=== PATIENT | male | born 1950 | race Caucasian/White ===

== ENCOUNTER 2021-04-27 01:48 | Inpatient (IN) | payer MEDICARE, SELFPAY ==
[2021-04-27] VITALS (25 sets, daily range): BP systolic 116–140; BP diastolic 63–90; PULSE 51–82; RESP 16–22; TEMP 36.1–36.8; O2SAT 94–98; BMI 40.8
--- NOTE | ~2021-04-27 | CT_ITS ---
EXAMINATION: CT abdomen pelvis wo con DATE: 04/30/2021 10:56 INDICATION: Abdominal pain. TECHNIQUE: Computed tomography (CT) of the abdomen and pelvis was performed without intravenous contr ast. Automated exposure control and iterative reconstruction technique were employed. The dose-length product was 1640.35 mGy-cm. COMPARISON: CT abdomen and pelvis 04/27/2021 FINDINGS: The visualized portions of the lung bases demonstrates a small right pleural effusion. A ca lcified right lung nodule and calcified right hilar lymph nodes are consistent with old granulomatous disease. The heart size is normal. There are coronary artery calcifications. No pericardial effusion . The liver is normal. Calcifications in the spleen are consistent with old granulomatous disease. Th ere is a gallstone in the gallbladder, which is normal in size. The pancreas, adrenal glands, and kid neys are normal. The prostate is mildly enlarged. There is diverticulosis of the colon without eviden ce of diverticulitis. There are changes of appendectomy. There is a small volume of ascites in right abdomen, including adjacent to the site of the appendectomy and around the liver. Anterior skin stapl es are noted. There are no pathologically enlarged lymph nodes. There is internal fixation of proxima l left femur. There is mild thoracolumbar spondylosis. IMPRESSION: 1. Small volume of ascites in right abdomen. 2. Small right pleural effusion. 3. Cholelithiasis. Reviewed, dictated and finalized at location A.
--- NOTE | ~2021-04-27 | NM_ITS ---
EXAMINATION: NM hepatobiliary wo pharm DATE: 05/01/2021 12:56 INDICATION: Right upper quadrant abdominal pain. COMPARISON: CT abdomen and pelvis 04/30/2021 TECHNIQUE: 4.5 mCi Tc-99m mebrofenin (Choletec) was administered intravenously. Scintigraphic images of the abdomen were obtained for one hour. Then, the patient drank 8 oz Ensure, and imaging was cont inued for 60 minutes. FINDINGS: There is normal clearance of radiotracer from the blood pool. There is homogeneous tracer u ptake by the liver. Activity progresses to the bowel and gallbladder. Gallbladder ejection fraction (GBEF) was 35%. Note that with this technique, normal GBEF >= 33%. IMPRESSION: 1. Normal hepatobiliary scintigraphy. Reviewed, dictated and finalized at location A.
--- NOTE | ~2021-04-27 | XR_ITS ---
EXAMINATION: XR abdomen obstructive series DATE: 05/01/2021 13:01 INDICATION: Abdominal pain. TECHNIQUE: Upright and supine views of the abdomen were obtained. COMPARISON: CT abdomen and pelvis 04/30/2021 FINDINGS: There is dilated small bowel in left abdomen. The colon is normal in caliber. There is a ca lcified gallstone in the gallbladder. No free intraperitoneal gas. There is a small right pleural eff usion. There is a closure device at left atrial appendage. There is instrumentation of proximal left femur. Skin clint are noted. IMPRESSION: 1. Dilated small bowel, likely adynamic ileus. 2. Cholelithiasis. 3. Small right pleural effusion. Reviewed, dictated and finalized at location A.
--- NOTE | ~2021-04-27 | CT_ITS ---
EXAMINATION: CT guide absc cath placement DATE: 05/02/2021 14:15 INDICATION: Right abdominal fluid collection. TECHNIQUE: The procedure including the risks, benefits, and alternatives was discussed with the patie nt. Risks discussed included bleeding and infection. The patient understood the risks and benefits an d agreed to proceed. The patient was confirmed to be receiving appropriate antibiotic coverage. The skin overlying the right abdomen was prepped and draped in usual sterile fashion. Anesthetic was adm inistered with 1% lidocaine subcutaneously. An 18 gauge trochar needle was inserted into the right ab dominal fluid collection with CT guidance. The needle was exchanged over a wire for 6 Macanese, 8 Frenc h, and 9 Macanese dilators and then for an 8.5 Macanese pigtail catheter. The catheter was stitched to th e skin, and a sterile dressing was applied. The mA was adjusted according to patient size. Iterative reconstruction technique was employed. The dose-length product was 200.09 mGy-cm. There were no immed iate complications. FINDINGS: CT images demonstrate the catheter within the right abdominal fluid collection. 8 mL fluid was aspirated for testing. There is a gallstone in the gallbladder, which is contracted. There is dil ated small bowel, consistent with adynamic ileus. IMPRESSION: 1. Successful CT-guided right abdominal abscess drainage. 2. 8 mL opaque, red fluid was sent for aerobic and anaerobic cultures. Reviewed, dictated and finalized at location A.
--- NOTE | ~2021-04-27 | XR_ITS ---
EXAMINATION: XR perc drain cath insrt w img DATE: 05/08/2021 13:00 INDICATION: Intra-abdominal abscess. TECHNIQUE: The right abdominal drainage catheter site was sterilely prepped and draped. I cut the exi sting percutaneous drainage catheter and injected it with contrast. I then exchanged it over a guidew genie for 10 Mongolian and 12 Mongolian dilators and then a 14 Mongolian pigtail drain under fluoroscopic guidan ce. The catheter was stitched to the skin, and a dressing was applied. Fluoroscopy exposure time was 1.2 minutes. The total number of images was 4. Total dose-area product was 7.86 Gy-cm^2. COMPARISON: CT abdomen and pelvis 05/08/2021 FINDINGS: Images demonstrate exchange of the 8.5 Mongolian pigtail drain for a new 14 Mongolian pigtail sonal in. IMPRESSION: 1. Fluoroscopy guided right abdominal percutaneous abscess drain exchange. Reviewed, dictated and finalized at location A.
--- NOTE | ~2021-04-27 | XR_ITS ---
EXAMINATION: XR abdomen/kub 1V DATE: 05/04/2021 13:03 INDICATION: Bilious vomiting. Hypoactive bowel sounds. TECHNIQUE: A supine view of the abdomen on 2 radiographs was obtained. COMPARISON: Abdomen radiographs 05/01/2021 FINDINGS: There are multiple dilated loops of small bowel. Skin clint are noted. There is internal fixation of proximal left femur. There is a gallstone in the gallbladder. There is a closure device a t the left atrial appendage. Retained epicardial pacer wires are noted. There is a small right pleura l effusion. IMPRESSION: 1. Dilated small bowel, likely adynamic ileus. 2. Small right pleural effusion. 3. Cholelithiasis. Reviewed, dictated and finalized at location A.
--- NOTE | ~2021-04-27 | CT_ITS ---
EXAMINATION: CT abdomen pelvis w con DATE: 04/27/2021 03:15 INDICATION: Abdominal pain. TECHNIQUE: Computed tomography (CT) of the abdomen and pelvis was performed with 100 mL Omnipaque 350 intravenous contrast. Automated exposure control and iterative reconstruction technique were employe d. The dose-length product was 1650.68 mGy-cm. COMPARISON: None. FINDINGS: The visualized portions of the lung bases demonstrate mild atelectasis. A calcified right l geremias nodule and calcified right hilar and mediastinal lymph nodes are consistent with old granulomatou s disease. No pleural effusion. The heart size is normal. There are coronary artery calcifications. N o pericardial effusion. Retained epicardial pacer wires are noted. Median sternotomy wires are noted. The liver is normal. Calcifications in the spleen are consistent with old granulomatous disease. The re is a gallstone in the gallbladder neck. The gallbladder is distended. The pancreas, adrenal glands , and kidneys are normal. The prostate is mildly enlarged. There is diverticulosis of the colon witho ut evidence of diverticulitis. The appendix measures 10 mm in diameter. The appendiceal lumen is not dilated. The appendiceal wall is thickened by fat deposition. There are no pathologically enlarged ly mph nodes. There is no free intraperitoneal fluid. There is internal fixation of proximal left femur. There is mild lumbar spondylosis. IMPRESSION: 1. Distended gallbladder with gallstone in the neck suspicious for acute cholecystitis. 2. Appendiceal diameter of 10 mm, likely predominantly due to fat deposition in the wall. No inflamma tion to suggest appendicitis. Reviewed, dictated and finalized at location A. IMPRESSION: 1. Distended gallbladder with gallstone in the neck suspicious for acute cholec ystitis. 2. Appendiceal diameter of 10 mm, likely predominantly due to fat deposition in the wall. No inflammation to suggest appendicitis.
--- NOTE | ~2021-04-27 | XR_ITS ---
EXAMINATION: XR abdomen obstructive series EXAM DATE: 05/06/2021 08:48 INDICATION: Ileus follow-up. Postcholecystectomy. TECHNIQUE: Frontal upright projection of the upper abdomen, frontal projection of the lower abdomen f or interpretation. Comparison is made to prior examination from 05/04/2021. FINDINGS: Persistent severely distended loops of jejunum, probably postoperative ileus. There are low er abdominal clint. No appreciable free intraperitoneal gas. Small right pleural effusion. Sternoto my wires. Mild levoscoliosis. IMPRESSION: Persistent jejunal dilation, likely postoperative ileus. Reviewed, dictated and finalized at location A.
--- NOTE | ~2021-04-27 | CT_ITS ---
EXAMINATION: CTA chest PE protocol DATE: 05/01/2021 13:08 INDICATION: Cough. TECHNIQUE: Computed tomography angiography (CTA) of the chest was performed with 100 mL Omnipaque-350 intravenous contrast timed to evaluate the pulmonary arteries. Coronal maximum intensity projection 3D-reconstructions were created by the technologist. Automated exposure control and iterative reconst ruction technique were employed. The dose-length product was 987.44 mGy-cm. COMPARISON: CT abdomen and pelvis 04/30/2021 FINDINGS: There is a small right pleural effusion. There is dependent atelectasis in right lower lobe . Calcified right lung nodules and calcified right hilar lymph nodes are consistent with old granulom atous disease. The heart demonstrates lipomatous hypertrophy of the interatrial septum. There is a cl osure device at the left atrial appendage. No pericardial effusion. There is no pulmonary embolus. Th ere is a gallstone in the gallbladder, which is normal in size. There is a small volume of perihepati c ascites. Calcifications in the spleen are consistent with old granulomatous disease. IMPRESSION: 1. No pulmonary embolus. 2. Small right pleural effusion. 3. Small volume of perihepatic ascites. 4. Cholelithiasis. Reviewed, dictated and finalized at location A.
--- NOTE | ~2021-04-27 | US_ITS ---
EXAMINATION: US venous doppler [facility] DATE: 05/01/2021 13:24 INDICATION: Lower limb edema. TECHNIQUE: Grayscale ultrasound images without and with compression and Doppler ultrasound images of the bilateral lower extremity veins were obtained. COMPARISON: None. FINDINGS: The visualized portions of right common femoral vein, profunda (deep) femoral vein, femoral vein, pop liteal vein, peroneal veins, posterior tibial veins, and greater saphenous vein outflow are patent. The visualized portions of left common femoral vein, profunda femoral vein, femoral vein, popliteal v ein, peroneal veins, posterior tibial veins, and greater saphenous vein outflow are patent. IMPRESSION: 1. No deep venous thrombosis. Reviewed, dictated and finalized at location A.
--- NOTE | ~2021-04-27 | XR_ITS ---
EXAMINATION: XR chest 2V DATE: 04/29/2021 09:06 INDICATION: Shortness of breath. TECHNIQUE: Frontal and lateral views of the chest were obtained. COMPARISON: CT abdomen and pelvis 04/27/2021 FINDINGS: A calcified left lung nodule is consistent with old granulomatous disease. No pneumonia, pl eural effusion, or pneumothorax. Blunting of right posterior costophrenic angle correlates with a sma ll diaphragmatic hernia containing fat on CT. The heart size is normal. Median sternotomy wires are n oted. There is a closure device at left atrial appendage. IMPRESSION: 1. No acute cardiopulmonary disease. Reviewed, dictated and finalized at location A.
--- NOTE | ~2021-04-27 | US_ITS ---
EXAMINATION: US abdomen complete DATE: 04/29/2021 14:06 INDICATION: Right upper quadrant abdominal pain. TECHNIQUE: Multiple grayscale and Doppler ultrasound images of the abdomen were obtained. COMPARISON: CT abdomen and pelvis 04/27/2021 FINDINGS: The pancreas is obscured by bowel gas. The liver is normal without focal lesion. There is n ormal flow in main portal vein. The gallbladder is normal in size and contains a gallstone. Gallbladd er wall thickening is noted. There is no sonographic Crowe sign. The common duct is normal and measu res 4 mm. The visualized portion of the inferior vena cava is normal. Abdominal aorta is obscured by bowel gas. The kidneys are normal in size. The spleen is normal in size. IMPRESSION: 1. Cholelithiasis. Gallbladder wall thickening may be secondary to acute or chronic cholecystitis. Co nsider hepatobiliary scintigraphy. Reviewed, dictated and finalized at location A. IMPRESSION: 1. Cholelithiasis. Gallbladder wall thickening may be secondary to acute or chr onic cholecystitis. Consider hepatobiliary scintigraphy.
--- NOTE | ~2021-04-27 | CT_ITS ---
EXAMINATION: CT abdomen pelvis wo con DATE: 05/08/2021 10:03 INDICATION: Intra-abdominal abscess. TECHNIQUE: Computed tomography (CT) of the abdomen and pelvis was performed without intravenous contr ast. Automated exposure control and iterative reconstruction technique were employed. The dose-length product was 1525.45 mGy-cm. COMPARISON: CT abdomen and pelvis 04/30/2021 FINDINGS: The visualized portions of the lung bases demonstrate a small right pleural effusion. There is dependent passive atelectasis in right lower lobe. Calcified right lung nodules and calcified rig ht hilar lymph nodes are consistent with old granulomatous disease. The heart size is normal. There a re coronary artery calcifications. There are changes of coronary artery bypass grafting. The liver is normal. There is a gallstone in the gallbladder, which is distended. Calcifications in the spleen ar e consistent with old granulomatous disease. The pancreas and adrenal glands are normal. There is cor tical thinning of the kidneys. The prostate is mildly enlarged. There is liquid stool in the colon hammonds ggesting diarrhea. There is diverticulosis of the colon without evidence of diverticulitis. There are changes of appendectomy. There is a collection of fluid and gas adjacent to the appendectomy with pe rcutaneous drain in expected position. The fluid component of the collection measures 12.4 x 3.1 x 3. 0 cm. There is a fluid collection at the undersurface of the liver measuring 7.0 x 1.0 x 2.2 cm. Ther e are no pathologically enlarged lymph nodes. There is internal fixation of left femur. There is mild thoracolumbar spondylosis. IMPRESSION: 1. Fluid and gas adjacent to the appendectomy and fluid at the undersurface of the liver with percuta neous drain in expected position near the appendectomy. The degree of gas is suspicious for leak at t he site of surgery. I flushed the drain with 10 mL of saline, but the drainage bag does not immediate ly fill as well as I would expect. Consider fluoro-guided exchange for a larger drain. 2. Small right pleural effusion, worsened from 04/30/21. 3. Cholelithiasis. Gallbladder distention is likely secondary to fasting given the recent normal HIDA scan. Reviewed, dictated and finalized at location A. IMPRESSION: 1. Fluid and gas adjacent to the appendectomy and fluid at the undersurface of the liver with percutaneous drain in expected position near the appendectomy. T he degree of gas is suspicious for leak at the site of surgery. I flushed the d rain with 10 mL of saline, but the drainage bag does not immediately fill as we ll as I would expect. Consider fluoro-guided exchange for a larger drain. 2. Small right pleural effusion, worsened from 04/30/21. 3. Cholelithiasis. Gallbladder distention is likely secondary to fasting given the recent normal HIDA scan.
--- NOTE | 2021-04-27 02:10 | ED.ABDPAIN ---
HPI - Abdominal Pain General Chief Complaint: Abdominal Pain Stated Complaint: Abdominal pain-nausea Time Seen by Provider: 04/27/21 02:05 Source: patient Mode of arrival: ambulatory Limitations: no limitations History of Present Illness HPI narrative: Patient is a 70-year-old male complaining of abdominal pain, mid abdomen, 7 out of 10, nonradiating, dull, started 3 hours ago. Patient denies any chest pain, shortness of breath, nausea, vomiting, diarrhea, fever, chills or urinary symptoms. Related Data Allergies Allergy/AdvReac Type Severity Reaction Status Date / Time No Known Allergies Allergy Verified 04/27/21 01:50 Review of Systems Review of Systems: All systems reviewed & are unremarkable except as noted in HPI and below Constitutional: Constitutional: Denies body ache(s), Denies chills, Denies excessive sweating, Denies fatigue, Denies fever(s), Denies headache(s), Denies lethargy, Denies malaise, Denies weakness and Denies weight loss Eyes: Eyes: Denies blurry vision, Denies change in vision and Denies loss of vision ENT: Denies dizziness, Denies ear discharge, Denies headache(s), Denies lip swelling, Denies epistaxis, Denies nasal congestion, Denies neck pain, Denies throat swelling and Denies tongue swelling Cardiovascular: Cardiovascular: Denies chest pain, Denies chest pain at rest, Denies chest pain with activity, Denies diaphoresis, Denies rapid heart rate, Denies edema, Denies irregular heart rhythm, Denies lightheadedness, Denies palpitations, Denies dyspnea and Denies dyspnea on exertion Respiratory: Respiratory: Denies chest congestion, Denies cough, Denies hemoptysis, Denies dyspnea and Denies dyspnea on exertion Gastrointestinal: Gastrointestinal: Denies melena, Denies hematochezia, Denies diarrhea, Denies nausea, Denies vomiting and Denies hematemesis Musculoskeletal: Musculoskeletal: Denies abnormal gait, Denies deformity, Denies joint swelling, Denies limited range of motion, Denies neck pain and Denies numbness Neurologic: Denies Abnormal speech present, Denies abnormal gait, Denies confusion, Denies dizziness, Denies headache(s), Denies focal weakness, Denies loss of vision, Denies numbness, Denies Other visual disturbances, Denies Sensory deficit (Neuro) and Denies weakness Psychiatric: Psychiatric: Denies confusion, Denies depression, Denies auditory hallucinations, Denies homicidal ideation and Denies suicidal ideation Endocrine: Endocrine: Denies cold intolerance, Denies excessive sweating, Denies fatigue, Denies heat intolerance and Denies palpitations Hematologic/Lymphatic: Hematologic/Lymphatic: Denies easy bleeding and Denies easy bruising Allergic/Immunologic: Allergic/Immunologic: Denies lip swelling, Denies throat swelling and Denies tongue swelling PMFSH Comments Past medical history: Coronary artery disease, CABG, hypertension, hyperlipidemia, COPD Family history: Negative for AK negative for aneurysm Social history: Non-smoker no EtOH or drug use Exam Const: General: cooperative, healthy appearing, comfortable, no acute distress, well developed, alert and awake; No confusion Orientation/consciousness: oriented to person, oriented to place, oriented to time, patient oriented x3 and No confusion Limitations: no limitations HENMT: Head: normal to inspection, normocephalic and atraumatic Ears: hearing grossly normal bilaterally, TM normal on the right and TM normal on the left General nose exam: Normal external nose present, Normal nares present and No nasal discharge present Face and sinus: normal facial exam Mouth: Yes Normal oral and palatal mucosa present, Yes lip normal, Yes tongue normal and Yes oropharynx normal Throat: posterior oropharynx normal, tonsils normal and uvula midline Eyes: General: appearance normal, both eyes and all related structures Pupils: Equal, round and reactive pupils present EOM: EOMs intact bilaterally Neck: Neck: normal visual inspection, full ROM, no ly
--- NOTE | 2021-04-27 02:21 | ECG_ITS ---
Measurements Intervals [place] Rate: 58 P: 64 LA: 235 QRS: 21 QRSD: 91 T: 34 QT: 412 QTc: 405 Interpretive Statements SINUS BRADYCARDIA WITH MARKED SINUS ARRHYTHMIA WITH FIRST DEGREE AV BLOCK ATRIAL PREMATURE COMPLEX BASELINE ARTIFACT- I, II, III, AVR, AVL, AVF, V3-V6 ABNORMAL ECG Electronically Signed On 04-27-2021 7:15:17 CDT by Misael Hay D.O.
[2021-04-27 02:36] LABS: Basophils Absolute Auto 0.1 K/mm3 (0.0-0.1); Basophils Percent Auto 0.4 % (0.2-1.2); Eosinophils Absolute Auto 0.2 K/mm3 (0-0.3); Eosinophils Percent Auto 1.4 % (0-4.4); Hematocrit 45.9 % (42.0-52.0); Hemoglobin 14.6 g/dL (14.0-18.0); Immature Granulocyte Absolute 0.06 K/mm3 (0.00-0.031); Immature Granulocyte Percent A 0.4 % (0-0.5); Lymphocytes Absolute Auto 2.53 K/mm3 (0.9-3.2); Lymphocytes Percent Auto 17.8 % (18.3-44.2); Mean Corpuscular HGB Conc 31.8 g/dl (32-36); Mean Corpuscular Hemoglobin 29.6 pg (26-34); Mean Corpuscular Volume 93.1 fl (80-100); Mean Platelet Volume 11.6 fl (7.4-10.4); Monocytes Absolute Auto 1.2 K/mm3 (0.1-0.6); Monocytes Percent Auto 8.3 % (2.6-8.5); Neutrophils Absolute Auto 10.2 K/mm3 (1.3-6.7); Neutrophils Percent Auto 71.7 % (45.5-73.1); Platelet Count Result 233 k/mm3 (150-375); Red Blood Count 4.93 M/mm3 (4.6-6.20); Red Cell Distribution Width 13.5 % (11.5-14.5); White Blood Count 14.2 K/mm3 (4.5-10.0)
[2021-04-27] MEDS: HYDROmorphone HCL INJ (*CRX) 1 MG/ML SYR 0.5 MG IV PUSH (02:46)
[2021-04-27] MEDS: PROMETHAZINE HCL 25 MG/ML AMPUL 12.5 MG IV PUSH (02:47)
[2021-04-27 02:48] LABS: Alanine Aminotransferase 21 U/L (4-50); Albumin Level 4.5 g/dL (3.5-5.1); Alkaline Phosphatase 87 U/L (38-126); Anion Gap 9 mmol/L (8-16); Aspartate Amino Transferase 29 U/L (17-59); Bilirubin,Total 0.1 mg/dL (0.2-1.3); Blood Urea Nitrogen 16 mg/dL (9-20); Calcium 9.5 mg/dL (8.4-10.2); Carbon Dioxide 27 mmol/L (22-30); Chloride 105 mmol/L (98-107); Estimated Glomerular Filt Rate > 60; Glucose 159 mg/dL (75-110); Lipase 24 U/L (23-300); Potassium 4.5 mmol/L (3.4-5.0); Sodium 141 mmol/L (137-145)
[2021-04-27] MEDS: SODIUM CHLORIDE 0.9% IV 50 ML 100 ML (02:48)
[2021-04-27] MEDS: SODIUM CHLORIDE 0.9% IV 1,000 ML 999 ML IV CONT (02:48)
[2021-04-27 02:57] LABS: Prothrombin Time 13.9 Seconds (11.1-14.7)
[2021-04-27 02:58] LABS: Partial Thromboplastin Time 32.5 SECONDS (22.3-36.8)
[2021-04-27] MEDS: MORPHINE SULFATE (*CRX) 2 MG/ML INJ IV PUSH (03:46)
[2021-04-27] MEDS: LACTATED RINGERS 1,000 ML 125 ML IV CONT (05:20)
--- NOTE | 2021-04-27 06:24 | ADMGEN ---
This patient, Dale Barros, was admitted to Medical Room 243-01. Patient/family oriented to hospital policies and general routines including ID bracelet, bed and alarms, visiting hours, pain management, procedures, bathroom and other care routines, personal items, smoking policy, room service/diet, and visiting hours. Information on how to activate the Rapid Response Team has been discussed. Patient/Family are encouraged to report perceived risks to care and to ask questions if they do not understand what they are told or what they should do.
[2021-04-27 07:40] LABS: Add Urine Microscopic? NO; Appearance Urine Clear (Clear); Bilirubin Urine Negative (Negative); Blood Urine Negative (Negative); Color Urine Yellow (Yellow); Glucose Urine UA Negative (Negative); Ketones Urine Negative (Negative); Leukocyte Esterase Ur Negative LEU/UL (Negative); Nitrate Urine Negative (Negative); Protein Urine Negative (Negative); Urobilinogen Urine Negative mg/dL (<2.0)
--- NOTE | 2021-04-27 07:40 | PC.NURSE ---
To OR per Stretcher, IV Saline locked. Report given to Maria Esther.
[2021-04-27 07:49] LABS: Specific Grav Ur 1.043 (1.001-1.035)
--- NOTE | 2021-04-27 07:50 | WPDANESEPPF ---
Anes - Initial Pre Proc Eval Procedure: Operation Date: 04/27/21 08:30 Proposed Procedures p Laparoscopic Appendectomy - Milena Luis MD Date/Time: 04/27/21 07:50 Surgeon: Milena Luis MD Pre Op Diagnosis: Acute Appendicitis Patient Data Age: 70 Gender: M Height: 6 ft Weight: 136.8 kg Last Vital Signs Temp 36.7 C 04/27/21 06:29 Pulse 64 04/27/21 06:29 Resp 20 04/27/21 06:29 BP 126/65 04/27/21 06:29 Pulse Ox 98 04/27/21 06:29 Allergies Allergy/AdvReac Type Severity Reaction Status Date / Time No Known Allergies Allergy Verified 04/27/21 06:50 Home Medications Medication Instructions Recorded Confirmed Type albuterol sulfate [Proventil HFA] 1 puff INHALATION TID PRN 04/27/21 04/27/21 History apixaban [Eliquis] 5 mg PO BID 04/27/21 04/27/21 History digoxin 125 mcg PO DAILY 04/27/21 04/27/21 History diltiazem HCl [Tiadylt ER] 240 mg PO HS 04/27/21 04/27/21 History furosemide 20 mg PO DAILY 04/27/21 04/27/21 History lisinopril 10 mg PO HS 04/27/21 04/27/21 History pravastatin 40 mg PO HS 04/27/21 04/27/21 History sotalol 80 mg PO BID 04/27/21 04/27/21 History Laboratory Tests 04/27/21 04/27/21 04/27/21 02:28 02:28 02:28 WBC 14.2 K/mm3 H K/mm3 (4.5-10.0) RBC 4.93 M/mm3 M/mm3 (4.6-6.20) Hgb 14.6 g/dL g/dL (14.0-18.0) Hct 45.9 % % (42.0-52.0) MCV 93.1 fl fl (80-100) MCH 29.6 pg pg (26-34) MCHC 31.8 g/dl L g/dl (32-36) RDW 13.5 % % (11.5-14.5) Plt Count 233 k/mm3 k/mm3 (150-375) MPV 11.6 fl H fl (7.4-10.4) Immature Gran % (Auto) 0.4 % % (0-0.5) Neut % (Auto) 71.7 % % (45.5-73.1) Lymph % (Auto) 17.8 % L % (18.3-44.2) [place] % (Auto) 8.3 % % (2.6-8.5) Eos % (Auto) 1.4 % % (0-4.4) Baso % (Auto) 0.4 % % (0.2-1.2) Lymph # (Auto) 2.53 K/mm3 K/mm3 (0.9-3.2) [place] # (Auto) 1.2 K/mm3 H K/mm3 (0.1-0.6) Eos # (Auto) 0.2 K/mm3 K/mm3 (0-0.3) Baso # (Auto) 0.1 K/mm3 K/mm3 (0.0-0.1) Abs Immat Gran (auto) 0.06 K/mm3 H K/mm3 (0.00-0.031) Absolute Neuts (auto) 10.2 K/mm3 H K/mm3 (1.3-6.7) Absolute Nucleated RBC 0.0 K/mm3 K/mm3 (0.0-0.012) Nucleated RBC % 0.0 % % (0.0-0.2) PT 13.9 Seconds Seconds (11.1-14.7) INR 1.0 APTT 32.5 SECONDS SECONDS (22.3-36.8) Sodium 141 mmol/L mmol/L (137-145) Potassium 4.5 mmol/L mmol/L (3.4-5.0) Chloride 105 mmol/L mmol/L (98-107) Carbon Dioxide 27 mmol/L mmol/L (22-30) Anion Gap 9 mmol/L mmol/L (8-16) BUN 16 mg/dL mg/dL (9-20) Creatinine 0.80 mg/dL mg/dL (0.7-1.3) Estim Creat Clear Calc Not Reportable Estimated GFR > 60 (59 - ) Glucose 159 mg/dL H mg/dL (75-110) Calcium 9.5 mg/dL mg/dL (8.4-10.2) Total Bilirubin 0.1 mg/dL L mg/dL (0.2-1.3) AST 29 U/L U/L (17-59) ALT 21 U/L U/L (4-50) Alkaline Phosphatase 87 U/L U/L (38-126) Total Protein 8.0 g/dL g/dL (6.3-8.2) Albumin 4.5 g/dL g/dL (3.5-5.1) Lipase 24 U/L U/L (23-300) Urine Color Urine Appearance Urine pH Ur Specific [place] Urine Protein Urine Glucose (UA) Urine Ketones Ur Blood (Man) Urine Nitrate Urine Bilirubin Urine Urobilinogen Leukocyte Esterase Rfl 04/27/21 07:29 WBC RBC Hgb Hct MCV MCH MCHC RDW Plt Count MPV Immature Gran % (Auto) Neut % (Auto) Lymph % (Auto) [place] % (Auto) Eos % (Auto) Baso % (Auto) Lymph # (Auto)
[2021-04-27] MEDS: LACTATED RINGERS 1,000 ML 30 ML IV CONT ×2 (08:03→10:20)
--- NOTE | 2021-04-27 08:24 | PM.IMHP ---
H&P: HPI History of Present Illness Date/Time: 04/27/21 08:24 Pt is a 70 y/o M that presented to ED early this am c/o severe lower abd pain. Pt reports pain initially diffuse in nature but now largely localized to RLQ. Pt reports that pain started acutely around 11pm and that he had felt normal and well yesterday prior to pain. Pt denies any associated symptomatology and denies any previous episodes. Chief Complaint: acute appendicitis Review of Systems Constitutional: Constitutional: Denies anorexia, Denies body ache(s), Denies chills, Denies fatigue, Denies fever(s), Denies headache(s), Denies increased appetite, Denies lethargy, Denies malaise, Denies poor appetite, Denies weakness, Reports weight gain and Denies weight loss Eyes: Eyes: Reports no additional eye complaints ENT: Reports system reviewed and no additional complaints, except as documented Cardiovascular: Cardiovascular: Reports no additional cardiovascular complaints Respiratory: Respiratory: Reports no additional respiratory complaints Gastrointestinal: Gastrointestinal: Reports as per HPI Genitourinary: Genitourinary: Reports no additional male genitourinary complaints Musculoskeletal: Musculoskeletal: Reports no additional musculoskeletal complaints Integumentary/Breasts: Skin/Breast: Reports system reviewed and no additional complaints, except as docu Neurologic: Reports system reviewed and no additional complaints, except as documented Psychiatric: Psychiatric: Reports no additional psychiatric complaints Endocrine: Endocrine: Reports no additional endocrine complaints Hematologic/Lymphatic: Hematologic/Lymphatic: Reports no additional hematologic/lymphatic complaints Allergic/Immunologic: Allergic/Immunologic: Reports no additional allergic/immunologic complaints [facility] Past Medical History Medical History (Updated 04/27/21 @ 08:32 by Milena Luis MD) COPD (chronic obstructive pulmonary disease) HTN (hypertension) Morbid obesity KELLIE (obstructive sleep apnea) Surgical History Surgical History (Updated 04/27/21 @ 08:32 by Milena Luis MD) H/O cardiac radiofrequency ablation History of open heart surgery Social History Social History Smoking status: Former smoker Tobacco type: cigarettes Alcohol intake: never Substance use: never Gender identity (if verbalized by the patient): Male Spiritual care concerns: No Comments FH - denies any colorectal cancers, IBD Meds Home Medications and Allergies Home Medications Medication Instructions Recorded Confirmed Type albuterol sulfate [Proventil HFA] 1 puff INHALATION TID PRN 04/27/21 04/27/21 History apixaban [Eliquis] 5 mg PO BID 04/27/21 04/27/21 History digoxin 125 mcg PO DAILY 04/27/21 04/27/21 History diltiazem HCl [Tiadylt ER] 240 mg PO HS 04/27/21 04/27/21 History furosemide 20 mg PO DAILY 04/27/21 04/27/21 History lisinopril 10 mg PO HS 04/27/21 04/27/21 History pravastatin 40 mg PO HS 04/27/21 04/27/21 History sotalol 80 mg PO BID 04/27/21 04/27/21 History Allergies Allergy/AdvReac Type Severity Reaction Status Date / Time No Known Allergies Allergy Verified 04/27/21 08:17 Vital Signs Vital Signs - 24 hr 04/27/21 01:53 04/27/21 03:44 04/27/21 05:20 Temperature 36.4 C L Pulse Rate 61 68 61 Respiratory Rate 20 18 18 Blood Pressure 140/90 137/80 132/78 Pulse Oximetry 95 95 98 04/27/21 06:08 04/27/21 06:29 04/27/21 07:53 Temperature 36.7 C 36.6 C Pulse Rate 60 64 56 L Respiratory Rate 20 18 Blood Pressure 126/65 120/64 Pulse Oximetry 98 98 Exam Const: General: cooperative, acute distress mild and uncomfortable Nutritional Appearance: obese Orientation/consciousness: patient oriented x3 Limitations: no limitations HENMT: Head: normal to inspection, normocephalic and atraumatic Ears: hearing grossly normal bilaterally General nose exam: Normal external nose present
--- NOTE | 2021-04-27 08:34 | WPDHPUPDATE1 ---
History and Physical Update Update Date/Time: 04/27/21 08:34 History and Physical has been reviewed, including an updated exam of the patient. There are NO changes in the patient's condition. Risks, benefits, and alternatives have been discussed and questions answered. Patient agrees to proceed with procedure.
--- NOTE | 2021-04-27 10:09 | SUR.OPER ---
EBL:50cc
[2021-04-27] MEDS: BUPIVACAINE/EPINEPHRINE 0.5% 50 ML VIAL INFILTRATE (10:15)
[2021-04-27] MEDS: fentaNYL CITRATE INJ (*CRX) 100 MCG/2 ML VIAL 25 MCG IV PUSH ×6 (10:27→11:21)
--- NOTE | 2021-04-27 10:28 | PM.PROC ---
Procedure Note - Detailed Date of procedure: 04/27/21 Pre-op diagnosis: Acute Appendicitis Post-op diagnosis: same Procedure performed: laparoscopic converted to hand assisted laparoscopic appendectomy Description of procedure: The patient was taken to the operating room placed in the supine position. After adequate induction of general anesthesia, the patient was prepped and draped in the normal sterile fashion. A time-out was then done to verify the patient's identity as well as the procedure being performed. I began by making a 5 mm incision in the infraumbilical region, through this a Veress needle was placed in the peritoneal cavity. CO2 gas was then insufflated. After adequate pneumoperitoneum was achieved, the Veress needle was removed and a 5 mm Optiview trocar was placed under direct visualization. I then placed the endoscope through this trocar site under direct visualization placed 2 further 5 mm suprapubic port as well as an additional 12 mm port in the left lower abdomen. Then began dissection of right lower quadrant. It was noted at this time that the patient had a large amount of intraperitoneal fat and adhesions in this area. Given the patient's body habitus, I found it very difficult to dissect in visualize this area. After quite a bit of dissection, I did identify an area of fat that was quite inflamed. I did go ahead and remove this area however upon examination the appendix was not present. I then converted the periumbilical port site to a hand port. Once I was able to palpate the area was able to medialize the cecum. It was noted that the patient had inflamed retrocecal appendix. Once I was able to get the appendix to come up, was able to create a window between the appendix itself in the mesoappendix. The stapler was then placed through the 12 mm port site and I was able to transect both the appendix and the mesoappendix with 2 staple loads. The appendiceal specimen was then removed and sent to pathology for further review. I then copiously irrigated this area. No other pathology was seen and all staple lines were noted to be intact. At this point the abdomen was desufflated and all ports were removed. The fascia of the hand port site was closed with a 1. PDS suture. All incisions were then closed with skin clint. The patient tolerated the procedure well and was extubated in the operating room postoperative. He will be sent to the recovery room in stable condition. Anesthesia: GLMA Surgeon: Milena Luis MD Estimated blood loss (mL): 50 Drains: No Packing: No Pathology: yes Complications: No immediate complications Condition: stable Disposition: PACU Findings: Large amount of intraperitoneal fat and adhesions in the right mid abdomen, retrocecal appendix
[2021-04-27] MEDS: MORPHINE SULFATE (*CRX) 4 MG/ML INJ IV PUSH (12:36)
[2021-04-27] MEDS: DIGOXIN TAB 125 MCG TABLET PO (12:37)
[2021-04-27] MEDS: ONDANSETRON INJ 4 MG/2 ML VIAL IV PUSH (12:37)
[2021-04-27] MEDS: HYDROcodone/acetaminophen (*CRX) 5-325 MG TABLET 1 TAB PO ×2 (14:49→21:24)
[2021-04-27] MEDS: KETOROLAC 30 MG/ML VIAL (*BKC) IV PUSH ×2 (18:10→23:26)
[2021-04-27] MEDS: SOTALOL HCL 80 MG TABLET PO (18:10)
[2021-04-27] MEDS: DOCUSATE SODIUM 100 MG CAPSULE PO (21:22)
[2021-04-27] MEDS: PRAVASTATIN SODIUM 20 MG TABLET 40 MG PO (21:22)
[2021-04-27] MEDS: lisinopriL 10 MG TABLET PO (21:22)
[2021-04-28] VITALS (17 sets, daily range): BP systolic 113–145; BP diastolic 56–73; PULSE 58–102; RESP 16–20; TEMP 36.2–37.4; O2SAT 90–97
[2021-04-28] MEDS: KETOROLAC 30 MG/ML VIAL (*BKC) IV PUSH ×2 (04:02→08:52)
[2021-04-28 05:34] LABS: Hematocrit 42.2 % (42.0-52.0); Hemoglobin 13.6 g/dL (14.0-18.0); Mean Corpuscular HGB Conc 32.2 g/dl (32-36); Mean Corpuscular Hemoglobin 29.5 pg (26-34); Mean Corpuscular Volume 91.5 fl (80-100); Mean Platelet Volume 11.9 fl (7.4-10.4); Platelet Count Result 217 k/mm3 (150-375); Red Blood Count 4.61 M/mm3 (4.6-6.20); Red Cell Distribution Width 13.5 % (11.5-14.5); White Blood Count 18.3 K/mm3 (4.5-10.0)
[2021-04-28 05:38] LABS: Anion Gap 5 mmol/L (8-16); Blood Urea Nitrogen 15 mg/dL (9-20); Calcium 8.8 mg/dL (8.4-10.2); Carbon Dioxide 28 mmol/L (22-30); Chloride 103 mmol/L (98-107); Estimated CRCL calculation 89 ml/min; Estimated Glomerular Filt Rate > 60; Glucose 141 mg/dL (75-110); Potassium 4.7 mmol/L (3.4-5.0); Sodium 136 mmol/L (137-145)
[2021-04-28] MEDS: ONDANSETRON INJ 4 MG/2 ML VIAL IV PUSH ×2 (06:31→21:08)
[2021-04-28] MEDS: HYDROmorphone HCL INJ (*CRX) 1 MG/ML SYR IV PUSH ×2 (06:32→10:42)
[2021-04-28] MEDS: SOTALOL HCL 80 MG TABLET PO ×2 (08:40→17:41)
[2021-04-28] MEDS: FUROSEMIDE 20 MG TABLET PO (08:40)
[2021-04-28] MEDS: DOCUSATE SODIUM 100 MG CAPSULE PO ×2 (08:40→21:09)
[2021-04-28] MEDS: HYDROcodone/acetaminophen (*CRX) 5-325 MG TABLET 1 TAB PO (08:40)
[2021-04-28] MEDS: DIGOXIN TAB 125 MCG TABLET PO (08:52)
--- NOTE | 2021-04-28 11:58 | PM.PNGS ---
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 Reports crampy pain in R mid abdomen. Review of Systems Review of Systems: All systems reviewed & are unremarkable except as noted in HPI and below Exam Const: General: cooperative, acute distress moderate and tired appearing Nutritional Appearance: obese Orientation/consciousness: patient oriented x3 Resp: Effort & Inspection: normal respiratory effort Auscultation: diminished lung sounds Cardio: Rate: regular rate Rhythm: regular rhythm GI: Inspection: normal to inspection, distended and incision GI Palp: Yes Soft to palpation and Yes Tenderness to palpation present (GI) Other: soft, mod dist, +TTP R mid abd, incisional TTP Objective Data Vital Signs Vital Signs: Vital Signs - 24 hr 04/27/21 12:00 04/27/21 12:15 04/27/21 12:30 Temperature 36.1 C L 36.4 C L Pulse Rate 57 L 72 71 Respiratory Rate 18 20 Blood Pressure 127/75 131/80 Pulse Oximetry 96 98 04/27/21 12:37 04/27/21 13:00 04/27/21 14:00 Temperature 36.4 C L 36.7 C Pulse Rate 71 79 82 Respiratory Rate 18 18 Blood Pressure 135/72 120/89 Pulse Oximetry 98 98 04/27/21 16:00 04/27/21 18:00 04/27/21 18:10 Temperature 36.8 C Pulse Rate 70 78 64 Respiratory Rate 18 Blood Pressure 127/63 Pulse Oximetry 97 04/27/21 20:00 04/27/21 22:00 04/28/21 00:00 Temperature 36.6 C Pulse Rate 82 75 72 Respiratory Rate 20 Blood Pressure 116/65 Pulse Oximetry 95 04/28/21 00:43 04/28/21 04:00 04/28/21 06:41 Temperature 36.6 C 36.2 C L Pulse Rate 76 59 L 58 L Respiratory Rate 20 20 Blood Pressure 120/72 113/56 L Pulse Oximetry 92 93 04/28/21 08:00 04/28/21 08:40 04/28/21 08:52 Temperature Pulse Rate 74 70 70 Respiratory Rate Blood Pressure Pulse Oximetry 04/28/21 10:31 Temperature 36.6 C Pulse Rate 78 Respiratory Rate 18 Blood Pressure 117/66 Pulse Oximetry 97 Intake/Output Intake/Output: Intake & Output 04/25/21 04/26/21 04/27/21 04/28/21 23:59 23:59 23:59 23:59 Intake Total 2610 550 Output Total 650 300 Balance 1960 250 Meds/Results Medications: Active Medications Generic Name Dose Route Start Last Admin Trade Name Freq PRN Reason Stop Dose Admin Hydrocodone Bitart/Acetaminophen 1 tab 04/27/21 10:38 04/28/21 08:40 Hydrocodone/Acetaminophen (*Crx) 5-325 Mg Tablet PO 1 tab Q4H PRN Administration Pain Rated 4-6 Albuterol 1 puff 04/27/21 11:39 Albuterol Sulfate (*Sp) Aerosol 1 Puff INHALATION TID PRN Shortness Of Breath Digoxin 125 mcg 04/27/21 11:45 04/28/21 08:52 Digoxin Tab 125 Mcg Tablet PO 125 mcg DAILY KEILY Administration Diltiazem HCl 240 mg 04/27/21 21:00 04/27/21 21:23 Diltiazem Hcl Cd 240 Mg Cap.Er.24h PO 240 mg HS KEILY Administration Docusate Sodium 100 mg 04/27/21 21:00 04/28/21 08:40 Docusate Sodium 100 Mg Capsule PO 100 mg Q12HR KEILY Administration Furosemide 20 mg 04/28/21 09:00 04/28/21 08:40 Furosemide 20 Mg Tablet PO 20 mg DAILY KEILY Administration Hydromorphone HCl 1 mg 04/27/21 15:55 04/28/21 10:42 Hydromorphone Hcl Inj (*Crx) 1 Mg/Ml Syr IV PUSH 1 mg Q2H PRN Administration Pain rated 7-10 Hydromorphone HCl 6 mg in 30 mls @ 0 mls/hr 04/28/21 11:57 Dilaudid 0.2 Mg/Ml [employer] Ax Consultant IV CONT .Q0M PRN TRUCK TECHNICIAN Management Protocol Per Protocol Ketorolac Tromethamine 30 mg 04/27/21 16:00 04/28/21 08:52 Ketorolac 30 Mg/Ml Vial (*Bkc) IV PUSH 3
[2021-04-28] MEDS: SODIUM CHLORIDE 0.9% IV 1,000 ML 30 ML IV CONT (14:09)
[2021-04-28] MEDS: HYDROmorphon 0.2MG/ML PCA(*CRX 6 MG/30 ML PCA.VIAL IV CONT (14:10)
[2021-04-28] MEDS: PRAVASTATIN SODIUM 20 MG TABLET 40 MG PO (21:09)
[2021-04-28] MEDS: lisinopriL 10 MG TABLET PO (21:09)
[2021-04-29] VITALS (22 sets, daily range): BP systolic 100–122; BP diastolic 48–70; PULSE 62–85; RESP 16–20; TEMP 36.4–36.6; O2SAT 90–96
[2021-04-29] MEDS: HYDROmorphon 0.2MG/ML PCA(*CRX 6 MG/30 ML PCA.VIAL IV CONT (02:46)
[2021-04-29 05:02] LABS: Hematocrit 42.6 % (42.0-52.0); Hemoglobin 13.7 g/dL (14.0-18.0); Mean Corpuscular HGB Conc 32.2 g/dl (32-36); Mean Corpuscular Volume 93.4 fl (80-100); Mean Platelet Volume 12.5 fl (7.4-10.4); Platelet Count Result 194 k/mm3 (150-375); Red Blood Count 4.56 M/mm3 (4.6-6.20); White Blood Count 21.4 K/mm3 (4.5-10.0)
[2021-04-29 05:13] LABS: Anion Gap 6 mmol/L (8-16); Blood Urea Nitrogen 30 mg/dL (9-20); Calcium 8.6 mg/dL (8.4-10.2); Carbon Dioxide 28 mmol/L (22-30); Chloride 100 mmol/L (98-107); Estimated CRCL calculation 54 ml/min; Estimated Glomerular Filt Rate 40; Glucose 129 mg/dL (75-110); Sodium 134 mmol/L (137-145)
--- NOTE | 2021-04-29 06:22 | PC.NURSE ---
pt only had 100ml of urine output for the night. Per bladder scan pt had 64ml of urine in bladder. pt tells me he is not drinking because he has trouble using the urinal by himself. Encouraged and explained the importance of adequate fluid intake and told the patient we would assist him with using the urinal. Pt verbalizes understanding.
--- NOTE | 2021-04-29 07:08 | PM.PNGS ---
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, encourage limit of narcotic use given ileus (2) COPD (chronic obstructive pulmonary disease): Code(s): J44.9 - Chronic obstructive pulmonary disease, unspecified Status: Acute Assessment and Plan: c/o SOB, will get CXR for further eval (3) Leukocytosis: Code(s): D72.829 - Elevated white blood cell count, unspecified Status: Acute Assessment and Plan: likely pulmonary in nature, will get CXR, ask hospitalist to see, start Cipro (4) Ileus: Code(s): K56.7 - Ileus, unspecified Status: Acute Assessment and Plan: limit narcotic use, encourage ambulation Subjective Subjective Date/Time Seen: 04/29/21 07:08 feels better today, pain much better, still c/o SOB, now spitting up greenish flem, feli clears, no bowel fxn, pt afraid to take in liquids because he is embarassed to ask nursing to help c urination Review of Systems Review of Systems: All systems reviewed & are unremarkable except as noted in HPI and below Exam Const: General: cooperative, comfortable and ill appearing Nutritional Appearance: obese Orientation/consciousness: patient oriented x3 Resp: Effort & Inspection: audible wheezes and labored Auscultation: diminished lung sounds Cardio: Rate: regular rate Rhythm: regular rhythm GI: Inspection: normal to inspection, distended and incision GI Palp: Yes Soft to palpation, Yes Tenderness to palpation present (GI) and No Guarding due to palpation present (GI) Other: soft, mod dist, jenn TTP, incisions C/D/I Objective Data Vital Signs Vital Signs: Vital Signs - 24 hr 04/28/21 08:00 04/28/21 08:40 04/28/21 08:52 Temperature Pulse Rate 74 70 70 Respiratory Rate Blood Pressure Pulse Oximetry 04/28/21 10:31 04/28/21 12:00 04/28/21 14:00 Temperature 36.6 C 36.6 C Pulse Rate 78 75 69 Respiratory Rate 18 18 Blood Pressure 117/66 145/66 H Pulse Oximetry 97 96 04/28/21 14:10 04/28/21 16:00 04/28/21 17:41 Temperature Pulse Rate 98 76 Respiratory Rate 20 Blood Pressure Pulse Oximetry 94 04/28/21 18:30 04/28/21 20:00 04/28/21 20:08 Temperature 37.4 C Pulse Rate 97 98 Respiratory Rate 16 18 Blood Pressure 130/57 L Pulse Oximetry 90 04/28/21 22:00 04/29/21 00:00 04/29/21 01:13 Temperature 36.8 C 36.6 C Pulse Rate 102 H 80 80 Respiratory Rate 20 20 Blood Pressure 121/73 102/59 L Pulse Oximetry 93 92 04/29/21 02:18 04/29/21 02:46 04/29/21 04:00 Temperature Pulse Rate 72 Respiratory Rate 20 Blood Pressure 122/70 Pulse Oximetry 93 04/29/21 04:46 04/29/21 06:00 Temperature 36.6 C Pulse Rate 72 Respiratory Rate 20 20 Blood Pressure 107/61 Pulse Oximetry 92 92 Intake/Output Intake/Output: Intake & Output 04/26/21 04/27/21 04/28/21 04/29/21 23:59 23:59 23:59 23:59 Intake Total 2610 1670 230 Output Total 650 600 100 Balance 1960 1070 130 Meds/Results Medications: Active Medications Generic Name Dose Route Start Last Admin Trade Name Freq PRN Reason Stop Dose Admin Hydrocodone Bitart/Acetaminophen 1 tab 04/29/21 07:04 Hydrocodone/Acetaminophen (*Crx) 10-325 Mg Tablet PO Q4H PRN Pain Rated 7-10 Hydrocodone Bitart/Acetaminophen 1 tab 04/29/21 07:04 Hydrocodone/Acetaminophen (*Crx) 10-325 Mg Tablet PO Q4H PRN Pain Rated 7-10 Albuterol 1 puff 04/27/21 11:39 Albuterol Sulfate (*Sp) Aerosol 1 Puff INHALATION TID PRN Shortness Of Breath Digoxin 125 mcg 04/27/21 11:45 04/28/21 08:52 Digoxin Tab 125 Mcg Tablet PO 125 mcg DAILY [facility] Administrati
[2021-04-29] MEDS: CIPROFLOXACIN 400 MG/D5W 200ML 200 ML 200 MG IVPB ×2 (07:55→21:22)
[2021-04-29] MEDS: HYDROcodone/acetaminophen (*CRX) 10-325 MG TABLET 1 TAB PO ×4 (07:55→21:23)
[2021-04-29] MEDS: SOTALOL HCL 80 MG TABLET PO (07:57)
[2021-04-29] MEDS: DIGOXIN TAB 125 MCG TABLET PO (07:57)
[2021-04-29] MEDS: DOCUSATE SODIUM 100 MG CAPSULE PO ×2 (07:57→21:23)
[2021-04-29] MEDS: SODIUM CHLORIDE 0.9% IV 1,000 ML 125 ML IV CONT ×2 (10:15→18:56)
--- NOTE | 2021-04-29 10:15 | P.CONIM_ITS ---
Assessment and Plan Assessment and plan (1) ANNE MARIE (acute kidney injury): Code(s): N17.9 - Acute kidney failure, unspecified Status: Acute Assessment and Plan: * 04/29 creatinine 1.7 up from baseline of 0.8 on 04/27 and 1.0 on 04/28 * This is likely due to a combination of volume depletion due to 3rd spacing and self-inflicted fluid restriction and a combination of nonsteroidal anti- inflammatory drug (ketorolac) with lisinopril. * Urinary retention may be contributing though bedside bladder scan did not show significant urinary retention. However last urination was 04/28 * Postoperative Cipro could be causing acute interstitial nephritis * Ultrasound abdomen * Urine for urea, creatinine, eosinophils * Fluid challenge with 1 L of normal saline as BUN and creatinine are both up at blood pressure is soft * Hold lisinopril * Hold diltiazem due to soft BP that may impair renal perfusion * Avoid nephrotoxic drugs * Follow-up lab (2) Acute appendicitis: Qualifiers: Acute appendicitis type: unspecified acute appendicitis type Qualified Code(s): K35.80 - Unspecified acute appendicitis Code(s): K35.80 - Unspecified acute appendicitis Status: Acute Assessment and Plan: * His appendectomy was uneventful with a retrocecal appendix * His level of postoperative abdominal pain is worrisome but may be related to the extent of his surgery and his morbid obesity * Preoperative CT the abdomen showed gallbladder distention with stone in the gallbladder neck concerning for cholecystitis. The patient has known chronic cholelithiasis. * Postoperative abscess is unlikely at this point (3) Leukocytosis: Qualifiers: Leukocytosis type: unspecified Qualified Code(s): D72.829 - Elevated white blood cell count, unspecified Code(s): D72.829 - Elevated white blood cell count, unspecified Status: Acute Assessment and Plan: * Differential diagnosis includes demargination from appendectomy and postoper ative pain and urinary retention, acute cholecystitis, postoperative abscess * Obtain ultrasound of abdomen, repeat urinalysis * Pending results of abdominal ultrasound consider HIDA scan (4) Cholelithiasis: Qualifiers: Cholelithiasis location: gallbladder Cholecystitis presence: without cholecystitis Biliary obstruction: without biliary obstruction Qualified Code(s): K80.20 - Calculus of gallbladder without cholecystitis without obstruction Code(s): K80.20 - Calculus of gallbladder without cholecystitis without obstruction Status: Acute Assessment and Plan: * Chronic with possible cholecystitis * Ultrasound of abdomen * Pending results and progression of pain will consider HIDA scan (5) Paroxysmal atrial fibrillation: Code(s): I48.0 - Paroxysmal atrial fibrillation Status: Acute Assessment and Plan: * Continue sotalol * Resume Eliquis as soon as Dr. Drew is comfortable with that postoperatively * Hold diltiazem due to soft blood pressure * Monitor on telemetry (6) HTN (hypertension): Qualifiers: Hypertension type: unspecified Qualified Code(s): I10 - Essential (primary) hypertension Code(s): I10 - Essential (primary) hypertension Status: Acute Assessment and Plan: * Hold lisinopril due to ANNE MARIE * Hold diltiazem to soft blood pressure * Monitor (7) COPD (chronic obstructive pulmonary disease): Qualifiers: COPD type: unspecified COPD Qualified Code(s): J44.9 - Chronic obstructive pulmonary disease, unspecified Code(s): J44.9 - Chronic obstructi
--- NOTE | 2021-04-29 10:15 | PM.IMCN ---
Assessment and Plan Assessment and plan (1) ANNE MARIE (acute kidney injury): Code(s): N17.9 - Acute kidney failure, unspecified Status: Acute Assessment and Plan: 04/29 creatinine 1.7 up from baseline of 0.8 on 04/27 and 1.0 on 04/28 This is likely due to a combination of volume depletion due to 3rd spacing and self-inflicted fluid restriction and a combination of nonsteroidal anti-inflammatory drug (ketorolac) with lisinopril. Urinary retention may be contributing though bedside bladder scan did not show significant urinary retention. However last urination was 04/28 Postoperative Cipro could be causing acute interstitial nephritis Ultrasound abdomen Urine for urea, creatinine, eosinophils Fluid challenge with 1 L of normal saline as BUN and creatinine are both up at blood pressure is soft Hold lisinopril Hold diltiazem due to soft BP that may impair renal perfusion Avoid nephrotoxic drugs Follow-up lab (2) Acute appendicitis: Qualifiers: Acute appendicitis type: unspecified acute appendicitis type Qualified Code(s): K35.80 - Unspecified acute appendicitis Code(s): K35.80 - Unspecified acute appendicitis Status: Acute Assessment and Plan: His appendectomy was uneventful with a retrocecal appendix His level of postoperative abdominal pain is worrisome but may be related to the extent of his surgery and his morbid obesity Preoperative CT the abdomen showed gallbladder distention with stone in the gallbladder neck concerning for cholecystitis. The patient has known chronic cholelithiasis. Postoperative abscess is unlikely at this point (3) Leukocytosis: Qualifiers: Leukocytosis type: unspecified Qualified Code(s): D72.829 - Elevated white blood cell count, unspecified Code(s): D72.829 - Elevated white blood cell count, unspecified Status: Acute Assessment and Plan: Differential diagnosis includes demargination from appendectomy and postoperative pain and urinary retention, acute cholecystitis, postoperative abscess Obtain ultrasound of abdomen, repeat urinalysis Pending results of abdominal ultrasound consider HIDA scan (4) Cholelithiasis: Qualifiers: Cholelithiasis location: gallbladder Cholecystitis presence: without cholecystitis Biliary obstruction: without biliary obstruction Qualified Code(s): K80.20 - Calculus of gallbladder without cholecystitis without obstruction Code(s): K80.20 - Calculus of gallbladder without cholecystitis without obstruction Status: Acute Assessment and Plan: Chronic with possible cholecystitis Ultrasound of abdomen Pending results and progression of pain will consider HIDA scan (5) Paroxysmal atrial fibrillation: Code(s): I48.0 - Paroxysmal atrial fibrillation Status: Acute Assessment and Plan: Continue sotalol Resume Eliquis as soon as Dr. Drew is comfortable with that postoperatively Hold diltiazem due to soft blood pressure Monitor on telemetry (6) HTN (hypertension): Qualifiers: Hypertension type: unspecified Qualified Code(s): I10 - Essential (primary) hypertension Code(s): I10 - Essential (primary) hypertension Status: Acute Assessment and Plan: Hold lisinopril due to ANNE MARIE Hold diltiazem to soft blood pressure Monitor (7) COPD (chronic obstructive pulmonary disease): Qualifiers: COPD type: unspecified COPD Qualified Code(s): J44.9 - Chronic obstructive pulmonary disease, unspecified Code(s): J44.9 - Chronic obstructive pulmonary disease, unspecified Status: Acute Assessment and Plan: Increase activity Increase hydration Encourage incentive spirometer Q.i.d. nebulized albuterol (will forego ipratropium due to his difficulty with urination) Q.i.d. and p.r.n. flutter valve (8) KELLIE on CPAP: Code(s): G47.33 - Obstructive sleep apnea (adult) (pediatric); Z99.89 - Depend
[2021-04-29 10:53] LABS: Hemoglobin A1C 6.3 % (<5.7)
[2021-04-29] MEDS: ALBUTEROL SULFATE NEB 2.5 MG/0.5 ML INH INHALATION ×3 (11:58→19:46)
[2021-04-29 14:21] LABS: Add Urine Microscopic? YES; Appearance Urine Clear (Clear); Bilirubin Urine Negative (Negative); Blood Urine 1+ (Negative); Color Urine Amber (Yellow); Glucose Urine UA Negative (Negative); Ketones Urine Negative (Negative); Leukocyte Esterase Ur Negative LEU/UL (Negative); Mucus Urine Rare /lpf; Nitrate Urine Negative (Negative); Protein Urine Negative (Negative); Specific Grav Ur 1.028 (1.001-1.035); Squamous Epithelial Cell Urine Few /hpf (Few)
[2021-04-29 14:47] LABS: Creatinine Urine 334.4 mg/dL
[2021-04-29 14:48] LABS: Urea Random Urine 789 MG/DL
[2021-04-29 15:17] LABS: Hematocrit 40.2 % (42.0-52.0); Hemoglobin 13.1 g/dL (14.0-18.0); Mean Corpuscular HGB Conc 32.6 g/dl (32-36); Mean Platelet Volume 12.4 fl (7.4-10.4); Platelet Count Result 193 k/mm3 (150-375); Red Blood Count 4.37 M/mm3 (4.6-6.20); Red Cell Distribution Width 13.9 % (11.5-14.5); White Blood Count 20.6 K/mm3 (4.5-10.0)
[2021-04-29 15:27] LABS: Alanine Aminotransferase 19 U/L (4-50); Albumin Level 3.5 g/dL (3.5-5.1); Alkaline Phosphatase 49 U/L (38-126); Aspartate Amino Transferase 22 U/L (17-59)
[2021-04-29 15:33] LABS: Albumin Level 3.5 g/dL (3.5-5.1); Anion Gap 9 mmol/L (8-16); Blood Urea Nitrogen 41 mg/dL (9-20); Calcium 8.6 mg/dL (8.4-10.2); Carbon Dioxide 27 mmol/L (22-30); Chloride 98 mmol/L (98-107); Estimated CRCL calculation 54 ml/min; Estimated Glomerular Filt Rate 40; Glucose 126 mg/dL (75-110); Phosphorus 3.5 mg/dL (2.5-4.5); Potassium 4.4 mmol/L (3.4-5.0); Sodium 134 mmol/L (137-145)
[2021-04-29 15:51] LABS: Band Neutrophils Percent 18 % (0-6); Lymphocytes Absolute Manual 2.06 K/mm3 (1.1-4.5); Monocytes Absolute Manual 1.44 K/mm3 (0.1-0.90); Monocytes Percent Manual 7 % (3-9); Neutrophils Absolute Manual 17.09 K/mm3 (1.3-6.7); Neutrophils Percent Manual 65 % (46-73); Platelet Estimate Adequate (Adequate); Total Cells Counted 100
[2021-04-29 15:55] LABS: Eosinophil Urine None Seen % (None Seen)
[2021-04-29] MEDS: SODIUM CHLORIDE 0.9% IV 1,000 ML 999 ML IV CONT (16:57)
[2021-04-29] MEDS: PRAVASTATIN SODIUM 20 MG TABLET 40 MG PO (21:22)
[2021-04-30] VITALS (18 sets, daily range): BP systolic 111–124; BP diastolic 56–73; PULSE 65–101; RESP 16–24; TEMP 36.1–36.3; O2SAT 95–96
[2021-04-30] MEDS: HYDROcodone/acetaminophen (*CRX) 10-325 MG TABLET 1 TAB PO ×5 (01:26→20:49)
[2021-04-30 05:18] LABS: Hematocrit 37.4 % (42.0-52.0); Hemoglobin 11.9 g/dL (14.0-18.0); Mean Corpuscular HGB Conc 31.8 g/dl (32-36); Mean Corpuscular Hemoglobin 29.7 pg (26-34); Mean Corpuscular Volume 93.3 fl (80-100); Mean Platelet Volume 12.6 fl (7.4-10.4); Platelet Count Result 181 k/mm3 (150-375); Red Blood Count 4.01 M/mm3 (4.6-6.20); Red Cell Distribution Width 13.8 % (11.5-14.5); White Blood Count 18.5 K/mm3 (4.5-10.0)
[2021-04-30] MEDS: SODIUM CHLORIDE 0.9% IV 1,000 ML 150 ML IV CONT (05:18)
[2021-04-30 05:40] LABS: Alanine Aminotransferase 17 U/L (4-50); Albumin Level 3.1 g/dL (3.5-5.1); Alkaline Phosphatase 52 U/L (38-126); Anion Gap 7 mmol/L (8-16); Aspartate Amino Transferase 28 U/L (17-59); Bilirubin,Total 0.8 mg/dL (0.2-1.3); Blood Urea Nitrogen 39 mg/dL (9-20); Calcium 7.8 mg/dL (8.4-10.2); Carbon Dioxide 24 mmol/L (22-30); Chloride 101 mmol/L (98-107); Estimated CRCL calculation 70 ml/min; Estimated Glomerular Filt Rate 55; Glucose 119 mg/dL (75-110); Magnesium 2.1 mg/dL (1.6-2.3); Potassium 4.3 mmol/L (3.4-5.0); Sodium 132 mmol/L (137-145)
[2021-04-30 06:18] LABS: Digoxin < 0.4 ng/mL (0.8-2.0)
[2021-04-30] MEDS: CIPROFLOXACIN 400 MG/D5W 200ML 200 ML 200 MG IVPB ×2 (08:06→20:50)
[2021-04-30] MEDS: SOTALOL HCL 80 MG TABLET PO ×2 (08:07→16:04)
[2021-04-30] MEDS: DOCUSATE SODIUM 100 MG CAPSULE PO ×2 (08:07→20:52)
[2021-04-30] MEDS: ALBUTEROL SULFATE NEB 2.5 MG/0.5 ML INH INHALATION ×2 (08:39→21:07)
[2021-04-30] MEDS: IPRATROPIUM BR 0.02% INH SOLN 0.5 MG/2.5 ML VIAL INHALATION ×2 (08:39→21:07)
--- NOTE | 2021-04-30 10:22 | PM.PNGS ---
Progress Note: A&P Assessment and Plan (1) Acute appendicitis: Qualifiers: Acute appendicitis type: unspecified acute appendicitis type Qualified Code(s): K35.80 - Unspecified acute appendicitis Code(s): K35.80 - Unspecified acute appendicitis Status: Acute Assessment and Plan: s/p lap appy, still c significant R sided abdominal pain, will get CT for further eval (2) Cholelithiasis: Qualifiers: Cholelithiasis location: gallbladder Cholecystitis presence: without cholecystitis Biliary obstruction: without biliary obstruction Qualified Code(s): K80.20 - Calculus of gallbladder without cholecystitis without obstruction Code(s): K80.20 - Calculus of gallbladder without cholecystitis without obstruction Status: Acute Assessment and Plan: ? reactive inflammation of GB as appendix was in R upper abdomen, will get CT today, would need perc cholecystostomy if intervention required, cont abx, leukocytosis sl improved Subjective Subjective Date/Time Seen: 04/30/21 10:22 feels a little better, still c/o RUQ abdominal pain, SOB slightly improved Review of Systems Review of Systems: All systems reviewed & are unremarkable except as noted in HPI and below Exam Const: General: cooperative, acute distress mild and ill appearing Nutritional Appearance: obese Resp: Effort & Inspection: decreased respiratory effort Auscultation: diminished lung sounds Cardio: Rate: regular rate Rhythm: regular rhythm GI: Inspection: normal to inspection GI Palp: Yes Soft to palpation and Yes Tenderness to palpation present (GI) Skin: General skin exam: normal color and no rashes or lesions noted Neuro: General: patient oriented x3 Objective Data Vital Signs Vital Signs: Vital Signs - 24 hr 04/29/21 11:59 04/29/21 12:00 04/29/21 14:00 Temperature 36.4 C Pulse Rate 76 73 66 Respiratory Rate 20 18 Blood Pressure 102/55 L Pulse Oximetry 94 04/29/21 16:00 04/29/21 16:30 04/29/21 16:47 Temperature Pulse Rate 62 80 85 Respiratory Rate 20 20 Blood Pressure Pulse Oximetry 04/29/21 16:55 04/29/21 17:02 04/29/21 19:48 Temperature Pulse Rate 68 68 69 Respiratory Rate 20 20 Blood Pressure 100/48 L Pulse Oximetry 96 04/29/21 19:49 04/29/21 19:58 04/29/21 20:00 Temperature Pulse Rate 68 69 Respiratory Rate 20 Blood Pressure Pulse Oximetry 90 04/29/21 22:00 04/30/21 00:00 04/30/21 01:35 Temperature 36.6 C Pulse Rate 70 74 86 Respiratory Rate 16 20 Blood Pressure 108/63 Pulse Oximetry 94 95 04/30/21 04:00 04/30/21 06:00 04/30/21 08:07 Temperature 36.2 C L Pulse Rate 78 79 79 Respiratory Rate 16 Blood Pressure 111/56 L Pulse Oximetry 95 04/30/21 08:35 04/30/21 08:45 Temperature Pulse Rate 72 68 Respiratory Rate 20 20 Blood Pressure Pulse Oximetry Intake/Output Intake/Output: Intake & Output 04/27/21 04/28/21 04/29/21 04/30/21 23:59 23:59 23:59 23:59 Intake Total 2610 1670 3600 1480 Output Total 650 600 400 300 Balance 1960 1070 3200 1180 Meds/Results Medications: Active Medications Generic Name Dose Route Start Last Admin Trade Name Freq PRN Reason Stop Dose Admin Hydrocodone Bitart/Acetaminophen 1 tab 04/29/21 07:04 04/30/21 09:59 Hydrocodone/Acetaminophen (*Crx) 10-325 Mg Tablet PO 1 tab Q4H PRN Administration Pain Rated 7-10 Albuterol 1 puff 04/27/21 11:39 Albuterol Sulfate (*Sp) Aerosol 1 Puff INHALATION TID PRN Shortness Of Breath Albuterol 2.5 mg 04/29/21 12:00 04/30/21 08:39 Albuterol Sulfate Neb 2.5 Mg/0.5 Ml Inh INHALATION 2.5 mg QIDRT KEILY Administration Digoxin 125 mcg 04/27/21 11:45 04/29/21 07:57 Digoxin Tab 125 Mcg Tablet PO 125 mcg DAILY KEILY Administration Diltiazem HCl 240 mg 04/27/21 21:00 04/28/21 21:08 Diltiazem Hcl Cd 240 Mg Cap.Er.24h PO 240 mg HS KEILY Administration Docusate Sodi
--- NOTE | 2021-04-30 13:15 | PCRCNOTE ---
Window of time for administration has passed. See next scheduled administration.
--- NOTE | 2021-04-30 15:06 | P.PNIM_ITS ---
Progress Note: A&P Assessment and Plan (1) ANNE MARIE (acute kidney injury): Code(s): N17.9 - Acute kidney failure, unspecified Status: Acute Assessment and Plan: Creat is 1.[address] of abdomen today * Hold lisinopril * Hold diltiazem due to soft BP that may impair renal perfusion * Avoid nephrotoxic drugs * Follow-up lab (2) Acute appendicitis: Qualifiers: Acute appendicitis type: unspecified acute appendicitis type Qualified Code(s): K35.80 - Unspecified acute appendicitis Code(s): K35.80 - Unspecified acute appendicitis Status: Acute Assessment and Plan: * His appendectomy was uneventful with a retrocecal appendix * His level of postoperative abdominal pain is worrisome but may be related to the extent of his surgery and his morbid obesity * Preoperative CT the abdomen showed gallbladder distention with stone in the gallbladder neck concerning for cholecystitis and ascites in R side of abdomen . * Sp CT abdomen today (3) Leukocytosis: Qualifiers: Leukocytosis type: unspecified Qualified Code(s): D72.829 - Elevated white blood cell count, unspecified Code(s): D72.829 - Elevated white blood cell count, unspecified Status: Acute Assessment and Plan: * Differential diagnosis includes demargination from appendectomy and postoperative pain and urinary retention, acute cholecystitis, postoperative abscess * US Abdo and ct abdomen (4) Cholelithiasis: Qualifiers: Cholelithiasis location: gallbladder Cholecystitis presence: without cholecystitis Biliary obstruction: without biliary obstruction Qualified Code (s): K80.20 - Calculus of gallbladder without cholecystitis without obstruction Code(s): K80.20 - Calculus of gallbladder without cholecystitis without obstruction Status: Acute Assessment and Plan: * Chronic with possible cholecystitis * Ultrasound of abdomen and ct scan (5) Paroxysmal atrial fibrillation: Code(s): I48.0 - Paroxysmal atrial fibrillation Status: Acute Assessment and Plan: * Continue sotalol * Resume Eliquis as soon as Dr. Drew is comfortable with that postoperatively * Hold diltiazem due to soft blood pressure * (6) HTN (hypertension): Qualifiers: Hypertension type: unspecified Qualified Code(s): I10 - Essential (primary) hypertension Code(s): I10 - Essential (primary) hypertension Status: Acute Assessment and Plan: * Hold lisinopril due to ANNE MARIE * Hold diltiazem to soft blood pressure * Monitor (7) COPD (chronic obstructive pulmonary disease): Qualifiers: COPD type: unspecified COPD Qualified Code(s): J44.9 - Chronic obstructive pulmonary disease, unspecified Code(s): J44.9 - Chronic obstructive pulmonary disease, unspecified Status: Acute Assessment and Plan: * Increase activity * Increase hydration * Encourage incentive spirometer * BT, steroids and tessalon perles (8) KELLIE on CPAP: Code(s): G47.33 - Obstructive sleep apnea (adult) (pediatric); Z99.89 - Dependence on other enabling machines and devices Status: Acute Assessment and Plan: * Auto titrating or home CPAP at night (9) Morbid obesity: Code(s): E66.01 - Morbid (severe) obesity due to excess calories Status: Acute Assessment and Plan: * Encourage mobility Subjective Date/time seen: 04/30/21 15:06 Review of Systems Review of Systems: All systems reviewed & are unremarkabl
--- NOTE | 2021-04-30 15:06 | PM.IMPN ---
Progress Note: A&P Assessment and Plan (1) ANNE MARIE (acute kidney injury): Code(s): N17.9 - Acute kidney failure, unspecified Status: Acute Assessment and Plan: Creat is 1.[address] of abdomen today Hold lisinopril Hold diltiazem due to soft BP that may impair renal perfusion Avoid nephrotoxic drugs Follow-up lab (2) Acute appendicitis: Qualifiers: Acute appendicitis type: unspecified acute appendicitis type Qualified Code(s): K35.80 - Unspecified acute appendicitis Code(s): K35.80 - Unspecified acute appendicitis Status: Acute Assessment and Plan: His appendectomy was uneventful with a retrocecal appendix His level of postoperative abdominal pain is worrisome but may be related to the extent of his surgery and his morbid obesity Preoperative CT the abdomen showed gallbladder distention with stone in the gallbladder neck concerning for cholecystitis and ascites in R side of abdomen . Sp CT abdomen today (3) Leukocytosis: Qualifiers: Leukocytosis type: unspecified Qualified Code(s): D72.829 - Elevated white blood cell count, unspecified Code(s): D72.829 - Elevated white blood cell count, unspecified Status: Acute Assessment and Plan: Differential diagnosis includes demargination from appendectomy and postoperative pain and urinary retention, acute cholecystitis, postoperative abscess US Abdo and ct abdomen (4) Cholelithiasis: Qualifiers: Cholelithiasis location: gallbladder Cholecystitis presence: without cholecystitis Biliary obstruction: without biliary obstruction Qualified Code(s): K80.20 - Calculus of gallbladder without cholecystitis without obstruction Code(s): K80.20 - Calculus of gallbladder without cholecystitis without obstruction Status: Acute Assessment and Plan: Chronic with possible cholecystitis Ultrasound of abdomen and ct scan (5) Paroxysmal atrial fibrillation: Code(s): I48.0 - Paroxysmal atrial fibrillation Status: Acute Assessment and Plan: Continue sotalol Resume Eliquis as soon as Dr. Drew is comfortable with that postoperatively Hold diltiazem due to soft blood pressure (6) HTN (hypertension): Qualifiers: Hypertension type: unspecified Qualified Code(s): I10 - Essential (primary) hypertension Code(s): I10 - Essential (primary) hypertension Status: Acute Assessment and Plan: Hold lisinopril due to ANNE MARIE Hold diltiazem to soft blood pressure Monitor (7) COPD (chronic obstructive pulmonary disease): Qualifiers: COPD type: unspecified COPD Qualified Code(s): J44.9 - Chronic obstructive pulmonary disease, unspecified Code(s): J44.9 - Chronic obstructive pulmonary disease, unspecified Status: Acute Assessment and Plan: Increase activity Increase hydration Encourage incentive spirometer BT, steroids and tessalon perles (8) KELLIE on CPAP: Code(s): G47.33 - Obstructive sleep apnea (adult) (pediatric); Z99.89 - Dependence on other enabling machines and devices Status: Acute Assessment and Plan: Auto titrating or home CPAP at night (9) Morbid obesity: Code(s): E66.01 - Morbid (severe) obesity due to excess calories Status: Acute Assessment and Plan: Encourage mobility Subjective Date/time seen: 04/30/21 15:06 Review of Systems Review of Systems: All systems reviewed & are unremarkable except as noted in HPI and below Exam Narrative: Exam Narrative: CHEST: Clear to auscultation. Decreased breath sounds at bases. HEART: NL S1/S2, regular, no murmur ABDOMEN: TTP over RUQ EXTREMITIES: No cyanosis, edema, or clubbing NEUROLOGIC: CN intact and symmetric to inspection. MUSCULOSKELETAL: Tone and strength symmetric. PSYCH: Alert. Oriented to person, place, and time. Objective Data Vital Signs Vital Signs: Vital Signs - 24 hr
[2021-04-30] MEDS: ONDANSETRON INJ 4 MG/2 ML VIAL IV PUSH (16:01)
[2021-04-30] MEDS: BENZONATATE 100 MG CAPSULE PO (16:04)
[2021-04-30] MEDS: APIXABAN 5 MG TABLET PO (16:04)
[2021-04-30] MEDS: PRAVASTATIN SODIUM 20 MG TABLET 40 MG PO (20:53)
[2021-05-01] VITALS (20 sets, daily range): BP systolic 102–124; BP diastolic 55–73; PULSE 86–114; RESP 16–24; TEMP 36–37; O2SAT 91–96
[2021-05-01] MEDS: HYDROcodone/acetaminophen (*CRX) 10-325 MG TABLET 1 TAB PO ×4 (01:28→21:34)
[2021-05-01] MEDS: HYDROmorphone HCL INJ (*CRX) 1 MG/ML SYR IV PUSH (02:42)
[2021-05-01] MEDS: ALBUTEROL SULFATE NEB 2.5 MG/0.5 ML INH INHALATION ×4 (02:42→22:03)
[2021-05-01] MEDS: IPRATROPIUM BR 0.02% INH SOLN 0.5 MG/2.5 ML VIAL INHALATION ×4 (02:43→22:03)
[2021-05-01 05:01] LABS: Hematocrit 37.8 % (42.0-52.0); Hemoglobin 12.3 g/dL (14.0-18.0); Mean Corpuscular HGB Conc 32.5 g/dl (32-36); Mean Corpuscular Hemoglobin 29.4 pg (26-34); Mean Corpuscular Volume 90.2 fl (80-100); Mean Platelet Volume 12.4 fl (7.4-10.4); Platelet Count Result 230 k/mm3 (150-375); Red Blood Count 4.19 M/mm3 (4.6-6.20); Red Cell Distribution Width 13.8 % (11.5-14.5); White Blood Count 22.8 K/mm3 (4.5-10.0)
[2021-05-01 05:14] LABS: Anion Gap 8 mmol/L (8-16); Blood Urea Nitrogen 21 mg/dL (9-20); Calcium 7.9 mg/dL (8.4-10.2); Carbon Dioxide 26 mmol/L (22-30); Chloride 100 mmol/L (98-107); Estimated CRCL calculation 99 ml/min; Estimated Glomerular Filt Rate > 60; Glucose 135 mg/dL (75-110); Potassium 4.2 mmol/L (3.4-5.0); Sodium 134 mmol/L (137-145)
--- NOTE | 2021-05-01 11:19 | P.PNIM_ITS ---
Progress Note: A&P Assessment and Plan (1) ANNE MARIE (acute kidney injury): Code(s): N17.9 - Acute kidney failure, unspecified Status: Resolved Assessment and Plan: Creat is o.[address] of abdomen today * Hold lisinopril * Hold diltiazem due to soft BP that may impair renal perfusion * Avoid nephrotoxic drugs * Follow-up lab (2) Acute appendicitis: Qualifiers: Acute appendicitis type: unspecified acute appendicitis type Qualified Code(s): K35.80 - Unspecified acute appendicitis Code(s): K35.80 - Unspecified acute appendicitis Status: Acute Assessment and Plan: * His appendectomy was uneventful with a retrocecal appendix * His level of postoperative abdominal pain is worrisome but may be related to the extent of his surgery and his morbid obesity * Preoperative CT the abdomen showed gallbladder distention with stone in the gallbladder neck concerning for cholecystitis and ascites in R side of abdomen. * Sp CT abdomen yesterday * Abdomen is more distended today (3) Leukocytosis: Qualifiers: Leukocytosis type: unspecified Qualified Code(s): D72.829 - Elevated white blood cell count, unspecified Code(s): D72.829 - Elevated white blood cell count, unspecified Status: Acute Assessment and Plan: * Sp US Abdo and ct abdomen (4) Cholelithiasis: Qualifiers: Cholelithiasis location: gallbladder Cholecystitis presence: without cholecystitis Biliary obstruction: without biliary obstruction Qualified Code(s): K80.20 - Calculus of gallbladder without cholecystitis without obstruction Code(s): K80.20 - Calculus of gallbladder without cholecystitis without obstruction Status: Acute Assessment and Plan: * Chronic with possible cholecystitis * Sp Ultrasound of abdomen and ct scan (5) Paroxysmal atrial fibrillation: Code(s): I48.0 - Paroxysmal atrial fibrillation Status: Acute Assessment and Plan: * Continue sotalol * Pt started on eliquis (6) HTN (hypertension): Qualifiers: Hypertension type: unspecified Qualified Code(s): I10 - Essential (primary) hypertension Code(s): I10 - Essential (primary) hypertension Status: Acute Assessment and Plan: * Hold lisinopril due to ANNE MARIE * Hold diltiazem to soft blood pressure * Monitor BP (7) COPD (chronic obstructive pulmonary disease): Qualifiers: COPD type: unspecified COPD Qualified Code(s): J44.9 - Chronic obstructive pulmonary disease, unspecified Code(s): J44.9 - Chronic obstructive pulmonary disease, unspecified Status: Acute Assessment and Plan: * Increase activity * Increase hydration * Encourage incentive spirometer * BT, steroids and tessalon perles * CT PE ordered today (8) KELLIE on CPAP: Code(s): G47.33 - Obstructive sleep apnea (adult) (pediatric); Z99.89 - Dependence on other enabling machines and devices Status: Acute Assessment and Plan: * Auto titrating or home CPAP at night (9) Morbid obesity: Code(s): E66.01 - Morbid (severe) obesity due to excess calories Status: Acute Assessment and Plan: * Encourage mobility Subjective Date/time seen: 05/01/21 11:19 Review of Systems Review of Systems: All systems reviewed & are unremarkable except as noted in HPI and below Exam Narrative: Exam Narrative: Generally: Pt is very anxious CHEST: Clear to auscultation.
--- NOTE | 2021-05-01 11:19 | PM.IMPN ---
Progress Note: A&P Assessment and Plan (1) ANNE MARIE (acute kidney injury): Code(s): N17.9 - Acute kidney failure, unspecified Status: Resolved Assessment and Plan: Creat is o.[address] of abdomen today Hold lisinopril Hold diltiazem due to soft BP that may impair renal perfusion Avoid nephrotoxic drugs Follow-up lab (2) Acute appendicitis: Qualifiers: Acute appendicitis type: unspecified acute appendicitis type Qualified Code(s): K35.80 - Unspecified acute appendicitis Code(s): K35.80 - Unspecified acute appendicitis Status: Acute Assessment and Plan: His appendectomy was uneventful with a retrocecal appendix His level of postoperative abdominal pain is worrisome but may be related to the extent of his surgery and his morbid obesity Preoperative CT the abdomen showed gallbladder distention with stone in the gallbladder neck concerning for cholecystitis and ascites in R side of abdomen. Sp CT abdomen yesterday Abdomen is more distended today (3) Leukocytosis: Qualifiers: Leukocytosis type: unspecified Qualified Code(s): D72.829 - Elevated white blood cell count, unspecified Code(s): D72.829 - Elevated white blood cell count, unspecified Status: Acute Assessment and Plan: Sp US Abdo and ct abdomen (4) Cholelithiasis: Qualifiers: Cholelithiasis location: gallbladder Cholecystitis presence: without cholecystitis Biliary obstruction: without biliary obstruction Qualified Code(s): K80.20 - Calculus of gallbladder without cholecystitis without obstruction Code(s): K80.20 - Calculus of gallbladder without cholecystitis without obstruction Status: Acute Assessment and Plan: Chronic with possible cholecystitis Sp Ultrasound of abdomen and ct scan (5) Paroxysmal atrial fibrillation: Code(s): I48.0 - Paroxysmal atrial fibrillation Status: Acute Assessment and Plan: Continue sotalol Pt started on eliquis (6) HTN (hypertension): Qualifiers: Hypertension type: unspecified Qualified Code(s): I10 - Essential (primary) hypertension Code(s): I10 - Essential (primary) hypertension Status: Acute Assessment and Plan: Hold lisinopril due to ANNE MARIE Hold diltiazem to soft blood pressure Monitor BP (7) COPD (chronic obstructive pulmonary disease): Qualifiers: COPD type: unspecified COPD Qualified Code(s): J44.9 - Chronic obstructive pulmonary disease, unspecified Code(s): J44.9 - Chronic obstructive pulmonary disease, unspecified Status: Acute Assessment and Plan: Increase activity Increase hydration Encourage incentive spirometer BT, steroids and tessalon perles CT PE ordered today (8) KELLIE on CPAP: Code(s): G47.33 - Obstructive sleep apnea (adult) (pediatric); Z99.89 - Dependence on other enabling machines and devices Status: Acute Assessment and Plan: Auto titrating or home CPAP at night (9) Morbid obesity: Code(s): E66.01 - Morbid (severe) obesity due to excess calories Status: Acute Assessment and Plan: Encourage mobility Subjective Date/time seen: 05/01/21 11:19 Review of Systems Review of Systems: All systems reviewed & are unremarkable except as noted in HPI and below Exam Narrative: Exam Narrative: Generally: Pt is very anxious CHEST: Clear to auscultation. HEART: NL S1/S2, regular, no murmur ABDOMEN: Distended, with ascites EXTREMITIES: No cyanosis, edema, or clubbing NEUROLOGIC: CN intact and symmetric to inspection. MUSCULOSKELETAL: Tone and strength symmetric. PSYCH: Alert. Oriented to person, place, and time. Objective Data Vital Signs Vital Signs: Vital Signs - 24 hr 04/30/21 12:00 04/30/21 14:00 04/30/21 16:00 Temperature 36.1 C L Pulse Rate 101 H 90 97 Respiratory Rate 22 H Blood Pressure 124/73 Pulse Oximetry 95
--- NOTE | 2021-05-01 12:04 | PM.PNGS ---
Progress Note: A&P Assessment and Plan (1) Acute appendicitis: Qualifiers: Acute appendicitis type: unspecified acute appendicitis type Qualified Code(s): K35.80 - Unspecified acute appendicitis Code(s): K35.80 - Unspecified acute appendicitis Status: Acute Assessment and Plan: POD#4 hand-assisted lap appy. Still having right-sided abd pain and persistent leukocytosis. CT scan abd/pelvis yesterday was unremarkable with small amount of ascites in right abdomen and cholelithiasis. Will continue routine post-op care and further work-up for his leukocytosis and abd pain (see plan below). If no evidence of DVT/PE, then encouraged increased ambulation as tolerated with his breathing and OOB for meals. Pathology pending. (2) Cholelithiasis: Qualifiers: Cholelithiasis location: gallbladder Cholecystitis presence: without cholecystitis Biliary obstruction: without biliary obstruction Qualified Code(s): K80.20 - Calculus of gallbladder without cholecystitis without obstruction Code(s): K80.20 - Calculus of gallbladder without cholecystitis without obstruction Status: Acute Assessment and Plan: Persistent leukocytosis with some inflammation of the gallbladder seen on ultrasound. He is still complaining of right-sided abdominal pain. HIDA scan pending. If intervention is needed, we would proceed with a percutaneous cholecystostomy tube placement by IR. Continue broad-spectrum IV abx. Will make him NPO until HIDA scan has resulted and we know if intervention is needed today. (3) Leukocytosis: Qualifiers: Leukocytosis type: unspecified Qualified Code(s): D72.829 - Elevated white blood cell count, unspecified Code(s): D72.829 - Elevated white blood cell count, unspecified Status: Acute Assessment and Plan: WBC up to 22,000 today. Afebrile. Still having right-sided abdominal pain. HIDA scan ordered and pending. See plan above. CTA chest also ordered and will evaluate for PE or pulmonary causes. Will broaden IV antibiotics and add IV Flagyl. (4) Dyspnea: Code(s): R06.00 - Dyspnea, unspecified Status: Acute Assessment and Plan: Shortness of breath and tachypneic. DDx include COPD exacerbation vs PE vs volume overload vs pneumonia. CTA chest and miguel a. lower ext venous dopplers pending. May need to consider Pulmonology conuslt. Additional Plan I have discussed the patient's case and plan of care with Dr. Luis. Subjective Subjective Date/Time Seen: 05/01/21 12:04 Post Op day: 4 (WESLEY appendectomy) Patient reports: still having pain, tolerating a regular diet, flatus, bowel movement, nausea and afebrile Interval history: Patient seen this morning feeling more short of breath. He reports still having right sided abdominal pain that is unchanged from yesterday. Last BM yesterday. No vomiting, but reports feeling nauseated. No other complaints at this time. Patient has only been out of bed a few times since surgery to get to the bathroom. Reports that his abdomen feels bloated and swollen. Review of Systems Review of Systems: All systems reviewed & are unremarkable except as noted in HPI and below Exam Const: General: alert, awake, acute distress mild and uncomfortable Nutritional Appearance: obese Orientation/consciousness: patient oriented x3 Resp: Effort & Inspection: labored and tachypneic Auscultation: crackles on the left in the lower lung silverio, wheezes expiratory wheezes and throughout and diminished lung sounds bilateral in the lower lung silverio Cardio: Rate: regular rate Rhythm: regular rhythm GI: Inspection: Abdominal wall edema and distended GI Palp: Yes Soft to palpation and Yes Tenderness to palpation present (GI) (incisional) Auscultation: normal bowel sounds Other: Larger midline incision with clint intact and serosanguineous drainage coming from near the umbilicus. Trochar incisions with bandaid dressings, clean and dry. Sk
[2021-05-01] MEDS: SOTALOL HCL 80 MG TABLET PO ×2 (13:54→16:27)
[2021-05-01] MEDS: CIPROFLOXACIN 400 MG/D5W 200ML 200 ML 200 MG IVPB ×2 (13:55→21:33)
[2021-05-01] MEDS: predniSONE 20 MG TABLET PO (13:55)
[2021-05-01] MEDS: APIXABAN 5 MG TABLET PO ×2 (13:55→16:27)
[2021-05-01] MEDS: BENZONATATE 100 MG CAPSULE PO ×2 (13:56→16:27)
[2021-05-01] MEDS: DOCUSATE SODIUM 100 MG CAPSULE PO ×2 (13:56→21:36)
[2021-05-01] MEDS: metroNIDAZOLE 500 MG/ISO 100ML 500 MG/100 ML BAG 100 MG IVPB ×2 (16:26→22:29)
[2021-05-01] MEDS: ACETAMINOPHEN 325 MG TABLET 650 MG PO (18:46)
[2021-05-01] MEDS: PRAVASTATIN SODIUM 20 MG TABLET 40 MG PO (21:35)
[2021-05-02] VITALS (20 sets, daily range): BP systolic 115–137; BP diastolic 69–88; PULSE 78–98; RESP 18–20; TEMP 36–36.6; O2SAT 93–97
[2021-05-02] MEDS: ALBUTEROL SULFATE NEB 2.5 MG/0.5 ML INH INHALATION ×4 (03:58→20:08)
[2021-05-02] MEDS: IPRATROPIUM BR 0.02% INH SOLN 0.5 MG/2.5 ML VIAL INHALATION ×4 (03:59→20:08)
[2021-05-02 05:17] LABS: Hemoglobin 12.9 g/dL (14.0-18.0); Mean Corpuscular HGB Conc 33.1 g/dl (32-36); Mean Corpuscular Hemoglobin 29.7 pg (26-34); Mean Corpuscular Volume 89.7 fl (80-100); Mean Platelet Volume 12.1 fl (7.4-10.4); Platelet Count Result 264 k/mm3 (150-375); Red Blood Count 4.35 M/mm3 (4.6-6.20)
[2021-05-02 05:37] LABS: Anion Gap 8 mmol/L (8-16); Blood Urea Nitrogen 22 mg/dL (9-20); Calcium 8.7 mg/dL (8.4-10.2); Carbon Dioxide 28 mmol/L (22-30); Chloride 100 mmol/L (98-107); Estimated CRCL calculation 89 ml/min; Estimated Glomerular Filt Rate > 60; Glucose 139 mg/dL (75-110); Potassium 4.4 mmol/L (3.4-5.0); Sodium 136 mmol/L (137-145)
[2021-05-02] MEDS: ONDANSETRON INJ 4 MG/2 ML VIAL IV PUSH (06:05)
[2021-05-02] MEDS: metroNIDAZOLE 500 MG/ISO 100ML 500 MG/100 ML BAG 100 MG IVPB ×3 (06:06→22:06)
--- NOTE | 2021-05-02 07:47 | PC.NURSE ---
several attempts made by this nurse and Ellen Rivera to place an NG tube were unsuccessful, Dr Luis is aware.
[2021-05-02] MEDS: PROMETHAZINE HCL 25 MG/ML AMPUL 12.5 MG IV PUSH (07:54)
[2021-05-02] MEDS: APIXABAN 5 MG TABLET PO (08:50)
[2021-05-02] MEDS: predniSONE 20 MG TABLET PO (08:50)
[2021-05-02] MEDS: BENZONATATE 100 MG CAPSULE PO ×3 (08:50→16:52)
[2021-05-02] MEDS: DOCUSATE SODIUM 100 MG CAPSULE PO ×2 (08:50→20:42)
[2021-05-02] MEDS: SOTALOL HCL 80 MG TABLET PO ×2 (08:50→16:54)
[2021-05-02] MEDS: CIPROFLOXACIN 400 MG/D5W 200ML 200 ML 200 MG IVPB ×2 (08:53→20:41)
--- NOTE | 2021-05-02 10:38 | P.PNIM_ITS ---
Progress Note: A&P Assessment and Plan (1) ANNE MARIE (acute kidney injury): Code(s): N17.9 - Acute kidney failure, unspecified Status: Resolved Assessment and Plan: Creat is [address] of abdomen today * Hold lisinopril * Hold diltiazem due to soft BP that may impair renal perfusion * Avoid nephrotoxic drugs * Follow-up lab (2) Acute appendicitis: Qualifiers: Acute appendicitis type: unspecified acute appendicitis type Qualified Code(s): K35.80 - Unspecified acute appendicitis Code(s): K35.80 - Unspecified acute appendicitis Status: Acute Assessment and Plan: * His appendectomy was uneventful with a retrocecal appendix * His level of postoperative abdominal pain is worrisome but may be related to the extent of his surgery and his morbid obesity * Preoperative CT the abdomen showed gallbladder distention with stone in the gallbladder neck concerning for cholecystitis and ascites in R side of abdomen. * Sp CT abdomen * Abdomen is grossly distended (3) Leukocytosis: Qualifiers: Leukocytosis type: unspecified Qualified Code(s): D72.829 - Elevated white blood cell count, unspecified Code(s): D72.829 - Elevated white blood cell count, unspecified Status: Acute Assessment and Plan: Pt is on IV ciprofloxacin and IV flagyl order BC as WCC remain high * Sp ct chest and ct abdomen (4) Cholelithiasis: Qualifiers: Cholelithiasis location: gallbladder Cholecystitis presence: without cholecystitis Biliary obstruction: without biliary obstruction Qualified Code(s): K80.20 - Calculus of gallbladder without cholecystitis without obstruction Code(s): K80.20 - Calculus of gallbladder without cholecystitis without obstruction Status: Acute Assessment and Plan: * Chronic with possible cholecystitis (5) Paroxysmal atrial fibrillation: Code(s): I48.0 - Paroxysmal atrial fibrillation Status: Acute Assessment and Plan: * Continue sotalol * Pt started on eliquis (6) HTN (hypertension): Qualifiers: Hypertension type: unspecified Qualified Code(s): I10 - Essential (primary) hypertension Code(s): I10 - Essential (primary) hypertension Status: Acute Assessment and Plan: * continue HTN medications * Monitor BP (7) COPD (chronic obstructive pulmonary disease): Qualifiers: COPD type: unspecified COPD Qualified Code(s): J44.9 - Chronic obstructive pulmonary disease, unspecified Code(s): J44.9 - Chronic obstructive pulmonary disease, unspecified Status: Acute Assessment and Plan: * Increase activity * Increase hydration * Encourage incentive spirometer * BT, oral steroids and tessalon perles (8) KELLIE on CPAP: Code(s): G47.33 - Obstructive sleep apnea (adult) (pediatric); Z99.89 - Dependence on other enabling machines and devices Status: Acute Assessment and Plan: * Auto titrating or home CPAP at night (9) Morbid obesity: Code(s): E66.01 - Morbid (severe) obesity due to excess calories Status: Acute Assessment and Plan: * Encourage mobility (10) Ascites: Code(s): R18.8 - Other ascites Status: Acute Assessment and Plan: Post op ascites continue to watch. Subjective Date/time seen: 05/02/21 10:38 Interval history: Dale Barros is a 70 year old male who was admitted by Dr. Luis on April 27 for abdominal pain and acute appendicitis. Pt is post
--- NOTE | 2021-05-02 10:38 | PM.IMPN ---
Progress Note: A&P Assessment and Plan (1) ANNE MARIE (acute kidney injury): Code(s): N17.9 - Acute kidney failure, unspecified Status: Resolved Assessment and Plan: Creat is [address] of abdomen today Hold lisinopril Hold diltiazem due to soft BP that may impair renal perfusion Avoid nephrotoxic drugs Follow-up lab (2) Acute appendicitis: Qualifiers: Acute appendicitis type: unspecified acute appendicitis type Qualified Code(s): K35.80 - Unspecified acute appendicitis Code(s): K35.80 - Unspecified acute appendicitis Status: Acute Assessment and Plan: His appendectomy was uneventful with a retrocecal appendix His level of postoperative abdominal pain is worrisome but may be related to the extent of his surgery and his morbid obesity Preoperative CT the abdomen showed gallbladder distention with stone in the gallbladder neck concerning for cholecystitis and ascites in R side of abdomen. Sp CT abdomen Abdomen is grossly distended (3) Leukocytosis: Qualifiers: Leukocytosis type: unspecified Qualified Code(s): D72.829 - Elevated white blood cell count, unspecified Code(s): D72.829 - Elevated white blood cell count, unspecified Status: Acute Assessment and Plan: Pt is on IV ciprofloxacin and IV flagyl order BC as WCC remain high Sp ct chest and ct abdomen (4) Cholelithiasis: Qualifiers: Cholelithiasis location: gallbladder Cholecystitis presence: without cholecystitis Biliary obstruction: without biliary obstruction Qualified Code(s): K80.20 - Calculus of gallbladder without cholecystitis without obstruction Code(s): K80.20 - Calculus of gallbladder without cholecystitis without obstruction Status: Acute Assessment and Plan: Chronic with possible cholecystitis (5) Paroxysmal atrial fibrillation: Code(s): I48.0 - Paroxysmal atrial fibrillation Status: Acute Assessment and Plan: Continue sotalol Pt started on eliquis (6) HTN (hypertension): Qualifiers: Hypertension type: unspecified Qualified Code(s): I10 - Essential (primary) hypertension Code(s): I10 - Essential (primary) hypertension Status: Acute Assessment and Plan: continue HTN medications Monitor BP (7) COPD (chronic obstructive pulmonary disease): Qualifiers: COPD type: unspecified COPD Qualified Code(s): J44.9 - Chronic obstructive pulmonary disease, unspecified Code(s): J44.9 - Chronic obstructive pulmonary disease, unspecified Status: Acute Assessment and Plan: Increase activity Increase hydration Encourage incentive spirometer BT, oral steroids and tessalon perles (8) KELLIE on CPAP: Code(s): G47.33 - Obstructive sleep apnea (adult) (pediatric); Z99.89 - Dependence on other enabling machines and devices Status: Acute Assessment and Plan: Auto titrating or home CPAP at night (9) Morbid obesity: Code(s): E66.01 - Morbid (severe) obesity due to excess calories Status: Acute Assessment and Plan: Encourage mobility (10) Ascites: Code(s): R18.8 - Other ascites Status: Acute Assessment and Plan: Post op ascites continue to watch. Subjective Date/time seen: 05/02/21 10:38 Interval history: Dale Barros is a 70 year old male who was admitted by Dr. Luis on April 27 for abdominal pain and acute appendicitis. Pt is post op, pt is doing ok apart from ascites in abdomen and pleural effusion. Sp ct andomen and chest. Pt is awaiting NG tube today. Review of Systems Review of Systems: All systems reviewed & are unremarkable except as noted in HPI and below Exam Narrative: Exam Narrative: Generally: Pt is very anxious CHEST: Clear to auscultation. HEART: NL S1/S2, regular, no murmur ABDOMEN: Distended, with gross ascites some seepage from abdomen EXTREMITIES: No
[2021-05-02] MEDS: HYDROcodone/acetaminophen (*CRX) 10-325 MG TABLET 1 TAB PO ×3 (12:37→20:52)
--- NOTE | 2021-05-02 13:17 | PC.NURSE ---
To CT via wheelchair.
--- NOTE | 2021-05-02 13:46 | PM.PNGS ---
Progress Note: A&P Assessment and Plan (1) Leukocytosis: Qualifiers: Leukocytosis type: unspecified Qualified Code(s): D72.829 - Elevated white blood cell count, unspecified Code(s): D72.829 - Elevated white blood cell count, unspecified Status: Acute Assessment and Plan: Patient with worsening leukocytosis, WBC count 25,000 today. Afebrile. HIDA normal. CTA negative for PE or pneumonia. LE Doppler neg for DVT. CT abd/pelvis was reviewed with the Radiologist today by Dr. Luis - there is an area of fluid in the right abdomen and perihepatic area. Will plan for percutaneous drainage of this fluid today. (2) Ascites: Code(s): R18.8 - Other ascites Status: Acute Assessment and Plan: Will plan for percutaneous drainage in IR today, see plan above. (3) Acute appendicitis: Qualifiers: Acute appendicitis type: unspecified acute appendicitis type Qualified Code(s): K35.80 - Unspecified acute appendicitis Code(s): K35.80 - Unspecified acute appendicitis Status: Acute Assessment and Plan: NPO for procedure mentioned above. Will resume clear liquids following procedure. Incisions look good, minimal serosanguineous drainage from midline hand-port incision. Encouraged increasing activity, OOB, and IS use. Ordered PT/OT. (4) Dyspnea: Code(s): R06.00 - Dyspnea, unspecified Status: Acute Assessment and Plan: CTA yesterday negative for PE, showed small right pleural effusion, no evidence of pneumonia. Discussed with Hospitalist who has increased his furosemide to try and diurese the patient. Additional Plan I have discussed the patient's case and plan of care with Dr. Luis. Subjective Subjective Date/Time Seen: 05/02/21 13:46 Objective Data Vital Signs Vital Signs: Vital Signs - 24 hr 05/01/21 13:54 05/01/21 14:00 05/01/21 14:12 Temperature 96.8 F L Pulse Rate 108 H 114 H 113 H Respiratory Rate 20 20 Blood Pressure 124/73 Pulse Oximetry 94 05/01/21 14:19 05/01/21 16:00 05/01/21 16:27 Temperature Pulse Rate 112 H 109 H 106 H Respiratory Rate 20 Blood Pressure Pulse Oximetry 05/01/21 20:00 05/01/21 22:00 05/01/21 22:04 Temperature 98.6 F Pulse Rate 93 93 93 Respiratory Rate 18 20 Blood Pressure 115/62 Pulse Oximetry 96 05/01/21 22:13 05/02/21 00:00 05/02/21 03:59 Temperature Pulse Rate 99 93 85 Respiratory Rate 20 20 Blood Pressure Pulse Oximetry 05/02/21 04:00 05/02/21 04:06 05/02/21 06:00 Temperature 97.8 F Pulse Rate 96 87 91 Respiratory Rate 20 18 Blood Pressure 130/87 Pulse Oximetry 97 05/02/21 08:00 05/02/21 08:11 05/02/21 08:21 Temperature 96.8 F L Pulse Rate 98 91 90 Respiratory Rate 18 20 20 Blood Pressure 124/80 Pulse Oximetry 97 05/02/21 08:50 05/02/21 12:00 Temperature Pulse Rate 95 95 Respiratory Rate 20 Blood Pressure Pulse Oximetry 97 Intake/Output Intake/Output: Intake & Output 04/29/21 04/30/21 05/01/21 05/02/21 23:59 23:59 23:59 23:59 Intake Total 3600 3060 1140 450 Output Total 400 1400 1300 400 Balance 3200 1660 -160 50 Meds/Results Medications: Active Medications Generic Name Dose Route Start Last Admin Trade Name Freq PRN Reason Stop Dose Admin Acetaminophen 650 mg 05/01/21 18:39 05/01/21 18:46 Acetaminophen 325 Mg Tablet PO 650 mg Q6H PRN Administration Mild Pain (1-3) or Fever Hydrocodone Bitart/Acetaminophen 1 tab 04/29/21 07:04 05/02/21 12:37 Hydrocodone/Acetaminophen (*Crx) 10-325 Mg Tablet PO 1 tab Q4H PRN Administration Pain Rated 7-10 Albuterol 2.5 mg 05/01/21 02:28 05/02/21 08:11 Albuterol Sulfate Neb 2.5 Mg/0.5 Ml Inh INHALATION 2.5 mg Q6HRT KEILY Administration Albuterol 2.5 mg 05/01/21 02:27 Albuterol Sulfate Neb 2.5 Mg/0.5 Ml Inh INHALATION Q3HR PRN Shortness Of Breath Apixaban 5 mg 04/30/21 17:00 05/02/21 08:50
--- NOTE | 2021-05-02 14:09 | PCOTNOTE ---
Attempted OT evaluation, patient is currently off the unit for a drain placement. will follow and attempt at later time.
--- NOTE | 2021-05-02 14:30 | PC.NURSE ---
Return from CT via wheelchair.
[2021-05-02] MEDS: PRAVASTATIN SODIUM 20 MG TABLET 40 MG PO (20:42)
[2021-05-02] MEDS: lisinopriL 10 MG TABLET PO (20:42)
[2021-05-02] MEDS: HYDROmorphone HCL INJ (*CRX) 1 MG/ML SYR IV PUSH (22:00)
[2021-05-03] VITALS (17 sets, daily range): BP systolic 105–121; BP diastolic 58–68; PULSE 65–90; RESP 18–20; TEMP 35.9–36.1; O2SAT 93–98
--- NOTE | 2021-05-03 | ECHO_ITS ---
Patient Info Name: aDle Barros Age: 70 years : 1950 Gender: Male Ht: 72 in Wt: 301 lbs BSA: 2.69 m2 HR: 65 bpm BP: 105 / 58 mmHg Heart Rhythm: Sinus Rhythm Technical Quality: Fair Exam Date: 05/03/2021 10:41 AM Exam Location: [facility] Patient Status: Inpatient Admit Date: 04/27/2021 Staff Ordering Physician: Tabitha Guerra Administrative Office Manager: CHANCE Attending Provider: Milena Luis MD Referring Physician: Charlie PATINO; Exam Type: CA echo doppler color flow Study Info Indications - ANASARCA Complete two-dimensional, color flow and Doppler transthoracic echocardiogram is performed. Summary 1. Complete two-dimensional, color flow and Doppler transthoracic echocardiogram is performed. 2. Left ventricular chamber dimension is normal. 3. Left ventricular systolic function is normal, estimated at 55-60%. 4. There is mildly increased left ventricular wall thickness. 5. Left atrial chamber dimension is mildly enlarged. 6. The left ventricular diastolic function is normal. 7. There is mild mitral valve regurgitation. 8. There is mild tricuspid valve regurgitation. 9. Moderate pulmonary hypertension, estimated pulmonary arterial systolic pressure is 46 mmHg. Left Ventricle Left ventricular chamber dimension is normal. Left ventricular systolic function is normal, estimated at 55-60%. There is mildly increased left ventricular wall thickness. The left ventricular diastolic function is normal. Right Ventricle Right ventricular chamber dimension is normal. Right ventricular systolic function is normal. Left Atria Left atrial chamber dimension is mildly enlarged. Right Atria Right atrial chamber dimension is normal. Atrial Septum Intact interatrial septum visualized by color flow imaging. Aortic Valve The aortic valve is trileaflet. There is mild aortic valve sclerosis. There is no aortic valve stenosis. There is trace aortic valve regurgitation. Pulmonic Valve The pulmonic valve is normal. There is no pulmonic valve stenosis. There is no pulmonic regurgitation. Mitral Valve The mitral valve has normal leaflets. There is no mitral valve stenosis. There is mild mitral valve regurgitation. Tricuspid Valve The tricuspid valve leaflets are normal. There is no significant tricuspid valve stenosis. There is mild tricuspid valve regurgitation. Moderate pulmonary hypertension, estimated pulmonary arterial systolic pressure is 46 mmHg. Pericardium/Pleural The pericardium appears normal. There is no pericardial effusion. Aorta The aortic root size at the sinus of Valsalva is normal. The prox ascending aorta size is normal. Left Ventricular Outflow Tract Name Value Normal LVOT 2D LVOT Diameter 2.3 cm LVOT Doppler LVOT Peak Gradient 3 mmHg Pulmonic Valve Name Value Normal PV Doppler
[2021-05-03] MEDS: ONDANSETRON INJ 4 MG/2 ML VIAL IV PUSH (00:22)
--- NOTE | 2021-05-03 04:46 | PCRCNOTE ---
Window of time for administration has passed. See next scheduled administration.
[2021-05-03] MEDS: HYDROcodone/acetaminophen (*CRX) 10-325 MG TABLET 1 TAB PO ×4 (05:08→20:45)
[2021-05-03] MEDS: metroNIDAZOLE 500 MG/ISO 100ML 500 MG/100 ML BAG 100 MG IVPB ×3 (05:09→21:40)
[2021-05-03 05:34] LABS: Hematocrit 37.3 % (42.0-52.0); Hemoglobin 12.2 g/dL (14.0-18.0); Mean Corpuscular HGB Conc 32.7 g/dl (32-36); Mean Corpuscular Hemoglobin 29.6 pg (26-34); Mean Corpuscular Volume 90.5 fl (80-100); Mean Platelet Volume 11.9 fl (7.4-10.4); Platelet Count Result 280 k/mm3 (150-375); Red Blood Count 4.12 M/mm3 (4.6-6.20); Red Cell Distribution Width 14.2 % (11.5-14.5); White Blood Count 20.8 K/mm3 (4.5-10.0)
[2021-05-03 05:46] LABS: Anion Gap 10 mmol/L (8-16); Blood Urea Nitrogen 26 mg/dL (9-20); Calcium 8.4 mg/dL (8.4-10.2); Carbon Dioxide 27 mmol/L (22-30); Chloride 100 mmol/L (98-107); Estimated CRCL calculation 99 ml/min; Estimated Glomerular Filt Rate > 60; Glucose 126 mg/dL (75-110); Potassium 4.2 mmol/L (3.4-5.0); Sodium 137 mmol/L (137-145)
[2021-05-03] MEDS: ALBUTEROL SULFATE NEB 2.5 MG/0.5 ML INH INHALATION ×3 (08:24→17:34)
[2021-05-03] MEDS: IPRATROPIUM BR 0.02% INH SOLN 0.5 MG/2.5 ML VIAL INHALATION ×3 (08:24→17:35)
[2021-05-03] MEDS: DIGOXIN TAB 125 MCG TABLET PO (08:49)
[2021-05-03] MEDS: BENZONATATE 100 MG CAPSULE PO ×3 (08:49→17:35)
[2021-05-03] MEDS: DOCUSATE SODIUM 100 MG CAPSULE PO ×2 (08:50→20:32)
[2021-05-03] MEDS: CIPROFLOXACIN 400 MG/D5W 200ML 200 ML 200 MG IVPB ×2 (08:50→20:31)
[2021-05-03] MEDS: SOTALOL HCL 80 MG TABLET PO ×2 (08:50→17:35)
[2021-05-03] MEDS: FUROSEMIDE 80 MG TABLET PO (08:50)
[2021-05-03 09:28] LABS: Albumin Level 2.9 g/dL (3.5-5.1)
--- NOTE | 2021-05-03 10:32 | PM.CNNEP ---
Assessment and Plan Assessment and plan (1) Anasarca: Code(s): R60.1 - Generalized edema Status: Acute Assessment and Plan: does not appear related to his kidneys no evidence of proteinuria does have KELLIE which can make him susceptible to this issue is this just third-spacing secondary to abdominal surgery and low albumin worsened by recent IVF resuscitation?? Echo pending will change to IV bumex with possible use of metolazone as well follow I/Os and exam (2) ANNE MARIE (acute kidney injury): Code(s): N17.9 - Acute kidney failure, unspecified Status: Resolved Assessment and Plan: resolved watch renal function with aggressive diuresis (3) HTN (hypertension): Qualifiers: Hypertension type: unspecified Qualified Code(s): I10 - Essential (primary) hypertension Code(s): I10 - Essential (primary) hypertension Status: Acute Assessment and Plan: reasonable control at this time follow hemodynamics (4) Acute appendicitis: Qualifiers: Acute appendicitis type: unspecified acute appendicitis type Qualified Code(s): K35.80 - Unspecified acute appendicitis Code(s): K35.80 - Unspecified acute appendicitis Status: Acute Assessment and Plan: s/p hand assisted laproscopic appendectomy complicated by abdominal abscess - s/p catheter placement by IR on antibiotics Surgery following Long and extensive discussion ( > 20 minutes) with patient and at bedside regarding his swelling/edema and plan for adjustment in diuretics therapy and following-up with pending studies. They appeared to voiced understanding. Will continue to follow. History of Present Illness Reason for Consult Consult date: 05/03/21 Reason for consult: Other (Anasarca/Edema) Chief Complaint Chief complaint: Acute Appendicitis History of Present Illness Narrative: The patient is a 70 year old male with a past medical history as outlined below who was recently admitted to [facility] for abdominal pain secondary to acute appendicitis. He underwent a hand assisted laparoscopic appendectomy for successful treatment of this issue. However postoperatively he continued to have abdominal pain associated with constipation as well as acute renal failure. With supportive therapy and IV fluid resuscitation, his kidney function returned to baseline but there was some concern that he may have a component of acute cholecystitis. However, HIDA scan was negative for this issue. More recently, he had a CT-guided drain placed for suspected abscess with cultures still pending but he remains on antibiotic therapy. Also of note, the patient has had persistent swelling/edema / bloating for last few days despite holding IV fluids in starting oral diuretic therapy. Renal consultation was requested due to his significant swelling /anasarca. In spite of the a for mentioned swelling and edema, his renal function appears to be doing reasonably well at this time. He has had some fluctuations in his kidney function but this is presumably due to recent fluid resuscitation as well as institution of oral diuretic therapy to try and treat his swelling/edema. From my discussion with the patient and his at bedside, he has never had any issues or problems with swelling or edema to this degree before and there is some concern that perhaps 3rd spacing from his recent operative intervention and ongoing issues with infection may be part of the problem. His urine testing does not demonstrate any evidence of proteinuria and he continues to make fairly good urine output in general. As part of his evaluation for the swelling / edema, he did have a echocardiogram done but the results of which are still pending. Currently, at the time my evaluation, he does not appear to be in acute distress but more just uncomfortable with all the swelling / edema as mentioned above. Re
[2021-05-03] MEDS: ACETAMINOPHEN 325 MG TABLET 650 MG PO (11:22)
--- NOTE | 2021-05-03 12:10 | PM.IMPN ---
Progress Note: A&P Assessment and Plan (1) ANNE MARIE (acute kidney injury): Code(s): N17.9 - Acute kidney failure, unspecified Status: Resolved Assessment and Plan: Creat is 0.9 continue bp medications Nephrology rounding for anasarca (2) Acute appendicitis: Qualifiers: Acute appendicitis type: unspecified acute appendicitis type Qualified Code(s): K35.80 - Unspecified acute appendicitis Code(s): K35.80 - Unspecified acute appendicitis Status: Acute Assessment and Plan: His appendectomy with a retrocecal appendix, post op appendectomy Preoperative CT the abdomen showed gallbladder distention with stone in the gallbladder neck concerning for cholecystitis and ascites in R side of abdomen. Sp CT abdomen (3) Leukocytosis: Qualifiers: Leukocytosis type: unspecified Qualified Code(s): D72.829 - Elevated white blood cell count, unspecified Code(s): D72.829 - Elevated white blood cell count, unspecified Status: Acute Assessment and Plan: Pt is on IV ciprofloxacin and IV flagyl order BC as WCC remain high, wcc improving, follow cultures sp appendectomy Sp ct chest and ct abdomen sp ascitic drain (4) Cholelithiasis: Qualifiers: Cholelithiasis location: gallbladder Cholecystitis presence: without cholecystitis Biliary obstruction: without biliary obstruction Qualified Code(s): K80.20 - Calculus of gallbladder without cholecystitis without obstruction Code(s): K80.20 - Calculus of gallbladder without cholecystitis without obstruction Status: Acute Assessment and Plan: Chronic with possible cholecystitis (5) Paroxysmal atrial fibrillation: Code(s): I48.0 - Paroxysmal atrial fibrillation Status: Acute Assessment and Plan: Continue sotalol Eliquis on hold sp drain placement (6) HTN (hypertension): Qualifiers: Hypertension type: unspecified Qualified Code(s): I10 - Essential (primary) hypertension Code(s): I10 - Essential (primary) hypertension Status: Acute Assessment and Plan: continue HTN medications Monitor BP (7) COPD (chronic obstructive pulmonary disease): Qualifiers: COPD type: unspecified COPD Qualified Code(s): J44.9 - Chronic obstructive pulmonary disease, unspecified Code(s): J44.9 - Chronic obstructive pulmonary disease, unspecified Status: Acute Assessment and Plan: Increase activity Increase hydration Encourage incentive spirometer BT, oral steroids and tessalon perles (8) KELLIE on CPAP: Code(s): G47.33 - Obstructive sleep apnea (adult) (pediatric); Z99.89 - Dependence on other enabling machines and devices Status: Acute Assessment and Plan: Auto titrating or home CPAP at night (9) Morbid obesity: Code(s): E66.01 - Morbid (severe) obesity due to excess calories Status: Acute Assessment and Plan: Encourage mobility (10) Ascites: Code(s): R18.8 - Other ascites Status: Acute Assessment and Plan: Post op ascites continue to watch. echo ordered, watching uo, cmp, nephrology consulted sp drain placement and iv abx for possible intraabdominal infection Subjective Date/time seen: 05/03/21 12:10 Interval history: Dale Barros is a 70 year old male who was admitted by Dr. Luis on April 27 for abdominal pain and acute appendicitis. Pt is post op, pt is doing ok apart from ascites in abdomen and pleural effusion. Sp ct abdomen and chest. Pt has percutaneous drain in situ. Pt feels slightly better today less abdominal discomfort Review of Systems Review of Systems: All systems reviewed & are unremarkable except as noted in HPI and below Exam Narrative: Exam Narrative: Generally: Pt is very anxious CHEST: Clear to auscultation. HEART: NL S1/S2, regular, no murmur ABDOMEN: Some distension with percutaneous drain in situ
[2021-05-03] MEDS: BUMETANIDE INJ 1 MG/4 ML VIAL IV PUSH (12:24)
[2021-05-03 12:39] LABS: Add Urine Microscopic? YES; Appearance Urine Clear (Clear); Bilirubin Urine Negative (Negative); Blood Urine 2+ (Negative); Color Urine Yellow (Yellow); Glucose Urine UA Negative (Negative); Ketones Urine Negative (Negative); Leukocyte Esterase Ur Trace LEU/UL (Negative); Nitrate Urine Negative (Negative); Protein Urine Negative (Negative); Specific Grav Ur 1.025 (1.001-1.035); Urobilinogen Urine Negative mg/dL (<2.0)
[2021-05-03 12:46] LABS: Creatinine Urine 133.7 mg/dL; Total Protein Urine Random 11 mg/dL; Ur Ttl Prot Creatinine Ratio 0.08 mg/mg (0-0.20)
[2021-05-03 12:48] LABS: Sodium Urine Random 34 meq/L
[2021-05-03 12:54] LABS: Squamous Epithelial Cell Urine Few /hpf (Few); WBC Urine 0-3 /hpf (0-3)
[2021-05-03 12:55] LABS: Bacteria Urine Trace /hpf
--- NOTE | 2021-05-03 15:27 | PM.PNGS ---
Progress Note: A&P Assessment and Plan (1) Leukocytosis: Qualifiers: Leukocytosis type: unspecified Qualified Code(s): D72.829 - Elevated white blood cell count, unspecified Code(s): D72.829 - Elevated white blood cell count, unspecified Status: Acute Assessment and Plan: WBC down today to 20,000 and patient has clinically showed some improvement following perc drainage. Remains afebrile. Continue IV abx. Monitor labs. Cultures from intraabdominal fluid pending. (2) Ascites: Code(s): R18.8 - Other ascites Status: Acute Assessment and Plan: Percutaneous drainage of intra-abdominal fluid yesterday yielding dark red opaque drainage. Eliquis was stopped initially due to the concern of bleeding. The drainage appears dark today and his H/H is stable. Will resume his Eliquis. Cultures from drainage are pending. (3) Acute appendicitis: Qualifiers: Acute appendicitis type: unspecified acute appendicitis type Qualified Code(s): K35.80 - Unspecified acute appendicitis Code(s): K35.80 - Unspecified acute appendicitis Status: Acute Assessment and Plan: Seems to be dealing with a post-op ileus and still feeling very nauseated. Patient refused NG tube yesterday after a failed attempt to place this by the nurses. Continue clear liquids and advance diet as tolerated. Encouraged increasing activity, OOB, and IS use. PT/OT following. (4) Dyspnea: Code(s): R06.00 - Dyspnea, unspecified Status: Acute Assessment and Plan: CTA negative for PE, showed small right pleural effusion, no evidence of pneumonia. Hospitalist managing diuretics, appreciate help. Continue nebulizers and supportive treatment for his COPD. Additional Plan I have discussed the patient's case and plan of care with Dr. Luis. Subjective Subjective Date/Time Seen: 05/03/21 09:27 Patient reports: no new complaints, feels better, pain is less, tolerating liquids well, no flatus, no bowel movement and nausea Interval history: Patient seen this morning and feeling better today. Reports his right-sided abdominal pain has improved. Still having nausea, but no vomiting. No flatus or BM. He reports his breathing feels about the same as yesterday in regards to shortness of breath with activity. No other specific complaints. Review of Systems Review of Systems: All systems reviewed & are unremarkable except as noted in HPI and below Constitutional: Constitutional: Denies chills and Denies fever(s) Exam Const: General: alert and awake Nutritional Appearance: obese Resp: Effort & Inspection: normal respiratory effort and no audible wheezes Auscultation: diminished lung sounds bilateral in the lower lung silverio Cardio: Rate: regular rate Rhythm: regular rhythm GI: Inspection: Abdominal wall edema and distended GI Palp: Yes Firmness to palpation present (GI), Yes Tenderness to palpation present (GI) (right-sided tenderness), No Guarding due to palpation present (GI) and No Rebound tenderness present Auscultation: High-pitched bowel sounds present and Hypoactive bowel sounds present Other: Abdominal incisions with clint intact and minimal serous drainage. Right-sided perc drain with small amount of dark red output Neuro: General: moves all extremities and no focal motor deficits Extrem: General: no calf tenderness Right upper extremity: edema (1+ nonpitting) Left upper extremity: edema (1+ nonpitting) Right lower extremity: edema (1+ nonpitting) Left lower extremity: edema (1+ nonpitting) Psych: Mental Status: mental status grossly normal Insight: Good insight present (Psych) Judgement: Good judgement present (Psych) Objective Data Vital Signs Vital Signs: Vital Signs - 24 hr 05/02/21 16:00 05/02/21 16:54 05/02/21 20:00 Temperature Pulse Rate 93 84 78 Respiratory Rate 20 Blood Pressure Pulse Oximetry 93 05/02/21 20:08 05/02/21 20:18 05/02/21 20:48 Tem
[2021-05-03 16:07] LABS: Eosinophil Urine None Seen % (None Seen)
[2021-05-03] MEDS: APIXABAN 5 MG TABLET PO (17:00)
[2021-05-03] MEDS: BUMETANIDE INJ 1 MG/4 ML VIAL 2 MG IV PUSH (17:35)
[2021-05-03] MEDS: lisinopriL 10 MG TABLET PO (20:32)
[2021-05-03] MEDS: PRAVASTATIN SODIUM 20 MG TABLET 40 MG PO (20:32)
[2021-05-03] MEDS: FAMOTIDINE 20 MG TABLET PO (21:41)
[2021-05-04] VITALS (19 sets, daily range): BP systolic 115–125; BP diastolic 52–63; PULSE 66–89; RESP 18–20; TEMP 35.9–36.1; O2SAT 93–94; BMI 40.8
[2021-05-04] MEDS: HYDROmorphone HCL INJ (*CRX) 1 MG/ML SYR IV PUSH ×2 (00:15→13:38)
[2021-05-04] MEDS: ALBUTEROL SULFATE NEB 2.5 MG/0.5 ML INH INHALATION ×4 (01:41→21:37)
[2021-05-04] MEDS: IPRATROPIUM BR 0.02% INH SOLN 0.5 MG/2.5 ML VIAL INHALATION ×4 (01:42→21:37)
[2021-05-04] MEDS: HYDROcodone/acetaminophen (*CRX) 10-325 MG TABLET 1 TAB PO ×3 (04:19→18:03)
[2021-05-04] MEDS: metroNIDAZOLE 500 MG/ISO 100ML 500 MG/100 ML BAG 100 MG IVPB ×3 (05:22→21:10)
[2021-05-04 05:43] LABS: Hematocrit 40.2 % (42.0-52.0); Mean Corpuscular HGB Conc 32.3 g/dl (32-36); Mean Corpuscular Hemoglobin 29.7 pg (26-34); Mean Corpuscular Volume 91.8 fl (80-100); Mean Platelet Volume 11.8 fl (7.4-10.4); Platelet Count Result 335 k/mm3 (150-375); Red Blood Count 4.38 M/mm3 (4.6-6.20); White Blood Count 17.9 K/mm3 (4.5-10.0)
[2021-05-04 05:51] LABS: Albumin Level 3.4 g/dL (3.5-5.1); Anion Gap 9 mmol/L (8-16); Blood Urea Nitrogen 28 mg/dL (9-20); Calcium 8.8 mg/dL (8.4-10.2); Carbon Dioxide 33 mmol/L (22-30); Chloride 94 mmol/L (98-107); Estimated CRCL calculation 82 ml/min; Estimated Glomerular Filt Rate > 60; Glucose 128 mg/dL (75-110); Phosphorus 4.6 mg/dL (2.5-4.5); Potassium 4.9 mmol/L (3.4-5.0); Sodium 136 mmol/L (137-145)
[2021-05-04 06:10] LABS: Band Neutrophils Percent 6 % (0-6); Eosinophils Absolute Manual 0.35 K/mm3 (0.02-0.5); Eosinophils Percent Manual 2 % (0-4); Lymphocytes Absolute Manual 2.32 K/mm3 (1.1-4.5); Metamyelocytes Percent 2 %; Monocytes Absolute Manual 1.07 K/mm3 (0.1-0.90); Monocytes Percent Manual 6 % (3-9); Neutrophils Absolute Manual 13.78 K/mm3 (1.3-6.7); Neutrophils Percent Manual 71 % (46-73); Platelet Estimate Adequate (Adequate); Total Cells Counted 100
[2021-05-04] MEDS: ONDANSETRON INJ 4 MG/2 ML VIAL IV PUSH ×2 (08:37→18:02)
[2021-05-04] MEDS: CIPROFLOXACIN 400 MG/D5W 200ML 200 ML 200 MG IVPB ×2 (08:37→19:59)
[2021-05-04] MEDS: BUMETANIDE INJ 1 MG/4 ML VIAL 2 MG IV PUSH ×2 (08:38→18:02)
[2021-05-04] MEDS: SOTALOL HCL 80 MG TABLET PO ×2 (08:39→18:02)
[2021-05-04] MEDS: metOLazone 5 MG TABLET PO (08:39)
[2021-05-04] MEDS: DIGOXIN TAB 125 MCG TABLET PO (08:40)
[2021-05-04] MEDS: FAMOTIDINE 20 MG TABLET PO ×2 (08:40→20:01)
[2021-05-04] MEDS: DOCUSATE SODIUM 100 MG CAPSULE PO ×2 (08:40→20:00)
[2021-05-04] MEDS: BENZONATATE 100 MG CAPSULE PO ×3 (08:40→18:02)
[2021-05-04] MEDS: APIXABAN 5 MG TABLET PO ×2 (09:00→18:03)
--- NOTE | 2021-05-04 11:56 | PCNSR ---
On 05/04/21, the student, Tabatha Mei, provided care and completed [facility] documentation on this patient. I have reviewed the student's documentation and agree with the findings.
--- NOTE | 2021-05-04 12:44 | PM.IMPN ---
Progress Note: A&P Assessment and Plan (1) ANNE MARIE (acute kidney injury): Code(s): N17.9 - Acute kidney failure, unspecified Status: Resolved Assessment and Plan: Creat is 1.1 continue bp medications Nephrology rounding for anasarca (2) Acute appendicitis: Qualifiers: Acute appendicitis type: unspecified acute appendicitis type Qualified Code(s): K35.80 - Unspecified acute appendicitis Code(s): K35.80 - Unspecified acute appendicitis Status: Acute Assessment and Plan: His appendectomy with a retrocecal appendix, post op appendectomy Preoperative CT the abdomen showed gallbladder distention with stone in the gallbladder neck concerning for cholecystitis and ascites in R side of abdomen. Sp CT abdomen (3) Leukocytosis: Qualifiers: Leukocytosis type: unspecified Qualified Code(s): D72.829 - Elevated white blood cell count, unspecified Code(s): D72.829 - Elevated white blood cell count, unspecified Status: Acute Assessment and Plan: Pt is on IV ciprofloxacin and IV flagyl order BC as WCC remain high, wcc improving, follow cultures sp appendectomy Sp ct chest and ct abdomen sp ascitic drain Consult ID (4) Cholelithiasis: Qualifiers: Cholelithiasis location: gallbladder Cholecystitis presence: without cholecystitis Biliary obstruction: without biliary obstruction Qualified Code(s): K80.20 - Calculus of gallbladder without cholecystitis without obstruction Code(s): K80.20 - Calculus of gallbladder without cholecystitis without obstruction Status: Acute Assessment and Plan: Chronic with possible cholecystitis (5) Paroxysmal atrial fibrillation: Code(s): I48.0 - Paroxysmal atrial fibrillation Status: Acute Assessment and Plan: Continue sotalol Eliquis on hold sp drain placement can continue eliquis. (6) HTN (hypertension): Qualifiers: Hypertension type: unspecified Qualified Code(s): I10 - Essential (primary) hypertension Code(s): I10 - Essential (primary) hypertension Status: Acute Assessment and Plan: continue HTN medications Monitor BP (7) COPD (chronic obstructive pulmonary disease): Qualifiers: COPD type: unspecified COPD Qualified Code(s): J44.9 - Chronic obstructive pulmonary disease, unspecified Code(s): J44.9 - Chronic obstructive pulmonary disease, unspecified Status: Acute Assessment and Plan: Increase activity Increase hydration Encourage incentive spirometer BT, oral steroids and tessalon perles (8) KELLIE on CPAP: Code(s): G47.33 - Obstructive sleep apnea (adult) (pediatric); Z99.89 - Dependence on other enabling machines and devices Status: Acute Assessment and Plan: Auto titrating or home CPAP at night (9) Morbid obesity: Code(s): E66.01 - Morbid (severe) obesity due to excess calories Status: Acute Assessment and Plan: Encourage mobility (10) Ascites: Code(s): R18.8 - Other ascites Status: Acute Assessment and Plan: Post op ascites continue to watch. echo ordered, watching uo, cmp, nephrology consulted sp drain placement and iv abx for possible intraabdominal infection (11) Vomiting bile: Code(s): R11.14 - Bilious vomiting Status: Acute Assessment and Plan: Pt vomiting bile refusing NG tube, KUB stat ordered, surgery notified, pt has not had bowel movement for few days. order laxatives after KUB result. Subjective Date/time seen: 05/04/21 12:44 Interval history: Dale Barros is a 70 year old male who was admitted by Dr. Luis on April 27 for abdominal pain and acute appendicitis. Pt is post op, pt is doing ok apart from ascites in abdomen and pleural effusion. Sp ct abdomen and chest. Pt has percutaneous drain in situ. Pt having bile stained vomit today. KUB ordered. Pt refusing NG tube
--- NOTE | 2021-05-04 15:19 | PM.PNNEP ---
Progress Note: A&P Assessment and Plan (1) Anasarca: Code(s): R60.1 - Generalized edema Status: Acute Assessment and Plan: does not appear related to his kidneys no evidence of proteinuria does have KELLIE which can make him susceptible to this issue is this just third-spacing secondary to abdominal surgery and low albumin worsened by recent IVF resuscitation?? Echo noted -- evidence of pulmonary HTN on IV bumex with PRN use of metolazone as well follow I/Os and exam (2) ANNE MARIE (acute kidney injury): Code(s): N17.9 - Acute kidney failure, unspecified Status: Resolved Assessment and Plan: resolved watch renal function with aggressive diuresis (3) HTN (hypertension): Qualifiers: Hypertension type: unspecified Qualified Code(s): I10 - Essential (primary) hypertension Code(s): I10 - Essential (primary) hypertension Status: Acute Assessment and Plan: reasonable control at this time follow hemodynamics (4) Acute appendicitis: Qualifiers: Acute appendicitis type: unspecified acute appendicitis type Qualified Code(s): K35.80 - Unspecified acute appendicitis Code(s): K35.80 - Unspecified acute appendicitis Status: Acute Assessment and Plan: s/p hand assisted laproscopic appendectomy complicated by abdominal abscess - s/p catheter placement by IR on antibiotics Surgery following Long and extensive discussion (> 20 minutes) with patient's daughter at bedside regarding his stable renal function and use of diuretic therapy to help optimize his volume status but at the same time not precipitating worsening renal/kidney function. Will continue to follow. Subjective Date/time seen: 05/04/21 15:19 States he feels the bloating and swelling is doing significantly better today; daughter (who is a nurse) was at bedside and we discussed the situation; he still reports some on/off right abdominal pain but no worsening; no issues or problems overnight; no apparent distress on my visit. Exam Narrative: Exam Narrative: General: WD/WN male in NAD Heart: normal S1 and S2; no rub Lungs: clear to auscultation Abdomen: mild distension but positive bowel sounds Extremities: no cyanosis or clubbing; trace edema Skin: warm and dry Objective Data Vital Signs Vital Signs: Vital Signs Temp Pulse Resp BP Pulse Ox 05/04/21 14:48 89 20 05/04/21 14:36 66 20 05/04/21 14:15 36.1 C L 66 18 115/52 L 93 05/04/21 12:00 70 05/04/21 09:47 74 18 05/04/21 08:40 76 05/04/21 08:39 76 05/04/21 08:00 66 05/04/21 05:12 36.1 C L 71 20 118/62 94 05/04/21 04:00 76 05/04/21 01:53 73 20 05/04/21 01:43 71 20 05/04/21 00:00 72 05/03/21 20:15 36.1 C L 69 20 118/68 98 05/03/21 20:00 70 05/03/21 17:45 90 20 05/03/21 17:37 86 20 05/03/21 17:35 65 Intake/Output Intake/Output: Intake & Output 05/01/21 05/02/21 05/03/21 05/04/21 23:59 23:59 23:59 23:59 Intake Total 1140 1150 2730 780 Output Total 4869 0875 8455 700 Balance -160 -305 -95 80 Meds/Results Medications: Active Medications Generic Name Dose Route Start Last Admin Trade Name Freq PRN Reason Stop Dose Admin Acetaminophen 650 mg 05/01/21 18:39 05/03/21 11:22 Acetaminophen 325 Mg Tablet PO 650 mg Q6H PRN Administration Mild Pain (1-3) or Fever Hydrocodone Bitart/Acetaminophen 1 tab 04/29/21 07:04 05/04/21 08:40 Hydrocodone/Acetaminophen (*Crx) 10-325 Mg Tablet PO 1 tab Q4H PRN Administration Pain Rated 7-10 Albuterol 2.5 mg 05/01/21 02:28 05/04/21 14:34 Albuterol Sulfate Neb 2.5 Mg/0.5 Ml Inh INHALATION 2.5 mg Q6HRT KEILY Administration Albuterol 2.5 mg 05/01/21 02:27 Albuterol Sulfate Neb 2.5 Mg/0.5 Ml Inh INHALATION Q3HR PRN Shortness Of Breath Apixaban 5 mg 04/30/21 17:00
[2021-05-04] MEDS: BISACODYL 10 MG SUPPOSITORY RECTAL (19:58)
[2021-05-04] MEDS: lisinopriL 10 MG TABLET PO (20:02)
[2021-05-04] MEDS: PRAVASTATIN SODIUM 20 MG TABLET 40 MG PO (20:02)
--- NOTE | 2021-05-04 21:49 | PM.PNGS ---
Progress Note: A&P Assessment and Plan (1) Acute appendicitis: Qualifiers: Acute appendicitis type: unspecified acute appendicitis type Qualified Code(s): K35.80 - Unspecified acute appendicitis Code(s): K35.80 - Unspecified acute appendicitis Status: Acute Assessment and Plan: improving slowly, cont abx, drain, encourage OOB/IS (2) Ileus: Code(s): K56.7 - Ileus, unspecified Status: Acute Assessment and Plan: suppository given, limit narcotic use, encourage OOB (3) Anasarca: Code(s): R60.1 - Generalized edema Status: Acute Assessment and Plan: improving c diuresis Subjective Subjective Date/Time Seen: 05/04/21 21:49 feels better tonight, reports pain better, feels less swollen, still no bowel fxn Review of Systems Review of Systems: All systems reviewed & are unremarkable except as noted in HPI and below Exam Const: General: cooperative and no acute distress Resp: Auscultation: wheezes and diminished lung sounds Cardio: Rate: regular rate Rhythm: regular rhythm GI: Inspection: normal to inspection, Abdominal wall edema, distended and incision GI Palp: Yes Soft to palpation, Yes Tenderness to palpation present (GI) and No Guarding due to palpation present (GI) Other: RAFIQ - moderate s/s output Objective Data Vital Signs Vital Signs: Vital Signs - 24 hr 05/04/21 00:00 05/04/21 01:43 05/04/21 01:53 Temperature Pulse Rate 72 71 73 Respiratory Rate 20 20 Blood Pressure Pulse Oximetry 05/04/21 04:00 05/04/21 05:12 05/04/21 08:00 Temperature 36.1 C L Pulse Rate 76 71 66 Respiratory Rate 20 Blood Pressure 118/62 Pulse Oximetry 94 05/04/21 08:39 05/04/21 08:40 05/04/21 09:47 Temperature Pulse Rate 76 76 74 Respiratory Rate 18 Blood Pressure Pulse Oximetry 05/04/21 12:00 05/04/21 14:15 05/04/21 14:36 Temperature 36.1 C L Pulse Rate 70 66 66 Respiratory Rate 18 20 Blood Pressure 115/52 L Pulse Oximetry 93 05/04/21 14:48 05/04/21 16:00 05/04/21 18:02 Temperature Pulse Rate 89 66 76 Respiratory Rate 20 Blood Pressure Pulse Oximetry 05/04/21 20:25 05/04/21 21:39 05/04/21 21:48 Temperature 35.9 C L Pulse Rate 76 74 68 Respiratory Rate 20 20 20 Blood Pressure 125/63 Pulse Oximetry 93 Intake/Output Intake/Output: Intake & Output 05/01/21 05/02/21 05/03/21 05/04/21 23:59 23:59 23:59 23:59 Intake Total 1140 1150 2730 1520 Output Total 6386 1455 9415 2625 Balance -160 - Meds/Results Medications: Active Medications Generic Name Dose Route Start Last Admin Trade Name Freq PRN Reason Stop Dose Admin Acetaminophen 650 mg 05/01/21 18:39 05/03/21 11:22 Acetaminophen 325 Mg Tablet PO 650 mg Q6H PRN Administration Mild Pain (1-3) or Fever Hydrocodone Bitart/Acetaminophen 1 tab 04/29/21 07:04 05/04/21 18:03 Hydrocodone/Acetaminophen (*Crx) 10-325 Mg Tablet PO 1 tab Q4H PRN Administration Pain Rated 7-10 Albuterol 2.5 mg 05/01/21 02:28 05/04/21 21:37 Albuterol Sulfate Neb 2.5 Mg/0.5 Ml Inh INHALATION 2.5 mg Q6HRT KEILY Administration Albuterol 2.5 mg 05/01/21 02:27 Albuterol Sulfate Neb 2.5 Mg/0.5 Ml Inh INHALATION Q3HR PRN Shortness Of Breath Apixaban 5 mg 04/30/21 17:00 05/04/21 18:03 Apixaban 5 Mg Tablet PO 5 mg BID KEILY Administration Benzonatate 100 mg 04/30/21 17:00 05/04/21 18:02 Benzonatate 100 Mg Capsule PO 100 mg TID KEILY Administration Bumetanide 2 mg 05/03/21 17:00 05/04/21 18:02 Bumetanide Inj 1 Mg/4 Ml Vial IV PUSH 05/06/21 17:01 2 mg BID KEILY Administration Digoxin 125 mcg 04/27/21 11:45 05/04/21 08:40 Digoxin Tab 125 Mcg Tablet PO 125 mcg DAILY KEILY Administration Diltiazem HCl 240 mg 04/27/21 21:00 05/04/21 20:01 Diltiazem Hcl Cd 240 Mg Cap.Er.24h PO 240 mg HS KEILY Administration Docusate Sodium 100 mg
[2021-05-05] VITALS (19 sets, daily range): BP systolic 101–112; BP diastolic 53–74; PULSE 54–81; RESP 18–20; TEMP 36–36.7; O2SAT 92–98
[2021-05-05] MEDS: HYDROcodone/acetaminophen (*CRX) 10-325 MG TABLET 1 TAB PO ×2 (02:20→21:58)
[2021-05-05] MEDS: IPRATROPIUM BR 0.02% INH SOLN 0.5 MG/2.5 ML VIAL INHALATION ×4 (02:39→20:18)
[2021-05-05] MEDS: ALBUTEROL SULFATE NEB 2.5 MG/0.5 ML INH INHALATION ×4 (02:39→20:18)
[2021-05-05] MEDS: metroNIDAZOLE 500 MG/ISO 100ML 500 MG/100 ML BAG 100 MG IVPB ×3 (05:50→21:04)
[2021-05-05 07:59] LABS: Hematocrit 39.8 % (42.0-52.0); Hemoglobin 13.1 g/dL (14.0-18.0); Mean Corpuscular HGB Conc 32.9 g/dl (32-36); Mean Corpuscular Hemoglobin 29.8 pg (26-34); Mean Corpuscular Volume 90.5 fl (80-100); Mean Platelet Volume 11.7 fl (7.4-10.4); Platelet Count Result 387 k/mm3 (150-375); Red Cell Distribution Width 13.7 % (11.5-14.5); White Blood Count 21.1 K/mm3 (4.5-10.0)
[2021-05-05 08:04] LABS: Anion Gap 8 mmol/L (8-16); Blood Urea Nitrogen 25 mg/dL (9-20); Calcium 8.4 mg/dL (8.4-10.2); Carbon Dioxide 33 mmol/L (22-30); Chloride 93 mmol/L (98-107); Estimated CRCL calculation 82 ml/min; Estimated Glomerular Filt Rate > 60; Glucose 127 mg/dL (75-110); Potassium 4.2 mmol/L (3.4-5.0); Sodium 134 mmol/L (137-145)
[2021-05-05] MEDS: DOCUSATE SODIUM 100 MG CAPSULE PO ×2 (08:20→20:05)
[2021-05-05] MEDS: CIPROFLOXACIN 400 MG/D5W 200ML 200 ML 200 MG IVPB ×2 (08:20→20:04)
[2021-05-05] MEDS: DIGOXIN TAB 125 MCG TABLET PO (08:20)
[2021-05-05] MEDS: FAMOTIDINE 20 MG TABLET PO ×2 (08:20→20:05)
[2021-05-05] MEDS: BENZONATATE 100 MG CAPSULE PO ×3 (08:21→17:47)
[2021-05-05] MEDS: APIXABAN 5 MG TABLET PO ×2 (08:21→17:47)
[2021-05-05] MEDS: SOTALOL HCL 80 MG TABLET PO ×2 (08:21→17:47)
[2021-05-05] MEDS: ONDANSETRON INJ 4 MG/2 ML VIAL IV PUSH (08:25)
[2021-05-05] MEDS: BUMETANIDE INJ 1 MG/4 ML VIAL 2 MG IV PUSH ×2 (09:27→17:46)
--- NOTE | 2021-05-05 09:43 | PM.PNGS ---
Progress Note: A&P Assessment and Plan (1) Acute appendicitis: Qualifiers: Acute appendicitis type: unspecified acute appendicitis type Qualified Code(s): K35.80 - Unspecified acute appendicitis Code(s): K35.80 - Unspecified acute appendicitis Status: Acute Assessment and Plan: Pigtail drain with persistent purulence fluid. Continue IV antibiotics. (2) Leukocytosis: Qualifiers: Leukocytosis type: unspecified Qualified Code(s): D72.829 - Elevated white blood cell count, unspecified Code(s): D72.829 - Elevated white blood cell count, unspecified Status: Acute Assessment and Plan: White blood count still elevated. (3) Ileus: Code(s): K56.7 - Ileus, unspecified Status: Acute Assessment and Plan: Minimal signs of bowel function returned. Will attempt Dulcolax suppository today and start Reglan IV. May consider Gastrografin small-bowel follow-through tomorrow if still no significant improvement. Subjective Subjective Date/Time Seen: 05/05/21 09:43 Interval history: Patient had small bowel movement this morning. Still not passing much flatus. No fevers. Still feeling bloated having occasional vomiting. NG tube was attempted previously, but patient was unable to tolerate. Exam GI: Inspection: distended and other (Pigtail drain with dark reddish brown output) GI Palp: Yes Firmness to palpation present (GI) and Yes Tenderness to palpation present (GI) (Mild generalized) Auscultation: Hypoactive bowel sounds present Objective Data Vital Signs Vital Signs: Vital Signs - 24 hr 05/04/21 09:47 05/04/21 12:00 05/04/21 14:15 Temperature 36.1 C L Pulse Rate 74 70 66 Respiratory Rate 18 18 Blood Pressure 115/52 L Pulse Oximetry 93 05/04/21 14:36 05/04/21 14:48 05/04/21 16:00 Temperature Pulse Rate 66 89 66 Respiratory Rate 20 20 Blood Pressure Pulse Oximetry 05/04/21 18:02 05/04/21 20:00 05/04/21 20:25 Temperature 35.9 C L Pulse Rate 76 73 76 Respiratory Rate 20 Blood Pressure 125/63 Pulse Oximetry 93 05/04/21 21:39 05/04/21 21:48 05/05/21 00:00 Temperature Pulse Rate 74 68 67 Respiratory Rate 20 20 Blood Pressure Pulse Oximetry 05/05/21 02:39 05/05/21 02:47 05/05/21 04:00 Temperature Pulse Rate 54 L 65 73 Respiratory Rate 20 20 Blood Pressure Pulse Oximetry 05/05/21 05:18 05/05/21 09:33 05/05/21 09:41 Temperature 36.0 C L Pulse Rate 68 69 81 Respiratory Rate 20 20 18 Blood Pressure 112/67 Pulse Oximetry 92 Intake/Output Intake/Output: Intake & Output 05/02/21 05/03/21 05/04/21 05/05/21 23:59 23:59 23:59 23:59 Intake Total 1150 2730 1620 340 Output Total 1455 2825 2624 1330 Balance - -990 Meds/Results Medications: Active Medications Generic Name Dose Route Start Last Admin Trade Name Freq PRN Reason Stop Dose Admin Acetaminophen 650 mg 05/01/21 18:39 05/03/21 11:22 Acetaminophen 325 Mg Tablet PO 650 mg Q6H PRN Administration Mild Pain (1-3) or Fever Hydrocodone Bitart/Acetaminophen 1 tab 04/29/21 07:04 05/05/21 02:20 Hydrocodone/Acetaminophen (*Crx) 10-325 Mg Tablet PO 1 tab Q4H PRN Administration Pain Rated 7-10 Albuterol 2.5 mg 05/01/21 02:28 05/05/21 09:31 Albuterol Sulfate Neb 2.5 Mg/0.5 Ml Inh INHALATION 2.5 mg Q6HRT KEILY Administration Albuterol 2.5 mg 05/01/21 02:27 Albuterol Sulfate Neb 2.5 Mg/0.5 Ml Inh INHALATION Q3HR PRN Shortness Of Breath Apixaban 5 mg 04/30/21 17:00 05/05/21 08:21 Apixaban 5 Mg Tablet PO 5 mg BID KEILY Administration Benzonatate 100 mg 04/30/21 17:00 05/05/21 08:21 Benzonatate 100 Mg Capsule PO 100 mg TID KEILY Administration Bisacodyl 10 mg 05/05/21 09:42 Bisacodyl 10 Mg Suppository RECTAL 05/05/21 09:43 ONCE ONE Bumetanide 2 mg 05/03/21 17:00 05/05/21 09:27 Bumetanide Inj 1 Mg/4 Ml Vi
--- NOTE | 2021-05-05 10:13 | PM.PNNEP ---
Progress Note: A&P Assessment and Plan (1) Anasarca: Code(s): R60.1 - Generalized edema Status: Acute Assessment and Plan: does not appear related to his kidneys no evidence of proteinuria does have KELLIE which can make him susceptible to this issue is this just third-spacing secondary to abdominal surgery and low albumin worsened by recent IVF resuscitation?? Echo noted -- evidence of pulmonary HTN on IV bumex with PRN use of metolazone as well follow I/Os and exam may need to cut back on diuretic therapy due to fear of precipitation volume depletion given suboptimal oral intake (2) ANNE MARIE (acute kidney injury): Code(s): N17.9 - Acute kidney failure, unspecified Status: Resolved Assessment and Plan: resolved watch renal function with aggressive diuresis (3) HTN (hypertension): Qualifiers: Hypertension type: unspecified Qualified Code(s): I10 - Essential (primary) hypertension Code(s): I10 - Essential (primary) hypertension Status: Acute Assessment and Plan: reasonable control at this time follow hemodynamics (4) Acute appendicitis: Qualifiers: Acute appendicitis type: unspecified acute appendicitis type Qualified Code(s): K35.80 - Unspecified acute appendicitis Code(s): K35.80 - Unspecified acute appendicitis Status: Acute Assessment and Plan: s/p hand assisted laproscopic appendectomy complicated by abdominal abscess - s/p catheter placement by IR on antibiotics Surgery following Will continue to follow. Subjective Date/time seen: 05/05/21 10:13 Still feeling bloated (did have a small bowel movement) and making good urine output (with diuretics); still with purulent drainage from his abdominal drain; suboptimal oral intake still noted; Exam Narrative: Exam Narrative: General: WD/WN male in NAD Heart: normal S1 and S2; no rub Lungs: clear to auscultation Abdomen: mild distension; drain in place; positive bowel sounds Extremities: no cyanosis or clubbing; trace edema Skin: warm and dry Objective Data Vital Signs Vital Signs: Vital Signs Temp Pulse Resp BP Pulse Ox 05/05/21 09:41 81 18 05/05/21 09:33 69 20 05/05/21 08:15 67 109/53 L 96 05/05/21 08:00 65 05/05/21 05:18 36.0 C L 68 20 112/67 92 05/05/21 04:00 73 05/05/21 02:47 65 20 05/05/21 02:39 54 L 20 05/05/21 00:00 67 05/04/21 21:48 68 20 05/04/21 21:39 74 20 05/04/21 20:25 35.9 C L 76 20 125/63 93 05/04/21 20:00 73 05/04/21 18:02 76 05/04/21 16:00 66 05/04/21 14:48 89 20 05/04/21 14:36 66 20 05/04/21 14:15 36.1 C L 66 18 115/52 L 93 Intake/Output Intake/Output: Intake & Output 05/02/21 05/03/21 05/04/21 05/05/21 23:59 23:59 23:59 23:59 Intake Total 1150 2730 1620 610 Output Total 1455 2825 2625 1330 Balance - -720 Meds/Results Medications: Active Medications Generic Name Dose Route Start Last Admin Trade Name Freq PRN Reason Stop Dose Admin Acetaminophen 650 mg 05/01/21 18:39 05/03/21 11:22 Acetaminophen 325 Mg Tablet PO 650 mg Q6H PRN Administration Mild Pain (1-3) or Fever Hydrocodone Bitart/Acetaminophen 1 tab 04/29/21 07:04 05/05/21 02:20 Hydrocodone/Acetaminophen (*Crx) 10-325 Mg Tablet PO 1 tab Q4H PRN Administration Pain Rated 7-10 Albuterol 2.5 mg 05/01/21 02:28 05/05/21 09:31 Albuterol Sulfate Neb 2.5 Mg/0.5 Ml Inh INHALATION 2.5 mg Q6HRT KEILY Administration Albuterol 2.5 mg 05/01/21 02:27 Albuterol Sulfate Neb 2.5 Mg/0.5 Ml Inh INHALATION Q3HR PRN Shortness Of Breath Apixaban 5 mg 04/30/21 17:00 05/05/21 08:21 Apixaban 5 Mg Tablet PO 5 mg BID KEILY Administration Benzonatate 100 mg 04/30/21 17:00 05/05/21 08:21 Benzonatate 100 Mg Capsule PO 100 mg TID KEILY Administration Bu
--- NOTE | 2021-05-05 10:13 | P.PNNP_ITS ---
Progress Note: A&P Assessment and Plan (1) Anasarca: Code(s): R60.1 - Generalized edema Status: Acute Assessment and Plan: * does not appear related to his kidneys * no evidence of proteinuria * does have KELLIE which can make him susceptible to this issue * is this just third-spacing secondary to abdominal surgery and low albumin worsened by recent IVF resuscitation?? * Echo noted -- evidence of pulmonary HTN * on IV bumex with PRN use of metolazone as well * follow I/Os and exam * may need to cut back on diuretic therapy due to fear of precipitation volume depletion given suboptimal oral intake (2) ANNE MARIE (acute kidney injury): Code(s): N17.9 - Acute kidney failure, unspecified Status: Resolved Assessment and Plan: * resolved * watch renal function with aggressive diuresis (3) HTN (hypertension): Qualifiers: Hypertension type: unspecified Qualified Code(s): I10 - Essential (primary) hypertension Code(s): I10 - Essential (primary) hypertension Status: Acute Assessment and Plan: * reasonable control at this time * follow hemodynamics (4) Acute appendicitis: Qualifiers: Acute appendicitis type: unspecified acute appendicitis type Qualified Code(s): K35.80 - Unspecified acute appendicitis Code(s): K35.80 - Unspecified acute appendicitis Status: Acute Assessment and Plan: * s/p hand assisted laproscopic appendectomy * complicated by abdominal abscess - s/p catheter placement by IR * on antibiotics * Surgery following Will continue to follow. Subjective Date/time seen: 05/05/21 10:13 Still feeling bloated (did have a small bowel movement) and making good urine output (with diuretics); still with purulent drainage from his abdominal drain; suboptimal oral intake still noted; Exam Narrative: Exam Narrative: General: WD/WN male in NAD Heart: normal S1 and S2; no rub Lungs: clear to auscultation Abdomen: mild distension; drain in place; positive bowel sounds Extremities: no cyanosis or clubbing; trace edema Skin: warm and dry Objective Data Vital Signs Vital Signs: Vital Signs Temp Pulse Resp BP Pulse Ox 05/05/21 09:41 81 18 05/05/21 09:33 69 20 05/05/21 08:15 67 109/53 L 96 05/05/21 08:00 65 05/05/21 05:18 36.0 C L 68 20 112/67 92 05/05/21 04:00 73 05/05/21 02:47 65 20 05/05/21 02:39 54 L 20 05/05/21 00:00 67 05/04/21 21:48 68 20 05/04/21 21:39 74 20 05/04/21 20:25 35.9 C L 76 20 125/63 93 05/04/21 20:00 73 05/04/21 18:02 76 05/04/21 16:00 66 05/04/21 14:48 89 20 05/04/21 14:36 66 20 05/04/21 14:15 36.1 C L 66 18 115/52 L 93 Intake/Output Intake/Output: Intake & Output 05/02/21 05/03/21 05/04/21 05/05/21 23:59 23:59 23:59 23:59 Intake Total 1150 2730 1620 610 Output Total 1455 2825 2625 1330 [facility] - -720 Meds/Results Medications: Active Medications Generic Name Dose Route Start Last Admin Trade Name Jjq PRN Reason Stop Dose Admin Acetaminophen 650 mg 05/01/21 18:39 05/03/21 11:22
[2021-05-05] MEDS: BISACODYL 10 MG SUPPOSITORY RECTAL (10:46)
[2021-05-05] MEDS: METOCLOPRAMIDE HCL INJ 10 MG/2 ML VIAL IV PUSH ×2 (10:47→17:46)
--- NOTE | 2021-05-05 13:45 | PM.IMPN ---
Progress Note: A&P Assessment and Plan (1) ANNE MARIE (acute kidney injury): Code(s): N17.9 - Acute kidney failure, unspecified Status: Resolved Assessment and Plan: Creat is 1.1 continue bp medications Nephrology rounding for anasarca (2) Acute appendicitis: Qualifiers: Acute appendicitis type: unspecified acute appendicitis type Qualified Code(s): K35.80 - Unspecified acute appendicitis Code(s): K35.80 - Unspecified acute appendicitis Status: Acute Assessment and Plan: His appendectomy with a retrocecal appendix, post op appendectomy Preoperative CT the abdomen showed gallbladder distention with stone in the gallbladder neck concerning for cholecystitis and ascites in R side of abdomen. Sp CT abdomen (3) Leukocytosis: Qualifiers: Leukocytosis type: unspecified Qualified Code(s): D72.829 - Elevated white blood cell count, unspecified Code(s): D72.829 - Elevated white blood cell count, unspecified Status: Acute Assessment and Plan: Pt is on IV ciprofloxacin and IV flagyl order BC as WCC remain high, wcc improving, follow cultures sp appendectomy Sp ct chest and ct abdomen sp ascitic drain Consult ID (4) Cholelithiasis: Qualifiers: Cholelithiasis location: gallbladder Cholecystitis presence: without cholecystitis Biliary obstruction: without biliary obstruction Qualified Code(s): K80.20 - Calculus of gallbladder without cholecystitis without obstruction Code(s): K80.20 - Calculus of gallbladder without cholecystitis without obstruction Status: Acute Assessment and Plan: Chronic with possible cholecystitis (5) Paroxysmal atrial fibrillation: Code(s): I48.0 - Paroxysmal atrial fibrillation Status: Acute Assessment and Plan: Continue sotalol Eliquis on hold sp drain placement can continue eliquis. (6) HTN (hypertension): Qualifiers: Hypertension type: unspecified Qualified Code(s): I10 - Essential (primary) hypertension Code(s): I10 - Essential (primary) hypertension Status: Acute Assessment and Plan: continue HTN medications Monitor BP (7) COPD (chronic obstructive pulmonary disease): Qualifiers: COPD type: unspecified COPD Qualified Code(s): J44.9 - Chronic obstructive pulmonary disease, unspecified Code(s): J44.9 - Chronic obstructive pulmonary disease, unspecified Status: Acute Assessment and Plan: Increase activity Increase hydration Encourage incentive spirometer BT, oral steroids and tessalon perles (8) KELLIE on CPAP: Code(s): G47.33 - Obstructive sleep apnea (adult) (pediatric); Z99.89 - Dependence on other enabling machines and devices Status: Acute Assessment and Plan: Auto titrating or home CPAP at night (9) Morbid obesity: Code(s): E66.01 - Morbid (severe) obesity due to excess calories Status: Acute Assessment and Plan: Encourage mobility (10) Ascites: Code(s): R18.8 - Other ascites Status: Acute Assessment and Plan: Post op ascites continue to watch. echo ordered, watching uo, cmp, nephrology consulted sp drain placement and iv abx for possible intraabdominal infection (11) Vomiting bile: Code(s): R11.14 - Bilious vomiting Status: Acute Assessment and Plan: Pt vomiting bile refusing NG tube, KUB stat ordered, surgery notified, continue wit suppositories await results Subjective Date/time seen: 05/05/21 13:45 Interval history: Dale Barros is a 70 year old male who was admitted by Dr. Luis on April 27 for abdominal pain and acute appendicitis. Pt is post op, pt is doing ok apart from ascites in abdomen and pleural effusion. Sp ct abdomen and chest. Pt has percutaneous drain in situ. Pt had some ileus on xray, encourage suppository and laxatives. Pt is advised to ambulate and sit in the c
[2021-05-05] MEDS: lisinopriL 10 MG TABLET PO (20:05)
[2021-05-05] MEDS: PRAVASTATIN SODIUM 20 MG TABLET 40 MG PO (20:06)
[2021-05-06] VITALS (11 sets, daily range): BP systolic 105–107; BP diastolic 59–64; PULSE 62–88; RESP 18–20; TEMP 36.1–36.9; O2SAT 95–96
[2021-05-06] MEDS: METOCLOPRAMIDE HCL INJ 10 MG/2 ML VIAL IV PUSH ×4 (00:11→17:28)
[2021-05-06] MEDS: IPRATROPIUM BR 0.02% INH SOLN 0.5 MG/2.5 ML VIAL INHALATION ×3 (03:00→20:29)
[2021-05-06] MEDS: ALBUTEROL SULFATE NEB 2.5 MG/0.5 ML INH INHALATION ×3 (03:00→20:29)
[2021-05-06 05:34] LABS: Hematocrit 40.9 % (42.0-52.0); Hemoglobin 13.4 g/dL (14.0-18.0); Mean Corpuscular HGB Conc 32.8 g/dl (32-36); Mean Corpuscular Hemoglobin 29.7 pg (26-34); Mean Corpuscular Volume 90.7 fl (80-100); Mean Platelet Volume 11.4 fl (7.4-10.4); Platelet Count Result 388 k/mm3 (150-375); Red Blood Count 4.51 M/mm3 (4.6-6.20); Red Cell Distribution Width 13.7 % (11.5-14.5); White Blood Count 22.6 K/mm3 (4.5-10.0)
[2021-05-06] MEDS: metroNIDAZOLE 500 MG/ISO 100ML 500 MG/100 ML BAG 100 MG IVPB (05:45)
[2021-05-06 05:50] LABS: Anion Gap 10 mmol/L (8-16); Blood Urea Nitrogen 28 mg/dL (9-20); Carbon Dioxide 28 mmol/L (22-30); Chloride 94 mmol/L (98-107); Estimated CRCL calculation 89 ml/min; Estimated Glomerular Filt Rate > 60; Glucose 118 mg/dL (75-110); Potassium 4.1 mmol/L (3.4-5.0); Sodium 132 mmol/L (137-145)
--- NOTE | 2021-05-06 08:40 | PCRCNOTE ---
pt off floor/no tx given
[2021-05-06] MEDS: APIXABAN 5 MG TABLET PO ×2 (09:13→16:24)
[2021-05-06] MEDS: FAMOTIDINE 20 MG TABLET PO ×2 (09:13→21:01)
[2021-05-06] MEDS: BENZONATATE 100 MG CAPSULE PO ×3 (09:13→16:23)
[2021-05-06] MEDS: DOCUSATE SODIUM 100 MG CAPSULE PO ×2 (09:14→21:01)
[2021-05-06] MEDS: SOTALOL HCL 80 MG TABLET PO ×2 (09:14→16:25)
[2021-05-06] MEDS: DIGOXIN TAB 125 MCG TABLET PO (09:14)
--- NOTE | 2021-05-06 09:18 | WPDINFPN2 ---
Progress Note: A&P Assessment and Plan (1) Acute appendicitis: Qualifiers: Acute appendicitis type: unspecified acute appendicitis type Qualified Code(s): K35.80 - Unspecified acute appendicitis Code(s): K35.80 - Unspecified acute appendicitis Status: Acute Assessment and Plan: Acute appendicitis, complicated by abscess REC Midline and PipTazo x 10 days Subjective Date/time seen: 05/06/21 09:18 Objective Data Vital Signs Vital Signs: Vital Signs - 24 hr 05/05/21 09:33 05/05/21 09:41 05/05/21 12:00 Temperature Pulse Rate 69 81 73 Respiratory Rate 20 18 Blood Pressure Pulse Oximetry 05/05/21 14:00 05/05/21 14:40 05/05/21 14:48 Temperature 36.7 C Pulse Rate 77 67 56 L Respiratory Rate 20 18 18 Blood Pressure 112/67 Pulse Oximetry 98 05/05/21 16:00 05/05/21 17:47 05/05/21 20:00 Temperature Pulse Rate 70 68 68 Respiratory Rate Blood Pressure Pulse Oximetry 05/05/21 20:20 05/05/21 20:30 05/05/21 22:00 Temperature 36.1 C L Pulse Rate 65 66 68 Respiratory Rate 18 18 18 Blood Pressure 101/74 Pulse Oximetry 96 05/06/21 00:00 05/06/21 03:01 05/06/21 03:10 Temperature Pulse Rate 68 71 68 Respiratory Rate 18 18 Blood Pressure Pulse Oximetry 05/06/21 04:00 05/06/21 06:00 Temperature 36.2 C L Pulse Rate 62 64 Respiratory Rate 18 Blood Pressure 106/64 Pulse Oximetry 95 Intake/Output Intake/Output: Intake & Output 05/03/21 05/04/21 05/05/21 05/06/21 23:59 23:59 23:59 23:59 Intake Total 2730 1620 1650 950 Output Total 3559 2625 1330 1000 Balance -95 -1005 320 -50 Meds/Results Medications: Active Medications Generic Name Dose Route Start Last Admin Trade Name Freq PRN Reason Stop Dose Admin Acetaminophen 650 mg 05/01/21 18:39 05/03/21 11:22 Acetaminophen 325 Mg Tablet PO 650 mg Q6H PRN Administration Mild Pain (1-3) or Fever Hydrocodone Bitart/Acetaminophen 1 tab 04/29/21 07:04 05/05/21 21:58 Hydrocodone/Acetaminophen (*Crx) 10-325 Mg Tablet PO 1 tab Q4H PRN Administration Pain Rated 7-10 Albuterol 2.5 mg 05/01/21 02:28 05/06/21 08:40 Albuterol Sulfate Neb 2.5 Mg/0.5 Ml Inh INHALATION Not Given Q6HRT KEILY Albuterol 2.5 mg 05/01/21 02:27 Albuterol Sulfate Neb 2.5 Mg/0.5 Ml Inh INHALATION Q3HR PRN Shortness Of Breath Apixaban 5 mg 04/30/21 17:00 05/06/21 09:13 Apixaban 5 Mg Tablet PO 5 mg BID KEILY Administration Benzonatate 100 mg 04/30/21 17:00 05/06/21 09:13 Benzonatate 100 Mg Capsule PO 100 mg TID KEILY Administration Bumetanide 2 mg 05/03/21 17:00 05/06/21 09:13 Bumetanide Inj 1 Mg/4 Ml Vial IV PUSH 05/06/21 17:01 2 mg BID KEILY Administration Digoxin 125 mcg 04/27/21 11:45 05/06/21 09:14 Digoxin Tab 125 Mcg Tablet PO 125 mcg DAILY KEILY Administration Diltiazem HCl 240 mg 04/27/21 21:00 05/05/21 20:05 Diltiazem Hcl Cd 240 Mg Cap.Er.24h PO 240 mg HS KEILY Administration Docusate Sodium 100 mg 04/27/21 21:00 05/06/21 09:14 Docusate Sodium 100 Mg Capsule PO 100 mg Q12HR KEILY Administration Famotidine 20 mg 05/03/21 21:00 05/06/21 09:13 Famotidine 20 Mg Tablet PO 20 mg Q12HR KEILY Administration Hydromorphone HCl 1 mg 04/29/21 07:05 05/04/21 13:38 Hydromorphone Hcl Inj (*Crx) 1 Mg/Ml Syr IV PUSH 1 mg Q2H PRN Administration Breakthrough 7-10, after [place] Ipratropium [place] 0.5 mg 05/01/21 02:30 05/06/21 08:40 Ipratropium Br 0.02% Inh Soln 0.5 Mg/2.5 Ml Vial INHALATION Not Given Q6HRT [facility] Ipratropium [place] 0.5 mg 05/01/21 02:29 Ipratropium Br 0.02% Inh Soln 0.5 Mg/2.5 Ml Vial INHALATION Q3HRT PRN Shortness Of Breath Lisinopril 10 mg 04/27/21 21:00 05/05/21 20:05 Lisinopril 10 Mg Tablet PO 10 mg HS KEILY Administration Magnesium Oxide 400 mg 04/29/21 17:00 Magnesium Oxide 400 Mg Tablet PO BID KEILY
--- NOTE | 2021-05-06 10:55 | CONS_ITS ---
DATE OF CONSULTATION: 05/06/2021 REASON FOR CONSULTATION: Intraabdominal abscess. HISTORY OF PRESENT ILLNESS: A 70-year-old male admitted on April 27 with abdominal pain. He is found to have acute appendicitis, who was taken to the operating room on the . This is postop day #9. His operation was originally laparoscopic, but then converted in the middle of the operation to hand assisted, due to adhesions. There was no gross infection noted at time of operation. However, he has had postop leukocytosis and a repeat CT scan on April 30 shows small volume ascites. A fluid collection was drained by percutaneous catheter on the May 02. He has been on ciprofloxacin and metronidazole and consultation requested. He still has a pain in the right lower quadrant, not worse or better with any particular activities that he has noted. He has been on no antibiotics in the last 6 weeks for any other purpose. His postop course has otherwise been complicated by a postoperative ileus, leukocytosis, renal insufficiency, and a note of gallstones without acute cholecystitis demonstrated clinically or by nuclear scan. The patient denies fever, rigors, night sweats. ALLERGIES: NONE KNOWN. PRESENT MEDICATIONS: No immunosuppressants. HABITS: Ex-smoker. No alcohol. PAST MEDICAL HISTORY: PAF with radiofrequency ablation, gallstones, COPD, hypertension, morbid obesity, and KELLIE. FAMILY HISTORY: Not pertinent to his present illness. SOCIAL HISTORY: He lives locally. No family at the bedside. Usually sees Dr. Cespedes. REVIEW OF SYSTEMS: Abdominal distention, recovering appetite, though still on clear liquids. Review is otherwise negative 14 points. PHYSICAL EXAMINATION: GENERAL: Elderly male, appears younger than his actual age. No acute distress. VITAL SIGNS: He is afebrile and has been so consistently, pulse 64, respirations 18, O2 saturation 95%, and blood pressure 106/64. SKIN: Warm and dry. No rashes. No ulcerations. NODES: He has no axillary or cervical adenopathy. EENT: Paranasal sinuses normal to inspection, palpation. Poor dentition. The oral mucosa otherwise normal. Pupils are equal, round, and reactive to light. No conjunctival injection. NECK: Without mass, thyromegaly, meningismus. LUNGS: Clear to auscultation and percussion. BACK: No CVAT. CARDIAC: Regular rate and rhythm. No murmur, gallop, or rub. Pulses are 2+ and equal. ABDOMEN: Very distended and somewhat tympanitic. Mildly tender. Drain, right lower quadrant with medium brown fluid. No blood elsewhere. No masses. EXTREMITIES: No clubbing or cyanosis. He does have 2+ edema. LABORATORY DATA: White count 22.6, hemoglobin 13.4, which is stable. His white count has been high for a number of days. Hemoglobin 13.4, platelets of 380. No differential done recently, earlier showed a minimal left shift. Chemistry panels have shown persistent hyponatremia, low chloride, BUN 28, creatinine 1.0, glucose 118, albumin 3.4 most recently. His urinalysis, no evidence of infection. From the fluid aspirate on 05/02, his E coli, which could not be tested for susceptibility, also Bacteroides species, not B. fragilis. Blood culture from May 02, no growth 4 days. No microbiology collected at the time of his operation. Histopathology showed no acute inflammation. ASSESSMENT: 1. Clinical diagnosis of appendicitis, resected. 2. Right lower quadrant fluid collection, suspect abscess in association with his operative procedure. Microbiology as above. He may well have a quinolone resistant Escherichia coli. 3. Leukocytosis due to the above. Cholecystitis or other causes of his leukocytosis are less likely. 4. Morbid obesity. 5. Postoperative ileus. RECOMMENDATIONS: 1. Stop ab
--- NOTE | 2021-05-06 11:40 | PM.PNGS ---
Progress Note: A&P Assessment and Plan (1) Acute appendicitis: Qualifiers: Acute appendicitis type: unspecified acute appendicitis type Qualified Code(s): K35.80 - Unspecified acute appendicitis Code(s): K35.80 - Unspecified acute appendicitis Status: Acute Assessment and Plan: Pigtail drain with persistent purulence fluid. Continue IV antibiotics. (2) Leukocytosis: Qualifiers: Leukocytosis type: unspecified Qualified Code(s): D72.829 - Elevated white blood cell count, unspecified Code(s): D72.829 - Elevated white blood cell count, unspecified Status: Acute Assessment and Plan: White blood count still elevated. Infectious Disease following patient now. If no significant improvement, may consider repeat CT. (3) Ileus: Code(s): K56.7 - Ileus, unspecified Status: Acute Assessment and Plan: Reglan 10 mg IV Q 6 hours, Colace twice daily. Bowel function slowly returning. Will advance to full liquid diet today. If having worsening bloating or nausea, may need to consider Gastrografin small-bowel follow-through. Subjective Subjective Date/Time Seen: 05/06/21 11:40 Interval history: Patient has had 3 bowel movements since yesterday morning. Still experiencing some bloating and reflux/regurgitation. No fevers. Pain controlled. Up ambulating some. Exam GI: Inspection: distended and other (Pigtail drain with dark reddish brown output) GI Palp: Yes Firmness to palpation present (GI) and Yes Tenderness to palpation present (GI) (Mild generalized) Auscultation: Hypoactive bowel sounds present Objective Data Vital Signs Vital Signs: Vital Signs - 24 hr 05/05/21 12:00 05/05/21 14:00 05/05/21 14:40 Temperature 36.7 C Pulse Rate 73 77 67 Respiratory Rate 20 18 Blood Pressure 112/67 Pulse Oximetry 98 05/05/21 14:48 05/05/21 16:00 05/05/21 17:47 Temperature Pulse Rate 56 L 70 68 Respiratory Rate 18 Blood Pressure Pulse Oximetry 05/05/21 20:00 05/05/21 20:20 05/05/21 20:30 Temperature Pulse Rate 68 65 66 Respiratory Rate 18 18 Blood Pressure Pulse Oximetry 05/05/21 22:00 05/06/21 00:00 05/06/21 03:01 Temperature 36.1 C L Pulse Rate 68 68 71 Respiratory Rate 18 18 Blood Pressure 101/74 Pulse Oximetry 96 05/06/21 03:10 05/06/21 04:00 05/06/21 06:00 Temperature 36.2 C L Pulse Rate 68 62 64 Respiratory Rate 18 18 Blood Pressure 106/64 Pulse Oximetry 95 05/06/21 08:00 Temperature Pulse Rate 62 Respiratory Rate Blood Pressure Pulse Oximetry Intake/Output Intake/Output: Intake & Output 05/03/21 05/04/21 05/05/21 05/06/21 23:59 23:59 23:59 23:59 Intake Total 2730 1620 1650 950 Output Total 2825 2625 1330 1000 Balance -95 -1005 320 -50 Meds/Results Medications: Active Medications Generic Name Dose Route Start Last Admin Trade Name Freq PRN Reason Stop Dose Admin Acetaminophen 650 mg 05/01/21 18:39 05/03/21 11:22 Acetaminophen 325 Mg Tablet PO 650 mg Q6H PRN Administration Mild Pain (1-3) or Fever Hydrocodone Bitart/Acetaminophen 1 tab 04/29/21 07:04 05/05/21 21:58 Hydrocodone/Acetaminophen (*Crx) 10-325 Mg Tablet PO 1 tab Q4H PRN Administration Pain Rated 7-10 Albuterol 2.5 mg 05/01/21 02:28 05/06/21 08:40 Albuterol Sulfate Neb 2.5 Mg/0.5 Ml Inh INHALATION Not Given Q6HRT KEILY Albuterol 2.5 mg 05/01/21 02:27 Albuterol Sulfate Neb 2.5 Mg/0.5 Ml Inh INHALATION Q3HR PRN Shortness Of Breath Apixaban 5 mg 04/30/21 17:00 05/06/21 09:13 Apixaban 5 Mg Tablet PO 5 mg BID KEILY Administration Benzonatate 100 mg 04/30/21 17:00 05/06/21 09:13 Benzonatate 100 Mg Capsule PO 100 mg TID KEILY Administration Bumetanide 2 mg 05/03/21 17:00 05/05/21 17:46 Bumetanide Inj 1 Mg/4 Ml Vial IV PUSH 05/06/21 17:01 2 mg BID KEILY Administration Digoxin 125 mcg 04/27/21 11:45
[2021-05-06] MEDS: BUMETANIDE INJ 1 MG/4 ML VIAL 2 MG IV PUSH ×2 (13:37→17:29)
--- NOTE | 2021-05-06 13:49 | P.PNNP_ITS ---
Progress Note: A&P Assessment and Plan (1) Anasarca: Code(s): R60.1 - Generalized edema Status: Acute Assessment and Plan: * does not appear related to his kidneys * no evidence of proteinuria * does have KELLIE which can make him susceptible to this issue * is this just third-spacing secondary to abdominal surgery and low albumin worsened by recent IVF resuscitation?? * Echo noted -- evidence of pulmonary HTN * on IV bumex with PRN use of metolazone as well * follow I/Os and exam * will likely cut back on diuretic therapy tomorrow for fear of precipitation of volume depletion given suboptimal oral intake (2) ANNE MARIE (acute kidney injury): Code(s): N17.9 - Acute kidney failure, unspecified Status: Resolved Assessment and Plan: * resolved * watch renal function with aggressive diuresis (3) HTN (hypertension): Qualifiers: Hypertension type: unspecified Qualified Code(s): I10 - Essential (primary) hypertension Code(s): I10 - Essential (primary) hypertension Status: Acute Assessment and Plan: * reasonable control at this time * follow hemodynamics (4) Acute appendicitis: Qualifiers: Acute appendicitis type: unspecified acute appendicitis type Qualified Code(s): K35.80 - Unspecified acute appendicitis Code(s): K35.80 - Unspecified acute appendicitis Status: Acute Assessment and Plan: * s/p hand assisted laproscopic appendectomy * complicated by abdominal abscess - s/p catheter placement by IR * on antibiotics as outlined by Infectious Disease * Surgery following Will continue to follow. Subjective Date/time seen: 05/06/21 13:49 Bowels seems to be doing better (has had a few bowel movements in the last 24 hours) but he still feels bloated in general although it seems better overall; no issues/problems overnight or earlier today; no other acute complaints voiced at the time of my visit. Exam Narrative: Exam Narrative: General: WD/WN male in NAD Heart: normal S1 and S2; no rub Lungs: clear to auscultation Abdomen: mild distension; drain in place; positive bowel sounds Extremities: no cyanosis or clubbing; trace edema Skin: warm and intact Objective Data Vital Signs Vital Signs: Vital Signs Temp Pulse Resp BP Pulse Ox 05/06/21 08:00 62 05/06/21 06:00 36.2 C L 64 18 106/64 95 05/06/21 04:00 62 05/06/21 03:10 68 18 05/06/21 03:01 71 18 05/06/21 00:00 68 05/05/21 22:00 36.1 C L 68 18 101/74 96 05/05/21 20:30 66 18 05/05/21 20:20 65 18 05/05/21 20:00 68 05/05/21 17:47 68 05/05/21 16:00 70 Intake/Output Intake/Output: Intake & Output 05/03/21 05/04/21 05/05/21 05/06/21 23:59 23:59 23:59 23:59 Intake Total 2730 1620 1650 1310 Output Total 2825 2625 1330 1000 Balance -95 -1005 320 310 Meds/Results Medications: Active Medications Generic Name Dose Route Start Last Admin Trade Name Freq PRN Reason Stop Dose Admin Acetaminophen 650 mg 05/01/21 18:39 05/03/21 11:22 Acetaminophen 325 Mg Tablet PO 650 mg Q6H PRN Administration Mild Pain (1-3) or Fever Hydrocodone Bitart/Acetaminophen 1 tab 05
--- NOTE | 2021-05-06 13:49 | PM.PNNEP ---
Progress Note: A&P Assessment and Plan (1) Anasarca: Code(s): R60.1 - Generalized edema Status: Acute Assessment and Plan: does not appear related to his kidneys no evidence of proteinuria does have KELLIE which can make him susceptible to this issue is this just third-spacing secondary to abdominal surgery and low albumin worsened by recent IVF resuscitation?? Echo noted -- evidence of pulmonary HTN on IV bumex with PRN use of metolazone as well follow I/Os and exam will likely cut back on diuretic therapy tomorrow for fear of precipitation of volume depletion given suboptimal oral intake (2) ANNE MARIE (acute kidney injury): Code(s): N17.9 - Acute kidney failure, unspecified Status: Resolved Assessment and Plan: resolved watch renal function with aggressive diuresis (3) HTN (hypertension): Qualifiers: Hypertension type: unspecified Qualified Code(s): I10 - Essential (primary) hypertension Code(s): I10 - Essential (primary) hypertension Status: Acute Assessment and Plan: reasonable control at this time follow hemodynamics (4) Acute appendicitis: Qualifiers: Acute appendicitis type: unspecified acute appendicitis type Qualified Code(s): K35.80 - Unspecified acute appendicitis Code(s): K35.80 - Unspecified acute appendicitis Status: Acute Assessment and Plan: s/p hand assisted laproscopic appendectomy complicated by abdominal abscess - s/p catheter placement by IR on antibiotics as outlined by Infectious Disease Surgery following Will continue to follow. Subjective Date/time seen: 05/06/21 13:49 Bowels seems to be doing better (has had a few bowel movements in the last 24 hours) but he still feels bloated in general although it seems better overall; no issues/problems overnight or earlier today; no other acute complaints voiced at the time of my visit. Exam Narrative: Exam Narrative: General: WD/WN male in NAD Heart: normal S1 and S2; no rub Lungs: clear to auscultation Abdomen: mild distension; drain in place; positive bowel sounds Extremities: no cyanosis or clubbing; trace edema Skin: warm and intact Objective Data Vital Signs Vital Signs: Vital Signs Temp Pulse Resp BP Pulse Ox 05/06/21 08:00 62 05/06/21 06:00 36.2 C L 64 18 106/64 95 05/06/21 04:00 62 05/06/21 03:10 68 18 06/06/21 03:01 71 18 05/06/21 00:00 68 05/05/21 22:00 36.1 C L 68 18 101/74 96 05/05/21 20:30 66 18 05/05/21 20:20 65 18 05/05/21 20:00 68 05/05/21 17:47 68 05/05/21 16:00 70 Intake/Output Intake/Output: Intake & Output 05/03/21 05/04/21 05/05/21 05/06/21 23:59 23:59 23:59 23:59 Intake Total 2730 1620 1650 1310 Output Total 2825 2625 1330 1000 Balance -95 -1005 320 310 Meds/Results Medications: Active Medications Generic Name Dose Route Start Last Admin Trade Name Freq PRN Reason Stop Dose Admin Acetaminophen 650 mg 05/01/21 18:39 05/03/21 11:22 Acetaminophen 325 Mg Tablet PO 650 mg Q6H PRN Administration Mild Pain (1-3) or Fever Hydrocodone Bitart/Acetaminophen 1 tab 04/29/21 07:04 05/05/21 21:58 Hydrocodone/Acetaminophen (*Crx) 10-325 Mg Tablet PO 1 tab Q4H PRN Administration Pain Rated 7-10 Albuterol 2.5 mg 05/01/21 02:28 05/06/21 14:21 Albuterol Sulfate Neb 2.5 Mg/0.5 Ml Inh INHALATION 2.5 mg Q6HRT KEILY Administration Albuterol 2.5 mg 05/01/21 02:27 Albuterol Sulfate Neb 2.5 Mg/0.5 Ml Inh INHALATION Q3HR PRN Shortness Of Breath Apixaban 5 mg 04/30/21 17:00 05/06/21 09:13 Apixaban 5 Mg Tablet PO 5 mg BID KEILY Administration Benzonatate 100 mg 04/30/21 17:00 05/06/21 13:37 Benzonatate 100 Mg Capsule PO 100 mg TID KEILY Administration Bumetanide 2 mg 05/03/21 17:00 05/06/21 13:37 Bumetanide Inj 1 Mg/4 Ml Vial IV PUS
[2021-05-06] MEDS: SALINE LOCK FLUSH 10 ML IV PUSH ×2 (14:00→21:01)
--- NOTE | 2021-05-06 15:29 | PM.IMPN ---
Progress Note: A&P Assessment and Plan (1) ANNE MARIE (acute kidney injury): Code(s): N17.9 - Acute kidney failure, unspecified Status: Resolved Assessment and Plan: Creat is 1.0 ANNE MARIE resolved Nephrology rounding for anasarca (2) Acute appendicitis: Qualifiers: Acute appendicitis type: unspecified acute appendicitis type Qualified Code(s): K35.80 - Unspecified acute appendicitis Code(s): K35.80 - Unspecified acute appendicitis Status: Acute Assessment and Plan: His appendectomy with a retrocecal appendix, post op appendectomy Preoperative CT the abdomen showed gallbladder distention with stone in the gallbladder neck concerning for cholecystitis and ascites in R side of abdomen. Pt found to have intraabdominal abscess with positive BC (3) Leukocytosis: Qualifiers: Leukocytosis type: unspecified Qualified Code(s): D72.829 - Elevated white blood cell count, unspecified Code(s): D72.829 - Elevated white blood cell count, unspecified Status: Acute Assessment and Plan: Pt is on IV zosyn seen BY ID sp appendectomy Sp ct chest and ct abdomen sp ascitic drain Consult ID (4) Cholelithiasis: Qualifiers: Cholelithiasis location: gallbladder Cholecystitis presence: without cholecystitis Biliary obstruction: without biliary obstruction Qualified Code(s): K80.20 - Calculus of gallbladder without cholecystitis without obstruction Code(s): K80.20 - Calculus of gallbladder without cholecystitis without obstruction Status: Acute Assessment and Plan: Chronic with possible cholecystitis (5) Paroxysmal atrial fibrillation: Code(s): I48.0 - Paroxysmal atrial fibrillation Status: Acute Assessment and Plan: Continue sotalol Eliquis on hold sp drain placement can continue eliquis. (6) HTN (hypertension): Qualifiers: Hypertension type: unspecified Qualified Code(s): I10 - Essential (primary) hypertension Code(s): I10 - Essential (primary) hypertension Status: Acute Assessment and Plan: continue HTN medications Monitor BP (7) COPD (chronic obstructive pulmonary disease): Qualifiers: COPD type: unspecified COPD Qualified Code(s): J44.9 - Chronic obstructive pulmonary disease, unspecified Code(s): J44.9 - Chronic obstructive pulmonary disease, unspecified Status: Acute Assessment and Plan: Increase activity Increase hydration Encourage incentive spirometer BT, oral steroids and tessalon perles (8) KELLIE on CPAP: Code(s): G47.33 - Obstructive sleep apnea (adult) (pediatric); Z99.89 - Dependence on other enabling machines and devices Status: Acute Assessment and Plan: Auto titrating or home CPAP at night (9) Morbid obesity: Code(s): E66.01 - Morbid (severe) obesity due to excess calories Status: Acute Assessment and Plan: Encourage mobility (10) Ascites: Code(s): R18.8 - Other ascites Status: Acute Assessment and Plan: Post op ascites continue to watch. echo ordered, watching uo, cmp, nephrology consulted sp drain placement and iv abx for possible intraabdominal infection (11) Vomiting bile: Code(s): R11.14 - Bilious vomiting Status: Acute Assessment and Plan: Pt vomiting bile refusing NG tube, KUB stat ordered, surgery notified, continue wit suppositories await results Subjective Date/time seen: 05/06/21 15:29 Interval history: Dale Barros is a 70 year old male who was admitted by Dr. Luis on April 27 for abdominal pain and acute appendicitis. Pt is post op, appendectomy. Pt has percutaneous drain in situ. Pt had some ileus on xray, encourage suppository and laxatives. Pt found to have intraabdominal abscess. Pt is advised to ambulate and sit in the chair. Review of Systems Review of Systems: All systems reviewed & are
[2021-05-06] MEDS: HYDROcodone/acetaminophen (*CRX) 10-325 MG TABLET 1 TAB PO (16:22)
[2021-05-06] MEDS: lisinopriL 10 MG TABLET PO (21:01)
[2021-05-06] MEDS: PRAVASTATIN SODIUM 20 MG TABLET 40 MG PO (21:01)
[2021-05-07] VITALS (15 sets, daily range): BP systolic 95–100; BP diastolic 41–68; PULSE 60–96; RESP 16–20; TEMP 35.8–36.8; O2SAT 96
[2021-05-07] MEDS: METOCLOPRAMIDE HCL INJ 10 MG/2 ML VIAL IV PUSH ×5 (00:05→23:56)
[2021-05-07] MEDS: ALBUTEROL SULFATE NEB 2.5 MG/0.5 ML INH INHALATION ×4 (02:03→19:37)
[2021-05-07] MEDS: IPRATROPIUM BR 0.02% INH SOLN 0.5 MG/2.5 ML VIAL INHALATION ×4 (02:03→19:37)
[2021-05-07 04:35] LABS: Hematocrit 37.2 % (42.0-52.0); Hemoglobin 12.2 g/dL (14.0-18.0); Mean Corpuscular HGB Conc 32.8 g/dl (32-36); Mean Corpuscular Hemoglobin 29.3 pg (26-34); Mean Corpuscular Volume 89.4 fl (80-100); Mean Platelet Volume 11.5 fl (7.4-10.4); Platelet Count Result 463 k/mm3 (150-375); Red Blood Count 4.16 M/mm3 (4.6-6.20); Red Cell Distribution Width 13.6 % (11.5-14.5); White Blood Count 22.1 K/mm3 (4.5-10.0)
[2021-05-07 04:45] LABS: Anion Gap 7 mmol/L (8-16); Blood Urea Nitrogen 25 mg/dL (9-20); Calcium 7.9 mg/dL (8.4-10.2); Carbon Dioxide 33 mmol/L (22-30); Chloride 91 mmol/L (98-107); Estimated CRCL calculation 75 ml/min; Estimated Glomerular Filt Rate 60; Glucose 141 mg/dL (75-110); Potassium 4.3 mmol/L (3.4-5.0); Sodium 131 mmol/L (137-145)
[2021-05-07] MEDS: SALINE LOCK FLUSH 10 ML IV PUSH ×3 (06:08→20:58)
[2021-05-07] MEDS: ACETAMINOPHEN 325 MG TABLET 650 MG PO ×2 (09:00→16:32)
[2021-05-07] MEDS: FAMOTIDINE 20 MG TABLET PO ×2 (09:00→20:54)
[2021-05-07] MEDS: APIXABAN 5 MG TABLET PO ×2 (09:00→16:32)
[2021-05-07] MEDS: BENZONATATE 100 MG CAPSULE PO ×3 (09:01→16:33)
[2021-05-07] MEDS: DOCUSATE SODIUM 100 MG CAPSULE PO ×2 (09:01→20:54)
--- NOTE | 2021-05-07 10:40 | PCNFU ---
Nutrition Follow-Up Complete: Nutrition Diagnosis: Inadequate oral intake related to abdominal pain and no appetite as evidenced by a completition of 5% of meals. Nutrition Goal: Have patient meet nutritional needs. Goal in progress, patient is consuming an average of 50% of meals. Nutrition recommendation: Continue with the Full liquid diet. Last recorded weight is 136.8 kg. Recommend obtaining new weight. Bowel Motility: Last documented on 05/06. Labs Reviewed: Hgb (12.2), Hct (37.2), Na (131), BUN (25), Glu (141) Meds Noted: Eliquis, Fountain, Cipro, Digoxin, Colace, Prinivil, Mag-Ox, Benzonatate, Diltiazem, Reglan, Atrovent, Zofran, Sodium Chloride, Sotalol Additional Notes: Patient reports less pain and inflammation, but still does not have an appetite. Patient has made progress since last week, currently he is consuming 50% of meals. Will follow up in 5 days.
--- NOTE | 2021-05-07 11:11 | PCNSR ---
On 05/07/21, the student, Tabatha eMi, provided care and completed [facility] documentation on this patient. I have reviewed the student's documentation and agree with the findings.
--- NOTE | 2021-05-07 12:58 | PM.IMPN ---
Progress Note: A&P Assessment and Plan (1) ANNE MARIE (acute kidney injury): Code(s): N17.9 - Acute kidney failure, unspecified Status: Resolved Assessment and Plan: Creat is 1.2 Diuretics stopped Nephrology rounding for anasarca (2) Acute appendicitis: Qualifiers: Acute appendicitis type: unspecified acute appendicitis type Qualified Code(s): K35.80 - Unspecified acute appendicitis Code(s): K35.80 - Unspecified acute appendicitis Status: Acute Assessment and Plan: His appendectomy with a retrocecal appendix, post op appendectomy Preoperative CT the abdomen showed gallbladder distention with stone in the gallbladder neck concerning for cholecystitis and ascites in R side of abdomen. Pt found to have intraabdominal abscess with positive BC (3) Leukocytosis: Qualifiers: Leukocytosis type: unspecified Qualified Code(s): D72.829 - Elevated white blood cell count, unspecified Code(s): D72.829 - Elevated white blood cell count, unspecified Status: Acute Assessment and Plan: Pt is on IV zosyn seen BY ID sp appendectomy Sp ct chest and ct abdomen sp ascitic drain Consult ID (4) Cholelithiasis: Qualifiers: Cholelithiasis location: gallbladder Cholecystitis presence: without cholecystitis Biliary obstruction: without biliary obstruction Qualified Code(s): K80.20 - Calculus of gallbladder without cholecystitis without obstruction Code(s): K80.20 - Calculus of gallbladder without cholecystitis without obstruction Status: Acute Assessment and Plan: Chronic with possible cholecystitis (5) Paroxysmal atrial fibrillation: Code(s): I48.0 - Paroxysmal atrial fibrillation Status: Acute Assessment and Plan: Continue sotalol Eliquis on hold sp drain placement can continue eliquis. (6) HTN (hypertension): Qualifiers: Hypertension type: unspecified Qualified Code(s): I10 - Essential (primary) hypertension Code(s): I10 - Essential (primary) hypertension Status: Acute Assessment and Plan: continue HTN medications Monitor BP (7) COPD (chronic obstructive pulmonary disease): Qualifiers: COPD type: unspecified COPD Qualified Code(s): J44.9 - Chronic obstructive pulmonary disease, unspecified Code(s): J44.9 - Chronic obstructive pulmonary disease, unspecified Status: Acute Assessment and Plan: Increase activity Increase hydration Encourage incentive spirometer BT, oral steroids and tessalon perles (8) KELLIE on CPAP: Code(s): G47.33 - Obstructive sleep apnea (adult) (pediatric); Z99.89 - Dependence on other enabling machines and devices Status: Acute Assessment and Plan: Auto titrating or home CPAP at night (9) Morbid obesity: Code(s): E66.01 - Morbid (severe) obesity due to excess calories Status: Acute Assessment and Plan: Encourage mobility (10) Ascites: Code(s): R18.8 - Other ascites Status: Acute Assessment and Plan: Post op ascites continue to watch. echo ordered, watching uo, cmp, nephrology consulted sp drain placement and iv abx for possible intraabdominal infection, wcc still high, may benefit from repeat ct scan (11) Vomiting bile: Code(s): R11.14 - Bilious vomiting Status: Resolved Assessment and Plan: Pt had bowel movement after laxatives (12) Hypotension: Code(s): I95.9 - Hypotension, unspecified Status: Acute Assessment and Plan: Surgery team considering iv fluids as blood pressure is low. Subjective Date/time seen: 05/07/21 12:58 Interval history: Dale Barros is a 70 year old male who was admitted by Dr. Luis on April 27 for abdominal pain and acute appendicitis. Pt is post op, appendectomy. Pt has percutaneous drain in situ. Pt had a bowel movement. Pt found to have intraabdominal
--- NOTE | 2021-05-07 14:04 | PM.PNGS ---
Progress Note: A&P Assessment and Plan (1) Acute appendicitis: Qualifiers: Acute appendicitis type: unspecified acute appendicitis type Qualified Code(s): K35.80 - Unspecified acute appendicitis Code(s): K35.80 - Unspecified acute appendicitis Status: Acute Assessment and Plan: Pigtail drain in place still draining brown purulent fluid. Aerobic cultures show growth of E.Coli non-viable for susceptibility testing, and anaerobic preliminary results of bacteroides species. ID has been consulted, continue IV Zosyn. Continue to monitor perc pigtail drain. Slightly hypotensive this morning. Discussed with Hospitalist, who held his BP meds today. Patient has had poor oral intake and been diuresed over the past several days. He may be volume depleted. Discussed with Dr. Luis as well. Continue to monitor and may need to consider gentle IV fluid bolus if blood pressure continues to fall. (2) Leukocytosis: Qualifiers: Leukocytosis type: unspecified Qualified Code(s): D72.829 - Elevated white blood cell count, unspecified Code(s): D72.829 - Elevated white blood cell count, unspecified Status: Acute Assessment and Plan: White blood count still elevated. ID consulted and switched IV antibiotics to Zosyn yesterday. Will repeat labs again tomorrow and plan for CT abd/pelvis tomorrow to re-evaluate. (3) Ileus: Code(s): K56.7 - Ileus, unspecified Status: Acute Assessment and Plan: Seems to be improving. Having some bowel function. Continue Reglan IV and Colace. Will keep him on full liquids today. Still not having much oral intake or tolerating current diet well. Repeat CT scan planned for tomorrow. Additional Plan I have discussed the patient's case and plan of care with Dr. Luis. Subjective Subjective Date/Time Seen: 05/07/21 14:04 Post Op day: 10 Patient reports: no new complaints, still having pain (RLQ, slightly better than last week but remains persistent near perc drain), tolerating liquids well, voiding w/o difficulty, flatus, bowel movement (small liquid BM today and two large ones yesterday), nausea (intermittent) and afebrile Interval history: Patient seen today and reports feeling about the same as yesterday. Still having right-sided abdominal pain that is near the percutaneous drain. Still having some nausea, but no vomiting. Passing more gas and moving his bowels. He is on room air and has no specific respiratory complaints. Voiding without any issues. Per the nurse, his blood pressure was slightly low this morning and she called the Hospitalist who held his BP medications. Review of Systems Review of Systems: All systems reviewed & are unremarkable except as noted in HPI and below Constitutional: Constitutional: Reports as per HPI, Reports no additional constitutional complaints, Denies chills and Denies fever(s) Cardiovascular: Cardiovascular: Reports no additional cardiovascular complaints, Denies chest pain and Denies leg edema Respiratory: Respiratory: Reports no additional respiratory complaints, Denies cough and Denies dyspnea Gastrointestinal: Gastrointestinal: Reports as per HPI and Reports no additional gastrointestinal complaints Neurologic: Reports system reviewed and no additional complaints, except as documented, Denies Abnormal speech present and Denies focal weakness Exam Const: General: no acute distress and awake Nutritional Appearance: obese Orientation/consciousness: patient oriented x3 Resp: Effort & Inspection: normal respiratory effort Auscultation: diminished lung sounds bilateral in the lower lung silverio Cardio: Rate: regular rate Rhythm: regular rhythm GI: Inspection: Abdominal wall edema, distended, incision (abd incisions clean and dry, clint intact, no s/s infection), obesity and other (perc drain in right abd with brown purulent drainage) GI Palp: Yes Soft to palpation, Yes Tenderness to palpation presen
--- NOTE | 2021-05-07 15:54 | PM.PNNEP ---
Progress Note: A&P Assessment and Plan (1) Anasarca: Code(s): R60.1 - Generalized edema Status: Acute Assessment and Plan: does not appear related to his kidneys no evidence of proteinuria does have KELLIE which can make him susceptible to this issue is this just third-spacing secondary to abdominal surgery and low albumin worsened by recent IVF resuscitation?? Echo noted -- evidence of pulmonary HTN was on IV bumex but discontinued at this time if hypotension persists, agree with gentle IVFs follow I/Os and repeat labs (2) ANNE MARIE (acute kidney injury): Code(s): N17.9 - Acute kidney failure, unspecified Status: Resolved Assessment and Plan: resolved watch renal function given current hypotension (3) HTN (hypertension): Qualifiers: Hypertension type: unspecified Qualified Code(s): I10 - Essential (primary) hypertension Code(s): I10 - Essential (primary) hypertension Status: Acute Assessment and Plan: running on the lower side of normal follow hemodynamics (4) Acute appendicitis: Qualifiers: Acute appendicitis type: unspecified acute appendicitis type Qualified Code(s): K35.80 - Unspecified acute appendicitis Code(s): K35.80 - Unspecified acute appendicitis Status: Acute Assessment and Plan: s/p hand assisted laproscopic appendectomy complicated by abdominal abscess - s/p catheter placement by IR on antibiotics as outlined by Infectious Disease Surgery following Will continue to follow. Subjective Date/time seen: 05/07/21 15:54 Relative hypotension overnight and earlier today; given poor appetite and recent diuresis, BP medications as well as IV diuretics have been placed on hold; no other acute issues or problems voiced; seen by Infectious Disease yesterday with adjustment in antibiotics. Exam Narrative: Exam Narrative: General: WD/WN male in NAD Heart: normal S1 and S2; no rub Lungs: clear to auscultation Abdomen: mild distension; drain in place; positive bowel sounds Extremities: no cyanosis or clubbing; no edema Skin: warm and intact Objective Data Vital Signs Vital Signs: Vital Signs Temp Pulse Resp BP Pulse Ox 05/07/21 14:00 35.8 C L 65 16 100/68 96 05/07/21 13:51 76 18 05/07/21 10:13 67 98/62 L 05/07/21 09:16 96 20 05/07/21 09:11 67 05/07/21 09:10 67 06/07/21 09:07 67 20 05/07/21 08:55 96 05/07/21 06:00 36.8 C 65 18 95/60 L 96 05/07/21 02:10 75 18 05/07/21 02:00 66 18 05/06/21 22:00 36.1 C L 63 18 105/59 L 96 05/06/21 20:37 83 18 05/06/21 20:30 70 18 Intake/Output Intake/Output: Intake & Output 05/04/21 05/05/21 05/06/21 05/07/21 23:59 23:59 23:59 23:59 Intake Total 1620 1650 2400 2390 Output Total 2625 1330 2775 1875 Balance -1005 320 -375 515 Meds/Results Medications: Active Medications Generic Name Dose Route Start Last Admin Trade Name Freq PRN Reason Stop Dose Admin Acetaminophen 650 mg 05/01/21 18:39 05/07/21 16:32 Acetaminophen 325 Mg Tablet PO 650 mg Q6H PRN Administration Mild Pain (1-3) or Fever Hydrocodone Bitart/Acetaminophen 1 tab 04/29/21 07:04 05/06/21 16:22 Hydrocodone/Acetaminophen (*Crx) 10-325 Mg Tablet PO 1 tab Q4H PRN Administration Pain Rated 7-10 Albuterol 2.5 mg 05/01/21 02:28 05/07/21 13:49 Albuterol Sulfate Neb 2.5 Mg/0.5 Ml Inh INHALATION 2.5 mg Q6HRT KEILY Administration Albuterol 2.5 mg 05/01/21 02:27 Albuterol Sulfate Neb 2.5 Mg/0.5 Ml Inh INHALATION Q3HR PRN Shortness Of Breath Apixaban 5 mg 04/30/21 17:00 05/07/21 16:32 Apixaban 5 Mg Tablet PO 5 mg BID KEILY Administration Benzonatate 100 mg 04/30/21 17:00 05/07/21 16:33 Benzonatate 100 Mg Capsule PO 100 mg TID KEILY Administration Digoxin 125 mcg 04/27/21 11:45 05/07/21 09:10 Digoxin T
--- NOTE | 2021-05-07 15:54 | P.PNNP_ITS ---
Progress Note: A&P Assessment and Plan (1) Anasarca: Code(s): R60.1 - Generalized edema Status: Acute Assessment and Plan: * does not appear related to his kidneys * no evidence of proteinuria * does have KELLIE which can make him susceptible to this issue * is this just third-spacing secondary to abdominal surgery and low albumin worsened by recent IVF resuscitation?? * Echo noted -- evidence of pulmonary HTN * was on IV bumex but discontinued at this time * if hypotension persists, agree with gentle IVFs * follow I/Os and repeat labs (2) ANNE MARIE (acute kidney injury): Code(s): N17.9 - Acute kidney failure, unspecified Status: Resolved Assessment and Plan: * resolved * watch renal function given current hypotension (3) HTN (hypertension): Qualifiers: Hypertension type: unspecified Qualified Code(s): I10 - Essential (primary) hypertension Code(s): I10 - Essential (primary) hypertension Status: Acute Assessment and Plan: * running on the lower side of normal * follow hemodynamics (4) Acute appendicitis: Qualifiers: Acute appendicitis type: unspecified acute appendicitis type Qualified Code(s): K35.80 - Unspecified acute appendicitis Code(s): K35.80 - Unspecified acute appendicitis Status: Acute Assessment and Plan: * s/p hand assisted laproscopic appendectomy * complicated by abdominal abscess - s/p catheter placement by IR * on antibiotics as outlined by Infectious Disease * Surgery following Will continue to follow. Subjective Date/time seen: 05/07/21 15:54 Relative hypotension overnight and earlier today; given poor appetite and recent diuresis, BP medications as well as IV diuretics have been placed on hold; no other acute issues or problems voiced; seen by Infectious Disease yesterday with adjustment in antibiotics. Exam Narrative: Exam Narrative: General: WD/WN male in NAD Heart: normal S1 and S2; no rub Lungs: clear to auscultation Abdomen: mild distension; drain in place; positive bowel sounds Extremities: no cyanosis or clubbing; no edema Skin: warm and intact Objective Data Vital Signs Vital Signs: Vital Signs Temp Pulse Resp BP Pulse Ox 05/07/21 14:00 35.8 C L 65 16 100/68 96 05/07/21 13:51 76 18 05/07/21 10:13 67 98/62 L 05/07/21 09:16 96 20 05/07/21 09:11 67 05/07/21 09:10 67 05/07/21 09:07 67 20 05/07/21 08:55 96 05/07/21 06:00 36.8 C 65 18 95/60 L 96 05/07/21 02:10 75 18 05/07/21 02:00 66 18 05/06/21 22:00 36.1 C L 63 18 105/59 L 96 05/06/21 20:37 83 18 05/06/21 20:30 70 18 Intake/Output Intake/Output: Intake & Output 05/04/21 05/05/21 05/06/21 05/07/21 23:59 23:59 23:59 23:59 Intake Total 1620 1650 2400 2390 Output Total 2625 1330 2775 1875 Balance -1005 320 -599 515 Meds/Results Medications: Active Medications Generic Name Dose Route Start Last Admin Trade Name Freq PRN Reason Stop Dose Admin Acetaminophen 650 mg 05/01/21 18:39 05/07/21 16:32 Acetaminophen 325 Mg Tablet PO 650 mg Q6H PRN Administration Mild Pain (1-
[2021-05-07] MEDS: PRAVASTATIN SODIUM 20 MG TABLET 40 MG PO (20:54)
[2021-05-07] MEDS: HYDROcodone/acetaminophen (*CRX) 10-325 MG TABLET 1 TAB PO (21:00)
[2021-05-08] VITALS (16 sets, daily range): BP systolic 117–140; BP diastolic 51–82; PULSE 70–80; RESP 14–20; TEMP 36.2–36.6; O2SAT 97–98
[2021-05-08] MEDS: ALBUTEROL SULFATE NEB 2.5 MG/0.5 ML INH INHALATION ×4 (01:59→20:12)
[2021-05-08] MEDS: IPRATROPIUM BR 0.02% INH SOLN 0.5 MG/2.5 ML VIAL INHALATION ×4 (01:59→20:12)
[2021-05-08] MEDS: SALINE LOCK FLUSH 10 ML IV PUSH ×3 (05:45→20:36)
[2021-05-08] MEDS: METOCLOPRAMIDE HCL INJ 10 MG/2 ML VIAL IV PUSH ×4 (05:45→23:48)
[2021-05-08 06:01] LABS: Hematocrit 35.9 % (42.0-52.0); Hemoglobin 11.7 g/dL (14.0-18.0); Mean Corpuscular HGB Conc 32.6 g/dl (32-36); Mean Corpuscular Hemoglobin 29.2 pg (26-34); Mean Corpuscular Volume 89.5 fl (80-100); Mean Platelet Volume 11.5 fl (7.4-10.4); Platelet Count Result 500 k/mm3 (150-375); Red Blood Count 4.01 M/mm3 (4.6-6.20); Red Cell Distribution Width 13.6 % (11.5-14.5)
[2021-05-08 06:17] LABS: Anion Gap 8 mmol/L (8-16); Blood Urea Nitrogen 13 mg/dL (9-20); Calcium 7.5 mg/dL (8.4-10.2); Carbon Dioxide 29 mmol/L (22-30); Chloride 95 mmol/L (98-107); Estimated CRCL calculation 99 ml/min; Estimated Glomerular Filt Rate > 60; Glucose 124 mg/dL (75-110); Potassium 3.9 mmol/L (3.4-5.0); Sodium 132 mmol/L (137-145)
[2021-05-08] MEDS: DOCUSATE SODIUM 100 MG CAPSULE PO ×2 (08:20→20:35)
[2021-05-08] MEDS: DIGOXIN TAB 125 MCG TABLET PO (08:20)
[2021-05-08] MEDS: APIXABAN 5 MG TABLET PO ×2 (08:20→16:08)
[2021-05-08] MEDS: FAMOTIDINE 20 MG TABLET PO ×2 (08:21→20:35)
[2021-05-08] MEDS: BENZONATATE 100 MG CAPSULE PO ×3 (08:21→16:08)
[2021-05-08] MEDS: SOTALOL HCL 80 MG TABLET PO ×2 (08:21→16:08)
[2021-05-08] MEDS: ACETAMINOPHEN 325 MG TABLET 650 MG PO (08:34)
--- NOTE | 2021-05-08 09:16 | P.PNNP_ITS ---
Progress Note: A&P Assessment and Plan (1) Anasarca: Code(s): R60.1 - Generalized edema Status: Acute Assessment and Plan: * does not appear related to his kidneys * no evidence of proteinuria * does have KELLIE which can make him susceptible to this issue * is this just third-spacing secondary to abdominal surgery and low albumin worsened by recent IVF resuscitation?? * Echo noted -- evidence of pulmonary HTN * was on IV bumex but discontinued at this time * BP doing better but not opposed to gentle IVFs if needed * follow I/Os and repeat labs (2) ANNE MARIE (acute kidney injury): Code(s): N17.9 - Acute kidney failure, unspecified Status: Resolved Assessment and Plan: * resolved * watch renal function given issues with hypotension (3) HTN (hypertension): Qualifiers: Hypertension type: unspecified Qualified Code(s): I10 - Essential (prim darci) hypertension Code(s): I10 - Essential (primary) hypertension Status: Acute Assessment and Plan: * running on the lower side of normal but better this AM * BP medications on hold * follow hemodynamics (4) Acute appendicitis: Qualifiers: Acute appendicitis type: unspecified acute appendicitis type Qualified Code(s): K35.80 - Unspecified acute appendicitis Code(s): K35.80 - Unspecified acute appendicitis Status: Acute Assessment and Plan: * s/p hand assisted laproscopic appendectomy * complicated by abdominal abscess - s/p catheter placement by IR * on antibiotics as outlined by Infectious Disease * Surgery following Not much else to offer from renal perspective - will continue to follow from a distance. Subjective Date/time seen: 05/08/21 09:16 No apparent distress noted at this time aside from his on/off abdominal pain; to have repeat CT scan of abdomen to reassess status of abdominal abscess (drain in place already); having bowel movement and reasonable urine output; no other issues voiced currently. Exam Narrative: Exam Narrative: General: WD/WN male in NAD Heart: normal S1 and S2; no rub Lungs: clear to auscultation Abdomen: mild distension; drain in place; positive bowel sounds Extremities: no cyanosis or clubbing; no edema Skin: no rash or nodules Objective Data Vital Signs Vital Signs: Vital Signs Temp Pulse Resp BP Pulse Ox 05/08/21 08:21 80 05/08/21 08:20 80 05/08/21 06:00 36.6 C 77 20 117/51 L 98 05/08/21 02:06 70 14 05/08/21 02:00 74 14 05/07/21 22:00 36.0 C L 64 18 98/41 L 96 05/07/21 19:47 60 18 05/07/21 19:40 65 18 05/07/21 16:38 66 05/07/21 14:00 35.8 C L 65 16 100/68 96 05/07/21 13:51 76 18 05/07/21 10:13 67 98/62 L Intake/Output Intake/Output: Intake & Output 05/05/21 05/06/21 05/07/21 05/08/21 23:59 23:59 23:59 23:59 Intake Total 1650 2400 2440 100 Output Total 1330 2775 1940 1680 Balance 320 -621 500 -6690 Meds/Results Medications: Active Medications Generic Name Dose Route Start Last Admin Trade Name Jordana PRN Reason Stop Dose Admin Acetaminophen 650 mg 05/01/21 18:39 05/08/21 08:34 Acetaminophen 325 Mg Tablet PO 650 mg
--- NOTE | 2021-05-08 09:16 | PM.PNNEP ---
Progress Note: A&P Assessment and Plan (1) Anasarca: Code(s): R60.1 - Generalized edema Status: Acute Assessment and Plan: does not appear related to his kidneys no evidence of proteinuria does have KELLIE which can make him susceptible to this issue is this just third-spacing secondary to abdominal surgery and low albumin worsened by recent IVF resuscitation?? Echo noted -- evidence of pulmonary HTN was on IV bumex but discontinued at this time BP doing better but not opposed to gentle IVFs if needed follow I/Os and repeat labs (2) ANNE MARIE (acute kidney injury): Code(s): N17.9 - Acute kidney failure, unspecified Status: Resolved Assessment and Plan: resolved watch renal function given issues with hypotension (3) HTN (hypertension): Qualifiers: Hypertension type: unspecified Qualified Code(s): I10 - Essential (primary) hypertension Code(s): I10 - Essential (primary) hypertension Status: Acute Assessment and Plan: running on the lower side of normal but better this AM BP medications on hold follow hemodynamics (4) Acute appendicitis: Qualifiers: Acute appendicitis type: unspecified acute appendicitis type Qualified Code(s): K35.80 - Unspecified acute appendicitis Code(s): K35.80 - Unspecified acute appendicitis Status: Acute Assessment and Plan: s/p hand assisted laproscopic appendectomy complicated by abdominal abscess - s/p catheter placement by IR on antibiotics as outlined by Infectious Disease Surgery following Not much else to offer from renal perspective - will continue to follow from a distance. Subjective Date/time seen: 05/08/21 09:16 No apparent distress noted at this time aside from his on/off abdominal pain; to have repeat CT scan of abdomen to reassess status of abdominal abscess (drain in place already); having bowel movement and reasonable urine output; no other issues voiced currently. Exam Narrative: Exam Narrative: General: WD/WN male in NAD Heart: normal S1 and S2; no rub Lungs: clear to auscultation Abdomen: mild distension; drain in place; positive bowel sounds Extremities: no cyanosis or clubbing; no edema Skin: no rash or nodules Objective Data Vital Signs Vital Signs: Vital Signs Temp Pulse Resp BP Pulse Ox 05/08/21 08:21 80 05/08/21 08:20 80 05/08/21 06:00 36.6 C 77 20 117/51 L 98 05/08/21 02:06 70 14 05/08/21 02:00 74 14 05/07/21 22:00 36.0 C L 64 18 98/41 L 96 05/07/21 19:47 60 18 05/07/21 19:40 65 18 05/07/21 16:38 66 05/07/21 14:00 35.8 C L 65 16 100/68 96 05/07/21 13:51 76 18 05/07/21 10:13 67 98/62 L Intake/Output Intake/Output: Intake & Output 05/05/21 05/06/21 05/07/21 05/08/21 23:59 23:59 23:59 23:59 Intake Total 1650 2400 2440 100 Output Total 1330 2775 1940 1680 Balance 320 -230 500 -5440 Meds/Results Medications: Active Medications Generic Name Dose Route Start Last Admin Trade Name Freq PRN Reason Stop Dose Admin Acetaminophen 650 mg 05/01/21 18:39 05/08/21 08:34 Acetaminophen 325 Mg Tablet PO 650 mg Q6H PRN Administration Mild Pain (1-3) or Fever Hydrocodone Bitart/Acetaminophen 1 tab 04/29/21 07:04 05/07/21 21:00 Hydrocodone/Acetaminophen (*Crx) 10-325 Mg Tablet PO 1 tab Q4H PRN Administration Pain Rated 7-10 Albuterol 2.5 mg 05/01/21 02:28 05/08/21 01:59 Albuterol Sulfate Neb 2.5 Mg/0.5 Ml Inh INHALATION 2.5 mg Q6HRT KEILY Administration Albuterol 2.5 mg 05/01/21 02:27 Albuterol Sulfate Neb 2.5 Mg/0.5 Ml Inh INHALATION Q3HR PRN Shortness Of Breath Apixaban 5 mg 04/30/21 17:00 05/08/21 08:20 Apixaban 5 Mg Tablet PO 5 mg BID KEILY Administration Benzonatate 100 mg 04/30/21 17:00 05/08/21 08:21 Benzonatate 100 Mg Capsule PO 100 mg TID [facility] Administratio
--- NOTE | 2021-05-08 10:31 | PM.PNGS ---
Progress Note: A&P Assessment and Plan (1) Acute appendicitis: Qualifiers: Acute appendicitis type: unspecified acute appendicitis type Qualified Code(s): K35.80 - Unspecified acute appendicitis Code(s): K35.80 - Unspecified acute appendicitis Status: Acute Assessment and Plan: better, cont to encourage OOB/IS, ADAT, cont abx, drain (2) Ileus: Code(s): K56.7 - Ileus, unspecified Status: Acute Assessment and Plan: slowly resolving, cont OOB, ADAT (3) Leukocytosis: Qualifiers: Leukocytosis type: unspecified Qualified Code(s): D72.829 - Elevated white blood cell count, unspecified Code(s): D72.829 - Elevated white blood cell count, unspecified Status: Acute Assessment and Plan: cont Zosyn per ID, WBC 16 k, f/u CT Subjective Subjective Date/Time Seen: 05/08/21 10:31 feels a little better, still c soreness on R upper side, + multiple liquid bowel movts Review of Systems Review of Systems: All systems reviewed & are unremarkable except as noted in HPI and below Exam Const: General: cooperative, comfortable and no acute distress Orientation/consciousness: patient oriented x3 Resp: Effort & Inspection: normal respiratory effort Auscultation: diminished lung sounds Cardio: Rate: regular rate Rhythm: regular rhythm GI: Inspection: normal to inspection, distended and incision GI Palp: Yes Soft to palpation, Yes Tenderness to palpation present (GI) and No Guarding due to palpation present (GI) Other: soft, mod dist, jenn TTP, mod TTP RUQ, RAFIQ c s/s output Objective Data Vital Signs Vital Signs: Vital Signs - 24 hr 05/07/21 13:51 05/07/21 14:00 05/07/21 16:38 Temperature 35.8 C L Pulse Rate 76 65 66 Respiratory Rate 18 16 Blood Pressure 100/68 Pulse Oximetry 96 05/07/21 19:40 05/07/21 19:47 05/07/21 22:00 Temperature 36.0 C L Pulse Rate 65 60 64 Respiratory Rate 18 18 18 Blood Pressure 98/41 L Pulse Oximetry 96 05/08/21 02:00 05/08/21 02:06 05/08/21 06:00 Temperature 36.6 C Pulse Rate 74 70 77 Respiratory Rate 14 14 20 Blood Pressure 117/51 L Pulse Oximetry 98 05/08/21 08:20 05/08/21 08:21 05/08/21 09:39 Temperature Pulse Rate 80 80 72 Respiratory Rate 14 Blood Pressure Pulse Oximetry 05/08/21 09:47 Temperature Pulse Rate 72 Respiratory Rate 14 Blood Pressure Pulse Oximetry Intake/Output Intake/Output: Intake & Output 05/05/21 05/06/21 05/07/21 05/08/21 23:59 23:59 23:59 23:59 Intake Total 1650 2400 2440 100 Output Total 1330 2775 1940 1680 Balance 320 -375 500 -1580 Meds/Results Medications: Active Medications Generic Name Dose Route Start Last Admin Trade Name Freq PRN Reason Stop Dose Admin Acetaminophen 650 mg 05/01/21 18:39 05/08/21 08:34 Acetaminophen 325 Mg Tablet PO 650 mg Q6H PRN Administration Mild Pain (1-3) or Fever Hydrocodone Bitart/Acetaminophen 1 tab 04/29/21 07:04 05/07/21 21:00 Hydrocodone/Acetaminophen (*Crx) 10-325 Mg Tablet PO 1 tab Q4H PRN Administration Pain Rated 7-10 Albuterol 2.5 mg 05/01/21 02:28 05/08/21 09:39 Albuterol Sulfate Neb 2.5 Mg/0.5 Ml Inh INHALATION 2.5 mg Q6HRT KEILY Administration Albuterol 2.5 mg 05/01/21 02:27 Albuterol Sulfate Neb 2.5 Mg/0.5 Ml Inh INHALATION Q3HR PRN Shortness Of Breath Apixaban 5 mg 04/30/21 17:00 05/08/21 08:20 Apixaban 5 Mg Tablet PO 5 mg BID KEILY Administration Benzonatate 100 mg 04/30/21 17:00 05/08/21 08:21 Benzonatate 100 Mg Capsule PO 100 mg TID KEILY Administration Digoxin 125 mcg 04/27/21 11:45 05/08/21 08:20 Digoxin Tab 125 Mcg Tablet PO 125 mcg DAILY KEILY Administration Diltiazem HCl 240 mg 04/27/21 21:00 05/06/21 21:01 Diltiazem Hcl Cd 240 Mg Cap.Er.24h PO 240 mg HS KEILY Administration Docusate Sodium 100 mg 04/27/21 21:00 05/08/21 08:20 Docusate Sodium 100 Mg Capsul
--- NOTE | 2021-05-08 12:01 | PM.IMPN ---
Progress Note: A&P Assessment and Plan (1) ANNE MARIE (acute kidney injury): Code(s): N17.9 - Acute kidney failure, unspecified Status: Resolved Assessment and Plan: Creat is 0.9 Diuretics stopped Nephrology rounding for anasarca (2) Acute appendicitis: Qualifiers: Acute appendicitis type: unspecified acute appendicitis type Qualified Code(s): K35.80 - Unspecified acute appendicitis Code(s): K35.80 - Unspecified acute appendicitis Status: Acute Assessment and Plan: His appendectomy with a retrocecal appendix, post op appendectomy Preoperative CT the abdomen showed gallbladder distention with stone in the gallbladder neck concerning for cholecystitis and ascites in R side of abdomen. Pt found to have intraabdominal abscess with positive BC Pt seen By ID started on iv Zosyn (3) Leukocytosis: Qualifiers: Leukocytosis type: unspecified Qualified Code(s): D72.829 - Elevated white blood cell count, unspecified Code(s): D72.829 - Elevated white blood cell count, unspecified Status: Acute Assessment and Plan: Wcc improving Pt is on IV zosyn seen BY ID sp appendectomy Sp ct chest and ct abdomen sp ascitic drain Consult ID (4) Cholelithiasis: Qualifiers: Cholelithiasis location: gallbladder Cholecystitis presence: without cholecystitis Biliary obstruction: without biliary obstruction Qualified Code(s): K80.20 - Calculus of gallbladder without cholecystitis without obstruction Code(s): K80.20 - Calculus of gallbladder without cholecystitis without obstruction Status: Acute Assessment and Plan: Chronic with possible cholecystitis (5) Paroxysmal atrial fibrillation: Code(s): I48.0 - Paroxysmal atrial fibrillation Status: Acute Assessment and Plan: Continue sotalol Eliquis on hold sp drain placement can continue eliquis. can be restarted (6) HTN (hypertension): Qualifiers: Hypertension type: unspecified Qualified Code(s): I10 - Essential (primary) hypertension Code(s): I10 - Essential (primary) hypertension Status: Acute Assessment and Plan: continue HTN medications Monitor BP (7) COPD (chronic obstructive pulmonary disease): Qualifiers: COPD type: unspecified COPD Qualified Code(s): J44.9 - Chronic obstructive pulmonary disease, unspecified Code(s): J44.9 - Chronic obstructive pulmonary disease, unspecified Status: Acute Assessment and Plan: Increase activity Increase hydration Encourage incentive spirometer BT, oral steroids and tessalon perles (8) KELLIE on CPAP: Code(s): G47.33 - Obstructive sleep apnea (adult) (pediatric); Z99.89 - Dependence on other enabling machines and devices Status: Acute Assessment and Plan: Auto titrating or home CPAP at night (9) Morbid obesity: Code(s): E66.01 - Morbid (severe) obesity due to excess calories Status: Acute Assessment and Plan: Encourage mobility (10) Ascites: Code(s): R18.8 - Other ascites Status: Acute Assessment and Plan: Post op ascites continue to watch. echo ordered, watching uo, cmp, nephrology consulted sp drain placement and iv abx for possible intraabdominal infection, rpt ct scan pt may benefit from larger drain (11) Vomiting bile: Code(s): R11.14 - Bilious vomiting Status: Resolved Assessment and Plan: Pt had bowel movement after laxatives no further vomit (12) Hypotension: Code(s): I95.9 - Hypotension, unspecified Status: Chronic Assessment and Plan: Bp better today Subjective Date/time seen: 05/08/21 12:01 Interval history: Dale Barros is a 70 year old male who was admitted by Dr. Luis on April 27 for abdominal pain and acute appendicitis. Pt is post op, appendectomy. Pt has percutaneous drain in situ. Pt had a bowel moveme
[2021-05-08] MEDS: HYDROcodone/acetaminophen (*CRX) 10-325 MG TABLET 1 TAB PO ×2 (13:21→17:46)
[2021-05-08] MEDS: PRAVASTATIN SODIUM 20 MG TABLET 40 MG PO (20:35)
[2021-05-09] VITALS (15 sets, daily range): BP systolic 107–146; BP diastolic 52–86; PULSE 58–86; RESP 14–20; TEMP 36.1–36.4; O2SAT 96–98
--- NOTE | 2021-05-09 00:51 | PCRCNOTE ---
pt has refused use of hospital unit since 05/01/21; RT explained the purpose/benefits of use to no avail
[2021-05-09] MEDS: IPRATROPIUM BR 0.02% INH SOLN 0.5 MG/2.5 ML VIAL INHALATION ×4 (03:03→19:11)
[2021-05-09] MEDS: ALBUTEROL SULFATE NEB 2.5 MG/0.5 ML INH INHALATION ×4 (03:04→19:10)
[2021-05-09] MEDS: METOCLOPRAMIDE HCL INJ 10 MG/2 ML VIAL IV PUSH ×3 (06:01→17:03)
[2021-05-09] MEDS: SALINE LOCK FLUSH 10 ML IV PUSH ×3 (06:02→21:28)
[2021-05-09 06:35] LABS: Hematocrit 37.2 % (42.0-52.0); Hemoglobin 12.3 g/dL (14.0-18.0); Mean Corpuscular HGB Conc 33.1 g/dl (32-36); Mean Corpuscular Hemoglobin 29.1 pg (26-34); Mean Corpuscular Volume 88.2 fl (80-100); Mean Platelet Volume 11.7 fl (7.4-10.4); Platelet Count Result 552 k/mm3 (150-375); Red Blood Count 4.22 M/mm3 (4.6-6.20); Red Cell Distribution Width 13.5 % (11.5-14.5); White Blood Count 12.5 K/mm3 (4.5-10.0)
[2021-05-09 06:45] LABS: Anion Gap 8 mmol/L (8-16); Blood Urea Nitrogen 8 mg/dL (9-20); Calcium 8.2 mg/dL (8.4-10.2); Carbon Dioxide 26 mmol/L (22-30); Chloride 99 mmol/L (98-107); Estimated CRCL calculation 110 ml/min; Estimated Glomerular Filt Rate > 60; Glucose 129 mg/dL (75-110); Potassium 4.2 mmol/L (3.4-5.0); Sodium 133 mmol/L (137-145)
[2021-05-09] MEDS: BENZONATATE 100 MG CAPSULE PO ×3 (08:01→16:17)
[2021-05-09] MEDS: SOTALOL HCL 80 MG TABLET PO ×2 (08:01→16:17)
[2021-05-09] MEDS: DOCUSATE SODIUM 100 MG CAPSULE PO ×2 (08:01→21:27)
[2021-05-09] MEDS: DIGOXIN TAB 125 MCG TABLET PO (08:01)
[2021-05-09] MEDS: FAMOTIDINE 20 MG TABLET PO ×2 (08:01→21:26)
[2021-05-09] MEDS: APIXABAN 5 MG TABLET PO ×2 (08:02→16:17)
--- NOTE | 2021-05-09 09:29 | PM.PNGS ---
Progress Note: A&P Assessment and Plan (1) Acute appendicitis: Qualifiers: Acute appendicitis type: unspecified acute appendicitis type Qualified Code(s): K35.80 - Unspecified acute appendicitis Code(s): K35.80 - Unspecified acute appendicitis Status: Acute Assessment and Plan: better, suspected leak from appendiceal staple line, WBC decreased, cont drain, cont diet for now, abx per ID Subjective Subjective Date/Time Seen: 05/09/21 09:29 feels better, decreased pain overall, c/o soreness around drain, having BM this am, feli FLD Review of Systems Review of Systems: All systems reviewed & are unremarkable except as noted in HPI and below Exam Const: General: cooperative, comfortable and no acute distress Nutritional Appearance: obese Orientation/consciousness: patient oriented x3 Resp: Effort & Inspection: normal respiratory effort Auscultation: diminished lung sounds Cardio: Rate: regular rate Rhythm: regular rhythm GI: Inspection: normal to inspection, distended and incision GI Palp: Yes Soft to palpation, Yes Tenderness to palpation present (GI), No Guarding due to palpation present (GI) and No Rigid due to palpation Other: soft, sl dist, decreased TTP RUQ, drain c purulent drainage Objective Data Vital Signs Vital Signs: Vital Signs - 24 hr 05/08/21 09:39 05/08/21 09:47 05/08/21 13:15 Temperature Pulse Rate 72 72 Respiratory Rate 14 14 Blood Pressure 124/68 Pulse Oximetry 05/08/21 14:00 05/08/21 14:31 05/08/21 14:40 Temperature 36.2 C L Pulse Rate 73 80 77 Respiratory Rate 16 15 14 Blood Pressure 117/59 L Pulse Oximetry 97 05/08/21 16:00 05/08/21 16:08 05/08/21 20:14 Temperature Pulse Rate 80 71 Respiratory Rate 16 Blood Pressure 140/82 Pulse Oximetry 05/08/21 20:24 05/08/21 22:00 05/09/21 03:05 Temperature 36.3 C L Pulse Rate 73 71 58 L Respiratory Rate 16 18 16 Blood Pressure 117/53 L Pulse Oximetry 97 05/09/21 03:15 05/09/21 06:00 05/09/21 08:01 Temperature 36.1 C L Pulse Rate 61 75 84 Respiratory Rate 16 20 Blood Pressure 113/52 L Pulse Oximetry 98 Intake/Output Intake/Output: Intake & Output 05/06/21 05/07/21 05/08/21 05/09/21 23:59 23:59 23:59 23:59 Intake Total 2400 2440 450 1000 Output Total 2775 1940 2855 1300 Balance -375 500 -2405 -300 Meds/Results Medications: Active Medications Generic Name Dose Route Start Last Admin Trade Name Freq PRN Reason Stop Dose Admin Acetaminophen 650 mg 05/01/21 18:39 05/08/21 08:34 Acetaminophen 325 Mg Tablet PO 650 mg Q6H PRN Administration Mild Pain (1-3) or Fever Albuterol 2.5 mg 05/01/21 02:28 05/09/21 03:04 Albuterol Sulfate Neb 2.5 Mg/0.5 Ml Inh INHALATION 2.5 mg Q6HRT KEILY Administration Albuterol 2.5 mg 05/01/21 02:27 Albuterol Sulfate Neb 2.5 Mg/0.5 Ml Inh INHALATION Q3HR PRN Shortness Of Breath Apixaban 5 mg 04/30/21 17:00 05/09/21 08:02 Apixaban 5 Mg Tablet PO 5 mg BID KEILY Administration Benzonatate 100 mg 04/30/21 17:00 05/09/21 08:01 Benzonatate 100 Mg Capsule PO 100 mg TID KEILY Administration Digoxin 125 mcg 04/27/21 11:45 05/09/21 08:01 Digoxin Tab 125 Mcg Tablet PO 125 mcg DAILY KEILY Administration Diltiazem HCl 240 mg 04/27/21 21:00 05/06/21 21:01 Diltiazem Hcl Cd 240 Mg Cap.Er.24h PO 240 mg HS KEILY Administration Docusate Sodium 100 mg 04/27/21 21:00 05/09/21 08:01 Docusate Sodium 100 Mg Capsule PO 100 mg Q12HR KEILY Administration Famotidine 20 mg 05/03/21 21:00 05/09/21 08:01 Famotidine 20 Mg Tablet PO 20 mg Q12HR KEILY Administration Piperacillin/Tazobactam/Dextrose 3.375 gm in 50 mls @ 100 mls/hr 05/06/21 09:30 05/09/21 07:10 Zosyn 3.375 Gm/D5w 50ml Pm IVPB Infused Q6HR KEILY Infusion Ipratropium Taylor 0.5 mg 05/01/21 02:30 05/09/21 03:03 Ipratropium Br 0.02% Inh Soln 0.5 Mg/2.5 Ml Vial INHAL
[2021-05-09] MEDS: HYDROcodone/acetaminophen (*CRX) 5-325 MG TABLET 1 TAB PO ×2 (10:44→17:03)
--- NOTE | 2021-05-09 15:10 | PM.IMPN ---
Progress Note: A&P Assessment and Plan (1) ANNE MARIE (acute kidney injury): Code(s): N17.9 - Acute kidney failure, unspecified Status: Resolved Assessment and Plan: Creat is 0.9 Diuretics stopped Nephrology rounding for anasarca (2) Acute appendicitis: Qualifiers: Acute appendicitis type: unspecified acute appendicitis type Qualified Code(s): K35.80 - Unspecified acute appendicitis Code(s): K35.80 - Unspecified acute appendicitis Status: Acute Assessment and Plan: His appendectomy with a retrocecal appendix, post op appendectomy Preoperative CT the abdomen showed gallbladder distention with stone in the gallbladder neck concerning for cholecystitis and ascites in R side of abdomen. Pt found to have intraabdominal abscess with positive BC Pt seen By ID started on iv Zosyn (3) Leukocytosis: Qualifiers: Leukocytosis type: unspecified Qualified Code(s): D72.829 - Elevated white blood cell count, unspecified Code(s): D72.829 - Elevated white blood cell count, unspecified Status: Acute Assessment and Plan: Wcc improving Pt is on IV zosyn seen BY ID sp appendectomy Sp ct chest and ct abdomen sp ascitic drain Consult ID (4) Cholelithiasis: Qualifiers: Cholelithiasis location: gallbladder Cholecystitis presence: without cholecystitis Biliary obstruction: without biliary obstruction Qualified Code(s): K80.20 - Calculus of gallbladder without cholecystitis without obstruction Code(s): K80.20 - Calculus of gallbladder without cholecystitis without obstruction Status: Acute Assessment and Plan: Chronic with possible cholecystitis (5) Paroxysmal atrial fibrillation: Code(s): I48.0 - Paroxysmal atrial fibrillation Status: Acute Assessment and Plan: Continue sotalol Eliquis on hold sp drain placement can continue eliquis. can be restarted (6) HTN (hypertension): Qualifiers: Hypertension type: unspecified Qualified Code(s): I10 - Essential (primary) hypertension Code(s): I10 - Essential (primary) hypertension Status: Acute Assessment and Plan: continue HTN medications Monitor BP (7) COPD (chronic obstructive pulmonary disease): Qualifiers: COPD type: unspecified COPD Qualified Code(s): J44.9 - Chronic obstructive pulmonary disease, unspecified Code(s): J44.9 - Chronic obstructive pulmonary disease, unspecified Status: Acute Assessment and Plan: Increase activity Increase hydration Encourage incentive spirometer BT, oral steroids and tessalon perles (8) KELLIE on CPAP: Code(s): G47.33 - Obstructive sleep apnea (adult) (pediatric); Z99.89 - Dependence on other enabling machines and devices Status: Acute Assessment and Plan: Auto titrating or home CPAP at night (9) Morbid obesity: Code(s): E66.01 - Morbid (severe) obesity due to excess calories Status: Acute Assessment and Plan: Encourage mobility (10) Ascites: Code(s): R18.8 - Other ascites Status: Acute Assessment and Plan: Post op ascites continue to watch. echo ordered, watching uo, cmp, nephrology consulted sp drain placement and iv abx for possible intraabdominal infection, pt had a larger drain in situ (11) Vomiting bile: Code(s): R11.14 - Bilious vomiting Status: Resolved Assessment and Plan: Pt had bowel movement after laxatives no further vomit (12) Hypotension: Code(s): I95.9 - Hypotension, unspecified Status: Chronic Assessment and Plan: Bp better today Subjective Date/time seen: 05/09/21 15:10 Interval history: Dale Barros is a 70 year old male who was admitted by Dr. Luis on April 27 for abdominal pain and acute appendicitis. Pt is post op, appendectomy. Pt has percutaneous drain in situ. Pt had a bowel movement. Pt found to
[2021-05-09] MEDS: SUCRALFATE SUSP 100 MG/ML 10 ML UDC 1000 MG PO ×2 (16:17→21:26)
[2021-05-09] MEDS: PRAVASTATIN SODIUM 20 MG TABLET 40 MG PO (21:26)
[2021-05-10] VITALS (12 sets, daily range): BP systolic 114–148; BP diastolic 52–72; PULSE 73–88; RESP 18–20; TEMP 36.3–36.4; O2SAT 95–98
[2021-05-10] MEDS: METOCLOPRAMIDE HCL INJ 10 MG/2 ML VIAL IV PUSH ×4 (00:23→17:47)
[2021-05-10] MEDS: ALBUTEROL SULFATE NEB 2.5 MG/0.5 ML INH INHALATION ×3 (01:58→21:47)
[2021-05-10] MEDS: IPRATROPIUM BR 0.02% INH SOLN 0.5 MG/2.5 ML VIAL INHALATION ×3 (01:59→21:47)
[2021-05-10] MEDS: HYDROcodone/acetaminophen (*CRX) 5-325 MG TABLET 1 TAB PO ×2 (03:14→12:03)
[2021-05-10] MEDS: SALINE LOCK FLUSH 10 ML IV PUSH ×3 (05:56→20:39)
[2021-05-10] MEDS: SUCRALFATE SUSP 100 MG/ML 10 ML UDC 1000 MG PO ×4 (05:56→20:38)
[2021-05-10] MEDS: DIGOXIN TAB 125 MCG TABLET PO (08:11)
[2021-05-10] MEDS: APIXABAN 5 MG TABLET PO ×2 (08:11→16:44)
[2021-05-10] MEDS: BENZONATATE 100 MG CAPSULE PO ×3 (08:11→16:44)
[2021-05-10] MEDS: FAMOTIDINE 20 MG TABLET PO ×2 (08:12→20:38)
[2021-05-10] MEDS: SOTALOL HCL 80 MG TABLET PO ×2 (08:13→16:44)
[2021-05-10 09:37] LABS: Basophils Absolute Auto 0.1 K/mm3 (0.0-0.1); Basophils Percent Auto 0.5 % (0.2-1.2); Eosinophils Absolute Auto 0.2 K/mm3 (0-0.3); Eosinophils Percent Auto 1.7 % (0-4.4); Hematocrit 37.7 % (42.0-52.0); Immature Granulocyte Absolute 0.23 K/mm3 (0.00-0.031); Lymphocytes Absolute Auto 2.22 K/mm3 (0.9-3.2); Lymphocytes Percent Auto 19.3 % (18.3-44.2); Mean Corpuscular HGB Conc 31.8 g/dl (32-36); Mean Corpuscular Hemoglobin 29.1 pg (26-34); Mean Corpuscular Volume 91.3 fl (80-100); Mean Platelet Volume 11.2 fl (7.4-10.4); Monocytes Absolute Auto 1.5 K/mm3 (0.1-0.6); Neutrophils Absolute Auto 7.3 K/mm3 (1.3-6.7); Neutrophils Percent Auto 63.5 % (45.5-73.1); Platelet Count Result 591 k/mm3 (150-375); Red Blood Count 4.13 M/mm3 (4.6-6.20); Red Cell Distribution Width 13.8 % (11.5-14.5); White Blood Count 11.5 K/mm3 (4.5-10.0)
[2021-05-10 10:01] LABS: Anion Gap 6 mmol/L (8-16); Blood Urea Nitrogen 8 mg/dL (9-20); Calcium 8.4 mg/dL (8.4-10.2); Carbon Dioxide 30 mmol/L (22-30); Chloride 99 mmol/L (98-107); Estimated CRCL calculation 99 ml/min; Estimated Glomerular Filt Rate > 60; Glucose 141 mg/dL (75-110); Potassium 4.5 mmol/L (3.4-5.0); Sodium 135 mmol/L (137-145)
--- NOTE | 2021-05-10 14:18 | PCNFU ---
Nutrition Follow-Up Complete: Nutrition Diagnosis: Inadequate oral intake related to abdominal pain and no appetite as evidenced by a completion of 5% of meals. Nutrition Goal: Have patient meet nutritional needs. Goal has been met, patient is consuming 100% of his meals. Nutrition recommendation: Continue with Heart Healthy diet and Ensure Enlive (350 calories and 20 grams of protein) supplement BID. Last recorded weight is 136.8 kg. Recommend obtaining new weight. Bowel Motility: Last documented on 05/09. Labs Reviewed:Hgb (12), Hct (37.7), Na (135), BUN (8), Glu (141) Meds Noted: [place], Eliquis, Benzonatate, Digoxin, Colace, Prinivil, Diltiazem HCl, Atrovent, Magnesium Oxide, Reglan, Zofran, Betapace, Sucralfate, Pravastatin Sodium 40mg, Additional Notes: Patient is enjoying having solid foods again. Patient has no complaints/concerns. Skin is within normal limits, except wound on abdomen from recent appendix surgery. Patient has less pain and gained his appetite back. Will follow up in 5 days.
--- NOTE | 2021-05-10 14:30 | PCNSR ---
On 05/10/21, the student, Tabatha Mei, provided care and completed [facility] documentation on this patient. I have reviewed the student's documentation and agree with the findings.
--- NOTE | 2021-05-10 14:53 | PM.PNGS ---
Progress Note: A&P Assessment and Plan (1) Acute appendicitis: Qualifiers: Acute appendicitis type: unspecified acute appendicitis type Qualified Code(s): K35.80 - Unspecified acute appendicitis Code(s): K35.80 - Unspecified acute appendicitis Status: Acute Assessment and Plan: Suspected leak from appendiceal staple line. WBC continues to go down, afebrile, and clinically improving. Cont perc drain to suction, which we plan to continue on discharge. Continue IV abx per ID. Consulted care coordination to discuss options for SNF on discharge to help with rehab, IV abx, and perc drain. May be able to remove clint tomorrow prior to discharge. Additional Plan I have discussed the plan of care with Dr. Luis. Subjective Subjective Date/Time Seen: 05/10/21 14:53 Post Op day: 13 Patient reports: feels better, pain is less, tolerating a regular diet, flatus, bowel movement (today) and afebrile Interval history: Patient feeling better today. Reports abdominal pain in right side of abd has improved. Tolerating a regular diet without nausea or vomiting. Voiding without difficulty. Has been able to walk around the room with standby assist. Review of Systems Respiratory: Respiratory: Reports no additional respiratory complaints, Denies cough and Denies dyspnea Gastrointestinal: Gastrointestinal: Reports as per HPI and Reports no additional gastrointestinal complaints Exam Const: General: comfortable, no acute distress, alert and awake Nutritional Appearance: obese Orientation/consciousness: patient oriented x3 Resp: Effort & Inspection: normal respiratory effort Auscultation: wheezes expiratory wheezes (anteriorly) Cardio: Rate: regular rate Rhythm: regular rhythm GI: Inspection: incision (Abdominal incisions clean and dry, clint intact.) and obesity GI Palp: Yes Soft to palpation, Yes Tenderness to palpation present (GI) (right-sided ), No Guarding due to palpation present (GI) and No Rebound tenderness present Auscultation: normal bowel sounds Other: right perc drain with lainez purulent output Neuro: General: moves all extremities and no focal motor deficits Extrem: General: no clubbing, cyanosis or edema and no calf tenderness Psych: Mental Status: mental status grossly normal Objective Data Vital Signs Vital Signs: Vital Signs - 24 hr 05/09/21 16:10 05/09/21 16:17 05/09/21 19:10 Temperature Pulse Rate 78 80 Respiratory Rate 20 Blood Pressure 146/72 H Pulse Oximetry 05/09/21 19:25 05/09/21 21:36 05/10/21 01:59 Temperature 97.6 F Pulse Rate 69 71 77 Respiratory Rate 18 18 18 Blood Pressure 107/53 L Pulse Oximetry 97 05/10/21 02:08 05/10/21 06:00 05/10/21 08:11 Temperature 97.6 F Pulse Rate 73 73 88 Respiratory Rate 18 18 Blood Pressure 114/66 Pulse Oximetry 96 05/10/21 08:13 05/10/21 08:32 05/10/21 08:40 Temperature Pulse Rate 88 83 85 Respiratory Rate 18 18 Blood Pressure Pulse Oximetry 05/10/21 14:00 Temperature 97.3 F L Pulse Rate 73 Respiratory Rate 20 Blood Pressure 123/52 L Pulse Oximetry 95 Intake/Output Intake/Output: Intake & Output 05/07/21 05/08/21 05/09/21 05/10/21 23:59 23:59 23:59 23:59 Intake Total 2440 450 1720 1030 Output Total 1941 6356 1883 1400 Balance 552 -8030 -798 -540 Meds/Results Medications: Active Medications Generic Name Dose Route Start Last Admin Trade Name Freq PRN Reason Stop Dose Admin Acetaminophen 650 mg 05/01/21 18:39 05/08/21 08:34 Acetaminophen 325 Mg Tablet PO 650 mg Q6H PRN Administration Mild Pain (1-3) or Fever Hydrocodone Bitart/Acetaminophen 1 tab 05/09/21 10:21 05/10/21 12:03 Hydrocodone/Acetaminophen (*Crx) 5-325 Mg Tablet PO 1 tab Q6H PRN Administration Pain Rated 4-6 Albuterol 2.5 mg 05/01/21 02:28 05/10/21 14:18 Albuterol Sulfate Neb 2.5 Mg/0.5 Ml Inh INHALATION Not Given Q6HRT KEILY Albuterol 2.5 mg 0
--- NOTE | 2021-05-10 14:59 | PM.IMPN ---
Progress Note: A&P Assessment and Plan (1) ANNE MARIE (acute kidney injury): Code(s): N17.9 - Acute kidney failure, unspecified Status: Resolved Assessment and Plan: Creat is 0.9 (2) Acute appendicitis: Qualifiers: Acute appendicitis type: unspecified acute appendicitis type Qualified Code(s): K35.80 - Unspecified acute appendicitis Code(s): K35.80 - Unspecified acute appendicitis Status: Acute Assessment and Plan: His appendectomy with a retrocecal appendix, post op appendectomy Pt found to have intraabdominal abscess with positive BC Pt seen By ID started on iv Zosyn tolerating diet encouraged to ambulate home soon (3) Leukocytosis: Qualifiers: Leukocytosis type: unspecified Qualified Code(s): D72.829 - Elevated white blood cell count, unspecified Code(s): D72.829 - Elevated white blood cell count, unspecified Status: Acute Assessment and Plan: Wcc improving now [id number] Pt is on IV zosyn seen BY ID sp appendectomy Sp ct chest and ct abdomen sp ascitic drain Consult ID (4) Cholelithiasis: Qualifiers: Cholelithiasis location: gallbladder Cholecystitis presence: without cholecystitis Biliary obstruction: without biliary obstruction Qualified Code(s): K80.20 - Calculus of gallbladder without cholecystitis without obstruction Code(s): K80.20 - Calculus of gallbladder without cholecystitis without obstruction Status: Acute Assessment and Plan: Chronic with possible cholecystitis (5) Paroxysmal atrial fibrillation: Code(s): I48.0 - Paroxysmal atrial fibrillation Status: Acute Assessment and Plan: Continue sotalol Eliquis on hold sp drain placement can continue eliquis. can be restarted (6) HTN (hypertension): Qualifiers: Hypertension type: unspecified Qualified Code(s): I10 - Essential (primary) hypertension Code(s): I10 - Essential (primary) hypertension Status: Acute Assessment and Plan: continue HTN medications Monitor BP (7) COPD (chronic obstructive pulmonary disease): Qualifiers: COPD type: unspecified COPD Qualified Code(s): J44.9 - Chronic obstructive pulmonary disease, unspecified Code(s): J44.9 - Chronic obstructive pulmonary disease, unspecified Status: Acute Assessment and Plan: Increase activity Increase hydration Encourage incentive spirometer BT, oral steroids and tessalon perles (8) KELLIE on CPAP: Code(s): G47.33 - Obstructive sleep apnea (adult) (pediatric); Z99.89 - Dependence on other enabling machines and devices Status: Acute Assessment and Plan: Auto titrating or home CPAP at night (9) Morbid obesity: Code(s): E66.01 - Morbid (severe) obesity due to excess calories Status: Acute Assessment and Plan: Encourage mobility (10) Ascites: Code(s): R18.8 - Other ascites Status: Acute Assessment and Plan: Post op ascites continue to watch. echo ordered, watching uo, cmp, nephrology consulted sp drain placement and iv abx for possible intraabdominal infection, pt had a larger drain in situ (11) Vomiting bile: Code(s): R11.14 - Bilious vomiting Status: Resolved Assessment and Plan: Pt had bowel movement after laxatives no further vomit (12) Hypotension: Code(s): I95.9 - Hypotension, unspecified Status: Chronic Assessment and Plan: Bp better today Subjective Date/time seen: 05/10/21 14:59 Interval history: Dale Barros is a 70 year old male who was admitted by Dr. Luis on April 27 for abdominal pain and acute appendicitis. Pt is post op day 13, appendectomy. Pt found to have intraabdominal abscess. WCC is improved. Pt has larger drain in situ draining well. PT encouraged to ambulate. Pt tolerating regular diet, hopeful DC soon. Review of Systems Review of Syst
[2021-05-10] MEDS: PRAVASTATIN SODIUM 20 MG TABLET 40 MG PO (20:38)
[2021-05-10] MEDS: DOCUSATE SODIUM 100 MG CAPSULE PO (20:38)
[2021-05-11] MEDS: METOCLOPRAMIDE HCL INJ 10 MG/2 ML VIAL IV PUSH ×3 (00:05→11:18)
[2021-05-11 01:25] VITALS: PULSE 72; RESP 20
[2021-05-11] MEDS: ALBUTEROL SULFATE NEB 2.5 MG/0.5 ML INH INHALATION ×2 (01:26→08:44)
[2021-05-11] MEDS: IPRATROPIUM BR 0.02% INH SOLN 0.5 MG/2.5 ML VIAL INHALATION ×2 (01:26→08:43)
[2021-05-11 01:35] VITALS: PULSE 76; RESP 20
[2021-05-11] MEDS: HYDROcodone/acetaminophen (*CRX) 5-325 MG TABLET 1 TAB PO ×2 (02:19→10:51)
[2021-05-11 05:33] VITALS: BP 121/52; PULSE 71; RESP 16; TEMP 36.4; O2SAT 98
[2021-05-11] MEDS: SUCRALFATE SUSP 100 MG/ML 10 ML UDC 1000 MG PO ×2 (05:45→10:52)
[2021-05-11] MEDS: SALINE LOCK FLUSH 10 ML IV PUSH (05:58)
[2021-05-11] MEDS: FAMOTIDINE 20 MG TABLET PO (08:24)
[2021-05-11] MEDS: SOTALOL HCL 80 MG TABLET PO (08:24)
[2021-05-11] MEDS: BENZONATATE 100 MG CAPSULE PO (08:24)
[2021-05-11] MEDS: DIGOXIN TAB 125 MCG TABLET PO (08:24)
[2021-05-11] MEDS: APIXABAN 5 MG TABLET PO (08:24)
[2021-05-11] MEDS: DOCUSATE SODIUM 100 MG CAPSULE PO (08:24)
[2021-05-11 08:44] VITALS: PULSE 78; RESP 20
[2021-05-11 09:02] VITALS: PULSE 68; RESP 20
--- NOTE | 2021-05-11 10:35 | PM.DS ---
DS: Admitting Diagnosis Admitting Diagnosis Admitting Diagnosis: Acute appendicitis DS: Discharge Diagnosis Discharge Diagnosis (1) Acute appendicitis: Qualifiers: Acute appendicitis type: unspecified acute appendicitis type Qualified Code(s): K35.80 - Unspecified acute appendicitis Code(s): K35.80 - Unspecified acute appendicitis Status: Acute Assessment and Plan: status post appendectomy complicated by anastomotic breakdown, continue antibiotics per ID and percutaneous drain, plan for re-scan next week, routine postop care, up 1-2 weeks (2) Morbid obesity: Code(s): E66.01 - Morbid (severe) obesity due to excess calories Status: Acute Assessment and Plan: dietary and lifestyle modifications (3) COPD (chronic obstructive pulmonary disease): Qualifiers: COPD type: unspecified COPD Qualified Code(s): J44.9 - Chronic obstructive pulmonary disease, unspecified Code(s): J44.9 - Chronic obstructive pulmonary disease, unspecified Status: Acute Assessment and Plan: back to baseline (4) CAD (coronary artery disease): Code(s): I25.10 - Atherosclerotic heart disease of [place] coronary artery without angina pectoris Status: Acute Assessment and Plan: back to baseline, did well with diuresis (5) Acute renal failure: Code(s): N17.9 - Acute kidney failure, unspecified Status: Acute Assessment and Plan: resolved, appreciate Nephrology input (6) Anastomotic leak of intestine: Code(s): K91.89 - Other postprocedural complications and disorders of digestive system Status: Acute Assessment and Plan: continue percutaneous drain and antibiotics per ID, re- scan next week (7) Ileus: Code(s): K56.7 - Ileus, unspecified Status: Acute Assessment and Plan: resolved, continue to encourage ambulation DS: Summary Hospital Course Reason for hospitalization: acute appendicitis Hospital Course: The patient is a 70-year-old male with multiple medical issues that presented to the emergency department complaining of abdominal pain. Workup, including imaging, was significant for what looked to be acute appendicitis. The patient was admitted to the surgical service made NPO and started on IV antibiotics. Upon evaluation, it was decided to bring the patient emergently for appendectomy. The patient underwent hand assisted laparoscopic appendectomy on 04/27, please see full operative report for details. The patient very complicated postoperative course. The patient both CHF and COPD exacerbation, requiring medical consultation. The patient also developed acute renal failure, necessitating nephrology consultation. The patient also subsequently developed an ileus and was noted to have a fluid collection in the right abdomen. The fluid collection required percutaneous drainage. Upon growing out E coli and Bacteroides, id was consulted for management. Reimaging was significant for what looked to be anastomotic breakdown of appendiceal stump. The drain was then upsized. The patient well after drainage and antibiotics. He will now be sent home with drain care and continued IV antibiotics through PICC line. The patient will have reimaging next week. The patient will follow up with me after imaging. The patient is now at his baseline in terms his CHF and COPD. Status at Discharge Functional status at discharge: uses cane/walker Overall status at discharge: patient is progressing back to baseline Time Spent with Patient Time attestation: Total time spent providing and/or coordinating discharge services: Time spent: Less than 30 minutes Exam Const: General: cooperative, comfortable, no acute distress, alert, awake and Physically active Nutritional Appearance: obese Orientation/consciousness: patient oriented x3 Limitations: no limitations Resp: Effort & Inspection: normal respiratory effort Auscu
--- NOTE | 2021-05-11 14:15 | PM.IMPN ---
Progress Note: A&P Assessment and Plan (1) ANNE MARIE (acute kidney injury): Code(s): N17.9 - Acute kidney failure, unspecified Status: Resolved Assessment and Plan: Creat is 0.9 (2) Acute appendicitis: Qualifiers: Acute appendicitis type: unspecified acute appendicitis type Qualified Code(s): K35.80 - Unspecified acute appendicitis Code(s): K35.80 - Unspecified acute appendicitis Status: Acute Assessment and Plan: His appendectomy with a retrocecal appendix, post op appendectomy Pt found to have intraabdominal abscess with positive BC Pt seen By ID started on iv Zosyn and is to continue as outpatient tolerating regualr diet encouraged to ambulate home today (3) Leukocytosis: Qualifiers: Leukocytosis type: unspecified Qualified Code(s): D72.829 - Elevated white blood cell count, unspecified Code(s): D72.829 - Elevated white blood cell count, unspecified Status: Acute Assessment and Plan: Wcc improving now [id number] Pt is on IV zosyn seen BY ID sp appendectomy Sp ct chest and ct abdomen sp ascitic drain (4) Cholelithiasis: Qualifiers: Cholelithiasis location: gallbladder Cholecystitis presence: without cholecystitis Biliary obstruction: without biliary obstruction Qualified Code(s): K80.20 - Calculus of gallbladder without cholecystitis without obstruction Code(s): K80.20 - Calculus of gallbladder without cholecystitis without obstruction Status: Acute Assessment and Plan: Chronic with possible cholecystitis pt will follow with surgery team as outpatient (5) Paroxysmal atrial fibrillation: Code(s): I48.0 - Paroxysmal atrial fibrillation Status: Acute Assessment and Plan: Continue sotalol And eliquis (6) HTN (hypertension): Qualifiers: Hypertension type: unspecified Qualified Code(s): I10 - Essential (primary) hypertension Code(s): I10 - Essential (primary) hypertension Status: Acute Assessment and Plan: continue HTN medications Monitor BP (7) COPD (chronic obstructive pulmonary disease): Qualifiers: COPD type: unspecified COPD Qualified Code(s): J44.9 - Chronic obstructive pulmonary disease, unspecified Code(s): J44.9 - Chronic obstructive pulmonary disease, unspecified Status: Acute Assessment and Plan: Increase activity Increase hydration Encourage incentive spirometer BT, oral steroids and tessalon perles (8) KELLIE on CPAP: Code(s): G47.33 - Obstructive sleep apnea (adult) (pediatric); Z99.89 - Dependence on other enabling machines and devices Status: Acute Assessment and Plan: Auto titrating on home CPAP at night (9) Morbid obesity: Code(s): E66.01 - Morbid (severe) obesity due to excess calories Status: Acute Assessment and Plan: Encourage mobility (10) Ascites: Code(s): R18.8 - Other ascites Status: Acute Assessment and Plan: Post op ascites and inection, pt doing well on iv abx for intraabdominal infection, pt has a larger drain in situ (11) Vomiting bile: Code(s): R11.14 - Bilious vomiting Status: Resolved Assessment and Plan: Resolved after bowel movement several days ago. (12) Hypotension: Code(s): I95.9 - Hypotension, unspecified Status: Chronic Assessment and Plan: Bp better today cont home medications as before Subjective Date/time seen: 05/11/21 14:15 Interval history: Dale Barros is a 70 year old male who was admitted by Dr. Luis on April 27 for abdominal pain and acute appendicitis. Pt is post op day 14, appendectomy. Pt found to have intraabdominal abscess. WCC is improved to 11. Pt has larger drain in situ draining well. Pt encouraged to ambulate. Pt tolerating regular diet, medical stable, ok for discharge today. Review of Systems Review of Sy
== END 2021-05-11 13:09 | disposition home or self-care (01) | DRG 342 ==
LOC: ANHED 05:04 → ANH2MED 06:09
PROVIDERS: Family Medicine; Internal Medicine; Internal Medicine Nephrology; Nurse Practitioner Family; Admitting Provider Surgery; Emergency Provider Emergency Medicine; PCP Family Medicine; Visit Provider Surgery
PROC: 0DTJ4ZZ Resection of Appendix, Percutaneous Endoscopic Approach (ICD-10-PCS; CPT 44970; principal; 2021-04-27 08:30)
DX: K35.80 Unspecified acute appendicitis (principal); K91.89 Other postprocedural complications and disorders of digestive system; K56.7 Ileus, unspecified; Z68.41 Body mass index [BMI] 40.0-44.9, adult; J44.1 Chronic obstructive pulmonary disease with (acute) exacerbation; N17.9 Acute kidney failure, unspecified; R18.8 Other ascites; B96.20 Unspecified Escherichia coli [E. coli] as the cause of diseases classified elsewhere; B96.6 Bacteroides fragilis [B. fragilis] as the cause of diseases classified elsewhere; R11.14 Bilious vomiting; I95.9 Hypotension, unspecified; I11.0 Hypertensive heart disease with heart failure; I50.9 Heart failure, unspecified; E66.01 Morbid (severe) obesity due to excess calories; K80.20 Calculus of gallbladder without cholecystitis without obstruction; I25.10 Atherosclerotic heart disease of native coronary artery without angina pectoris; I48.0 Paroxysmal atrial fibrillation; E78.5 Hyperlipidemia, unspecified; G47.33 Obstructive sleep apnea (adult) (pediatric); Z79.01 Long term (current) use of anticoagulants; Z79.899 Other long term (current) drug therapy; Z87.891 Personal history of nicotine dependence; Z95.1 Presence of aortocoronary bypass graft; Z98.890 Other specified postprocedural states; Z99.89 Dependence on other enabling machines and devices
CPT/HCPCS: 36415; 36569; 71046; 71275; 74018; 74019; 74176; 74177; 75989; 76700; 78226; 80048; 80053; 80069; 80076; 80162; 81001; 81003; 81050; 82040; 82570; 83036; 83690; 83735; 84156; 84300; 84540; 85025; 85027; 85610; 85730; 85999; 87040; 87070; 87075; 87076; 87077; 87205; 88304; 93005; 93306; 93970; 94640; 94667; 94668; 96361; 96374; 96375; 97110; 97116; 97161; 97165; 97530; 99285; A9270; A9537; C1729; C1751; C1769; J0330; J0744; J1100; J1170; J1885; J2250; J2270; J2405; J2543; J2550; J2704; J2710; J2765; J3010; J7030; J7120; J7512; Q9967

== ENCOUNTER 2021-05-21 11:13 | Outpatient (CLI) | payer MEDICARE, SELFPAY ==
--- NOTE | ~2021-05-21 | CT_ITS ---
EXAMINATION: CT abdomen wo con DATE: 05/21/2021 11:39 INDICATION: Peritoneal abscess with increasing abdominal pain TECHNIQUE: Computed tomography (CT) of the abdomen and pelvis was performed without intravenous contr ast. Automated exposure control and iterative reconstruction technique were employed. The dose-length product was 983.34 mGy-cm. COMPARISON: 05/08/2021 FINDINGS: Lung bases are clear. Heart size is normal. No pericardial or pleural effusion. Lipomatous hypertroph y of the interatrial septum. Postoperative change of prior median sternotomy and closure device place ment across the base of the left atrial appendage. 1.3 cm calcified gallstone at the neck of the gall bladder. The gallbladder remains nondilated measuring up to 3.3 cm maximal diameter but with very sub tle haziness to the pericholecystic fat consistent with acute appendicitis. Splenic calcifications co nsistent with old granulomatous disease. Liver, pancreas and bilateral adrenal glands are normal. Mil d bilateral renal atrophy with a few small atherosclerotic calcification is at the bilateral renal hi la. Formed loop of a percutaneous abscess drainage catheter along with minimal gas and fluid within t he now largely collapsed pericecal abscess cavity. Suture line at the tip of the cecum consistent wit h prior appendectomy. There are few tiny diverticula along the visualized descending colon without ad jacent from 3 change to suggest diverticulitis. No pathologically enlarged abdominal lymphadenopathy. Mild lumbar levocurvature with mild to moderate spondylosis. IMPRESSION: 1. Gallstone at the neck of the gallbladder which is nondilated but with subtle pericholecystic infla mmatory change consistent with acute cholecystitis. 2. Minimal residual gas and fluid as well as a previously placed right lower quadrant percutaneous ab scess drain within the now largely decompressed abscess cavity. Reviewed, dictated and finalized at location A. IMPRESSION: 1. Gallstone at the neck of the gallbladder which is nondilated but with subtle pericholecystic inflammatory change consistent with acute cholecystitis. 2. Minimal residual gas and fluid as well as a previously placed right lower qu adrant percutaneous abscess drain within the now largely decompressed abscess c garcia.
== END 2021-05-21 11:14 | disposition home or self-care (01) ==
PROVIDERS: PCP Family Medicine; Visit Provider Surgery
DX: K65.1 Peritoneal abscess (principal); K91.89 Other postprocedural complications and disorders of digestive system; K80.20 Calculus of gallbladder without cholecystitis without obstruction
CPT/HCPCS: 74150